=== PATIENT | male | born 1975 | race African-American/Black ===

== ENCOUNTER 2016-04-29 15:21 | Inpatient (IN) | payer MEDICAID, OTHER ==
--- NOTE | 2016-04-29 15:28 | EDPHY ---
H & P Time Seen by Provider: 04/29/16 15:23 HPI/ROS: CHIEF COMPLAINT: Increasing weakness, vomiting HISTORY OF PRESENT ILLNESS: The patient presents to the ED via ambulance with increasing weakness for the past several days and reportedly a history of several episodes of nonbilious vomiting today. The patient does have a history of HIV and is currently followed at [facility]. The patient reports that he believes he takes Truvada, Bactrim, azithromycin, gabapentin and Wilberforce The patient does report that he recently has been started on azithromycin for a possible MAC infection. Additionally the patient reports he did have a transfusion performed at [facility] last week. The patient denies symptoms of an acute infection. He had does report a history of fever x3 days. The patient denies acute diarrhea. The patient denies cough, myalgias or dysuria. REVIEW OF SYSTEMS: A comprehensive 10 point review of systems is otherwise negative aside from elements mentioned in the history of present illness. Source: Patient Exam Limitations: No limitations - Medical/Surgical History Hx Asthma: No Hx Chronic Respiratory Disease: No Hx Diabetes: No Hx Cardiac Disease: No Hx Renal Disease: No Hx Cirrhosis: No Hx Alcoholism: Yes Hx HIV/AIDS: Yes Hx Splenectomy or Spleen Trauma: No Other PMH: HIV, C-Diff, ETOH abuse, Drug abuse. - Social History Smoking Status: Former smoker - Physical Exam Exam: General Appearance: Thin, cachectic male Eyes: Pupils equal and round no pallor or injection ENT, Mouth: Mucous membranes moist Respiratory: There are no retractions, lungs are clear to auscultation Cardiovascular: Tachycardic Gastrointestinal: Abdomen is soft and nontender, no masses, bowel sounds normal Neurological: A&O, normal motor function, normal sensory exam, normal cranial nerves Skin: Warm and dry, no rashes Musculoskeletal: Neck is supple nontender Extremities: symmetrical, full range of motion Psychiatric: Patient is oriented X 3, there is no agitation Constitutional: Initial Vital Signs Temperature (C) 39.5 C H 04/29/16 15:34 Heart Rate 116 H 04/29/16 15:34 Respiratory Rate 20 04/29/16 15:34 Blood Pressure 107/77 04/29/16 15:34 O2 Sat (%) 97 04/29/16 15:34 O2 Delivery Mode Room Air Allergies/Adverse Reactions: decongestant's Allergy (Uncoded 04/29/16 17:01) Other-Enter Comments Home Medications: Medication Instructions Recorded Azithromycin [Zithromax] 500 mg PO DAILY 04/29/16 Darunavir Ethanolate [Prezista] 800 mg PO DAILY 04/29/16 Emtricitabine/Tenofovir [Truvada 1 tab PO DAILY 04/29/16 200MG/300MG (*)] Ethambutol HCl [Myambutol 400 MG 800 mg PO DAILY 04/29/16 (*)] Ferrous Sulfate [Ferrous Sulf 325 325 mg PO DAILY 04/29/16 MG (*)] Gabapentin [Neurontin 400 MG (*)] 400 mg PO BID 04/29/16 Hydrocodone/Acetaminophen [Wilberforce 1 - 2 tab PO Q8H PRN 04/29/16 5/325 (*)] Ondansetron Odt [Zofran Odt 4 mg 4 mg PO Q4H PRN 04/29/16 (*)] Rifabutin 150 mg PO DAILY 04/29/16 Ritonavir [Norvir] 100 mg PO DAILY 04/29/16 Sulfamethox/Tmp 800/160 mg 1 tab PO BID 04/29/16 [Bactrim Ds] Medical Decision Making - Diagnostics Imaging: Chest x-ray PA and lateral views: Images reviewed by myself and discussed with radiologist, negative for pneumonia or obvious source of infection. ED Course/Re-evaluation: The patient presents to the ED with a fever of 39.5. The patient was recently treated with azithromycin for possible MAC additionally the patient believes he has been on Bactrim chronically. The patient typically receives his HIV care in [place] however has been under the care of the [facility] in the past. In the ED today the patient was noted to be tachycardic and febrile. The patient was not hypotensive. The patient's venous lactate is normal. At this point time there is no evidence of a bacterial infection. I do feel given his HIV history he should be admitted for observation. Flu PCR is still pending. Consultation was made with Dr. Kalina Villalba who will admit the patient to the hospital this evening. Differential Diagnosis: Differential diagnosis considered includes influenza, pneumonia, gastroenteritis , bacteremia, metabolic abnormality - Data Points Laboratory Results: Laboratory Results 04/29/16 15:20 04/29/16 15:20 04/29/16 04/29/16 04/29/16 16:30 15:35 15:20 WBC 5.85 10^3/uL (3.80-9.50) RBC 4.12 L 10^6/uL (4.40-6.38) Hgb 11.7 L g/dL (13.7-17.5) Hct 36.3 L % (40.0-51.0) MCV 88.1 fL (81.5-99.8) MCH 28.4 pg (27.9-34.1) MCHC 32.2 L g/dL (32.4-36.7) RDW 17.1 H % (11.5-15.2) Plt Count 315 10^3/uL (150-400) MPV 9.6 fL (8.7-11.7) Neut % (Auto) 88.2 H % (39.3-74.2) Lymph % (Auto) 4.4 L % (15.0-45.0) [place] % (Auto) 5.5 % (4.5-13.0) Eos % (Auto) 0.2 L % (0.6-7.6) Baso % (Auto) 0.3 % (0.3-1.7) Nucleat RBC Rel Count 0.0 % (0.0-0.2) Absolute Neuts (auto) 5.16 10^3/uL (1.70-6.50) Absolute Lymphs (auto) 0.26 L 10^3/uL (1.00-3.00) Absolute Monos (auto) 0.32 10^3/uL (0.30-0.80) Absolute Eos (auto) 0.01 L 10^3/uL (0.03-0.40) Absolute Basos (auto) 0.02 10^3/uL (0.02-0.10) Absolute Nucleated RBC 0.00 10^3/uL (0-0.01) Immature Gran % 1.4 H % (0.0-1.1) Immature Gran # 0.08 10^3/uL (0.00-0.10) VBG Lactic Acid 1.0 mmol/L (0.7-2.1) Sodium 134 mEq/L (134-144) Potassium 4.1 mEq/L (3.5-5.2) Chloride 98 mEq/L (97-110) Carbon Dioxide 21 L mEq/l (22-31) Anion Gap 15 mEq/L (8-16) BUN 16 mg/dL (7-23) Creatinine 0.9 mg/dL (0.7-1.3) Estimated GFR > 60 Glucose 93 mg/dL (70-100) Calcium 8.9 mg/dL (8.5-10.4) Total Bilirubin 0.8 mg/dL (0.1-1.4) Conjugated Bilirubin 0.6 H mg/dL (0.0-0.5) Unconjugated Bilirubin 0.2 mg/dL (0.0-1.1) AST 149 H IU/L (17-59) ALT 119 H IU/L (21-72) Alkaline Phosphatase 130 H IU/L (38-126) Total Protein 9.0 H g/dL (6.3-8.2) Albumin 3.6 g/dL (3.5-5.0) Lipase 140.0 IU/L (23-300) Influenza A & B (PCR) Pending Medications Given: Discontinued Medications Acetaminophen (Tylenol) 1,000 mg PO EDNOW ONE Stop: 04/29/16 16:16 Last Admin: 04/29/16 16:15 Dose: 1,000 mg Sodium Chloride (Ns) 1,000 mls @ 0 mls/hr IV ONCE ONE PRN Reason: Wide Open Stop: 04/29/16 15:30 Last Admin: 04/29/16 16:15 Dose: 1,000 mls Ibuprofen (Motrin) 800 mg PO EDNOW ONE Stop: 04/29/16 16:17 Last Admin: 04/29/16 16:16 Dose: 800 mg Departure - Departure Disposition: [facility] Inpatient Acute Clinical Impression: Febrile disorder, Human immunodeficiency virus (HIV) infection Condition: Fair
[2016-04-29] MEDS ORDERED: NS 1,000 ML IV ONE (15:29)
[2016-04-29 15:37] LABS: % IMMATURE GRANULYOCYTES 1.4 % (0.0-1.1); ABSOLUTE IMMATURE GRANULOCYTES 0.08 10^3/uL (0.00-0.10); ADD DIFF? NO; ADD MORPH? NO; ADD SCAN? NO; ATYPICAL LYMPHOCYTE FLAG 0 (0-99); FRAGMENT RBC FLAG 20 (0-99); HEMATOCRIT 36.3 % (40.0-51.0); HEMOGLOBIN 11.7 g/dL (13.7-17.5); LEFT SHIFT FLG 70 (0-99); LIPEMIA HEMOLYSIS FLAG 80 (0-99); MEAN CELL HEMOGLOBIN 28.4 pg (27.9-34.1); MEAN CELL HEMOGLOBIN CONCENTR. 32.2 g/dL (32.4-36.7); MEAN CELL VOLUME 88.1 fL (81.5-99.8); MEAN PLATELET VOLUME 9.6 fL (8.7-11.7); PLATELET CLUMPS FLAG 10 (0-99); PLATELET COUNT 315 10^3/uL (150-400); RED BLOOD CELL COUNT 4.12 10^6/uL (4.40-6.38); RED CELL DISTRIBUTION WIDTH 17.1 % (11.5-15.2)
[2016-04-29 15:50] LABS: ALANINE AMINOTRANSFERASE 119 IU/L (21-72); ALBUMIN 3.6 g/dL (3.5-5.0); ALKALINE PHOSPHATASE 130 IU/L (38-126); ANION GAP 15 mEq/L (8-16); ASPARTATE AMINOTRANSFERASE 149 IU/L (17-59); BILIRUBIN,TOTAL 0.8 mg/dL (0.1-1.4); BILIRUBIN-CONJUGATED 0.6 mg/dL (0.0-0.5); BILIRUBIN-UNCONJUGATED 0.2 mg/dL (0.0-1.1); CALCIUM 8.9 mg/dL (8.5-10.4); CARBON DIOXIDE 21 mEq/l (22-31); CHLORIDE 98 mEq/L (97-110); CREATININE 0.9 mg/dL (0.7-1.3); GLOMERULAR FILTRATION RATE > 60; GLUCOSE 93 mg/dL (70-100); POTASSIUM 4.1 mEq/L (3.5-5.2); SODIUM 134 mEq/L (134-144)
[2016-04-29] MEDS ORDERED: ACETAMINOPHEN 500 MG TAB ONE (16:06)
[2016-04-29] MEDS ORDERED: IBUPROFEN 200 MG TAB PO ONE ×2 (16:06→16:16)
--- NOTE | 2016-04-29 16:12 | DX ---
Chest, AP and Lateral History: Fever, vomiting since this morning, weakness, dizziness, HIV infection Comparison: March 24, 2016 portable Findings: Lungs are clear, without infiltrate or consolidation. Heart size is normal. There is no oscar nopathy or mass lesion. There is no pleural effusion or pneumothorax. Bones are unremarkable for age. There are prominently gas-filled loops of bowel in the upper abdomen. Impression: 1. Normal chest without pneumonia. 2. Prominent gas-filled loops of bowel in the abdomen. Would a 2 view abdomen series be of any utilit y?
[2016-04-29] MEDS ORDERED: ACETAMINOPHEN 500 MG TAB PO ONE (16:15)
[2016-04-29] MEDS ORDERED: IBUPROFEN 600 MG TAB PO PRN (19:43)
[2016-04-29] MEDS ORDERED: ACETAMINOPHEN 325 MG TAB PO PRN (19:44)
[2016-04-29] MEDS: GABAPENTIN 400 MG CAP PO SCH (20:33)
[2016-04-29] MEDS: HYDROCODONE/APAP 5/325 TAB PO PRN (20:33)
--- NOTE | 2016-04-29 20:33 | GHP ---
[f rep st] HISTORY AND PHYSICAL DATE OF ADMISSION: 04/29/2016 CHIEF COMPLAINT: Fever. HISTORY: The patient is a 41-year-old HIV-positive male, who complains of fever for 3 days. He gets all of his HIV care through [facility]. He is on anti-retroviral therapy and has been compliant. 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 He now comes in with 3 days o f fever. He denies any cough. Denies any dysuria. He has chronic abdominal pain, which he attribut es to his MAC. He has chronic shortness of breath, which has also been attributed to his MAC. His m ain complaint is increased pain related to his lower extremity neuropathy. PAST MEDICAL HISTORY: 1. HIV. 2. MAC. 3. Neuropathy. MEDICATIONS: Please see computer record for full detailed list. ALLERGIES: No known drug allergies. SOCIAL HISTORY: No smoking. He drank heavily alcohol but quit in November and has been clean since that time. Also has a history of drug abuse in the distant past and he is currently clean. He has never been an IV drug abuser. He lives in an apartment in [place]. REVIEW OF SYSTEMS: Complete review of systems obtained. Review of systems negative on constitutiona l, HEENT, GI, pulmonary, cardiovascular, , hematology, skin, musculoskeletal, endocrine, and psych, except for positives and negatives in HPI. FAMILY HISTORY: Reviewed, noncontributory to presenting complaint. PHYSICAL EXAMINATION: GENERAL: Well-developed, well-nourished male, in no acute distress. VITAL SI GNS: Temperature is 39.5, pulse 95, blood pressure 99/59, saturating 96% on room air. EYE EXAMINATI ON: Normal conjunctivae. Pupils reactive to light. ENT: Normal ears, nose. Hearing intact. Norm al teeth. Oropharynx moist. NECK: Trachea midline. No thyromegaly. CHEST: Normal effort. LUNGS : Clear to auscultation bilaterally. CARDIOVASCULAR: Regular rhythm. No murmur. No lower extremi ty edema. ABDOMEN: Soft, nontender. No hepatosplenomegaly. SKIN: Warm, dry, intact. No rash. M USCULOSKELETAL: No cyanosis or clubbing. Strength 5/5 upper and lower extremities. NEUROLOGIC: Cr anial nerves intact. Normal sensation to light touch. PSYCH: Alert and oriented x3. Normal affect . Normal judgment. Normal memory. LABS: White count 5.85, hematocrit 36.3, platelets 315. Sodium 134, potassium 4.1, chloride 98, bic arb 21, BUN 16, creatinine 0.9, glucose 93. AST is 149, ALT is 119, total protein 9.0. Lactate is 1. 0. Influenza negative. Chest x-ray is negative for pneumonia. HOSPITAL COURSE: This case was discussed with Dr. Ander Alas, emergency room physician. He suspects viral illness. However, given his underlying HIV, does think he needs to be admitted for an observa tion period. He did not start any antibiotics in the emergency room. ASSESSMENT/PLAN: 1. Fever. At this point, no source is identified. The patient is very nontoxic appearing. This co uld all be a viral illness. We will continue to hold antibiotics pending cultures. Will consult Inf ectious Disease. 2. Human immunodeficiency virus. Unclear status regarding viral load and CD4 count. He adamantly d enies any medication noncompliance. We will continue his HAART. 3. Mycobacterium avium complex. Continue ethambutol, azithromycin, and rifabutin. 4. Neuropathy. Resume gabapentin. 5. Increased liver function tests. He does not have any right upper quadrant pain. We will check a n abdominal ultrasound, a viral hepatitis panel. CODE STATUS: Full. ADMISSION STATUS: 1. Will admit to observation pending clinical course. 2. DVT prophylaxis. He is low risk and observation, so will hold off starting pharmacologic prophyl axis at this time. /[id number]/MODL
[2016-04-29] MEDS: SULFAMETHOX/TMP 800/160 MG 1 TAB PO SCH (20:34)
[2016-04-29] MEDS: NS 1,000 ML IV SCH (20:54)
[2016-04-29] MEDS ORDERED: NS 1,000 ML BAG *FOR SEPSIS ORDER SET ONLY IV ONE (22:28)
[2016-04-29] MEDS: CEFEPIME HCL 2 GM in D5W 100 ML IV SCH (23:22)
[2016-04-29] MEDS ORDERED: ALTEPLASE 2 MG VIAL IVP PRN (23:49)
[2016-04-30] MEDS ORDERED: NS 1,000 ML BAG *FOR SEPSIS ORDER SET ONLY IV ONE (02:23)
--- NOTE | 2016-04-30 02:23 | HOSPPROG ---
Hospitalist Progress Note Assessment/Plan: Cross cover note: Called for BP of 70/50 by nursing, reviewed chart, evaluated patient, started on sepsis protocol. Despite aggressive fluid resuscitation, BP remains low with systolics in the 70s. Hx of HIV and MAC, reviewed cxr w/o e/o PNA. UA pending. Has had some mild abdominal pain and increased lfts, abd US ordered and read pending. Discussed with general surgery who will place central line. Pressors ordered. Abd CT to be performed when patient stabilized. CVP when line in place. Patient somnolent but arousable, lungs clear, abd mildly tender. > 45 minutes spent in care of this patient, more than half in face to face critical care time, transfer to ICU and coordination of care with general surgery and nursing. Objective: Vital Signs Temp Pulse Resp BP Pulse Ox 36.1 C 58 L 16 75/45 L 98 04/30/16 02:00 04/30/16 02:00 04/30/16 02:00 04/30/16 02:00 04/30/16 02:00 04/28/16 04/29/16 04/30/16 05:59 05:59 05:59 Intake Total 1000 Output Total 475 Balance 525 ICD10 Worksheet Patient Problems: Problems Problem Status Diagnosed Febrile illness Acute HIV (human immunodeficiency virus infection) Acute
[2016-04-30] MEDS ORDERED: VASOPRESSIN/DEXTROSE 250 ML IV SCH (02:30)
[2016-04-30] MEDS ORDERED: NOREPINEPHRINE BITARTRATE 4 MG in D5W 500 ML IV SCH (02:30)
[2016-04-30] MEDS: HYDROCODONE/APAP 5/325 TAB PO PRN ×3 (03:00→20:00)
[2016-04-30] MEDS ORDERED: DOPamine/DEXTROSE/250 ML BAG IV ONE (03:28)
[2016-04-30 03:36] LABS: COLOR PALE YELLOW; LEUKOCYTE ESTERASE,URINE NEGATIVE (NEGATIVE); NITRITE,URINE NEGATIVE (NEGATIVE)
[2016-04-30 04:14] LABS: MIXED VENOUS O2 SATURATION 68 % (65-75)
--- NOTE | 2016-04-30 05:00 | CPEKG ---
Heart Rate: 54 RR Interval: 1111 P-R Interval: 168 QRSD Interval: 78 QT Interval: 464 QTC Interval: 440 P Axtell: 65 QRS Axtell: 53 T Wave Axtell: 50 EKG Severity - ABNORMAL ECG - EKG Impression: SINUS RHYTHM EKG Impression: ABNORMAL T, CONSIDER ISCHEMIA, ANTERIOR LEADS Electronically Signed By: Maureen Lehman 30-Apr-2016 07:29:25
[2016-04-30 05:28] LABS: MIXED VENOUS O2 SATURATION 69 % (65-75)
[2016-04-30 05:33] LABS: % IMMATURE GRANULYOCYTES 1.8 % (0.0-1.1); ABSOLUTE IMMATURE GRANULOCYTES 0.07 10^3/uL (0.00-0.10); ADD DIFF? NO; ADD MORPH? NO; ADD SCAN? NO; ATYPICAL LYMPHOCYTE FLAG 0 (0-99); FRAGMENT RBC FLAG 0 (0-99); HEMATOCRIT 26.8 % (40.0-51.0); HEMOGLOBIN 8.6 g/dL (13.7-17.5); LEFT SHIFT FLG 80 (0-99); LIPEMIA HEMOLYSIS FLAG 80 (0-99); MEAN CELL HEMOGLOBIN 28.5 pg (27.9-34.1); MEAN CELL HEMOGLOBIN CONCENTR. 32.1 g/dL (32.4-36.7); MEAN CELL VOLUME 88.7 fL (81.5-99.8); MEAN PLATELET VOLUME 9.5 fL (8.7-11.7); PLATELET CLUMPS FLAG 0 (0-99); PLATELET COUNT 193 10^3/uL (150-400); RED BLOOD CELL COUNT 3.02 10^6/uL (4.40-6.38); RED CELL DISTRIBUTION WIDTH 17.2 % (11.5-15.2)
[2016-04-30 05:53] LABS: ALANINE AMINOTRANSFERASE 71 IU/L (21-72); ALBUMIN 1.9 g/dL (3.5-5.0); ALKALINE PHOSPHATASE 80 IU/L (38-126); ANION GAP 6 mEq/L (8-16); ASPARTATE AMINOTRANSFERASE 75 IU/L (17-59); BILIRUBIN,TOTAL 0.5 mg/dL (0.1-1.4); BILIRUBIN-CONJUGATED 0.4 mg/dL (0.0-0.5); BILIRUBIN-UNCONJUGATED 0.1 mg/dL (0.0-1.1); CALCIUM 7.1 mg/dL (8.5-10.4); CARBON DIOXIDE 21 mEq/l (22-31); CHLORIDE 119 mEq/L (97-110); GLOMERULAR FILTRATION RATE > 60; GLUCOSE 89 mg/dL (70-100); POTASSIUM 3.5 mEq/L (3.5-5.2); SODIUM 146 mEq/L (134-144); TOTAL PROTEIN 5.6 g/dL (6.3-8.2)
--- NOTE | 2016-04-30 07:54 | GOP ---
[f rep st] OPERATIVE REPORT DATE OF OPERATION: 04/30/2016 SURGEON: Joey Aguilar MD ANESTHESIA: Local. PREOPERATIVE DIAGNOSIS: Sepsis. POSTOPERATIVE DIAGNOSIS: Sepsis. PROCEDURE PERFORMED: Ultrasound-guided right internal jugular triple-lumen central venous catheter p lacement. FINDINGS: Triple-lumen successfully placed into internal jugular vein using ultrasound guidance. A postplacement chest film shows adequate placement without complication. SPECIMENS: None. ESTIMATED BLOOD LOSS: 2 cc. DESCRIPTION OF PROCEDURE: After reviewing the risks, benefits, and alternatives, the consent was sig gemma. A World Health Organization time-out was performed. The patient's right neck was then prepped and draped in typical sterile fashion. Using the ultrasound, I identified the internal jugular vein on the right side. I anesthetized the area using 1% lidocaine. After successfully anesthetized, I a ccessed the vein using a Seldinger technique. Threaded the wire through the vein and dilated, and jarquin bsequently placed the catheter within the vein. The triple-lumen, all 3 lumens functioned appropriat lisa. It was attached to the skin with a silk suture, and a sterile dressing with Biopatch was placed . A postplacement chest film was performed immediately after placement, showing adequate placement w ithout apparent complication. The patient tolerated the procedure well. /[id number]/MODL
--- NOTE | 2016-04-30 08:16 | DX ---
Portable Chest 252 a.m. History: Central line placement, fever, HIV, weakness and dizziness Comparison: Yesterday 1520 Findings: A right external jugular venous catheter is present with tip overlying the superior vena ca va. There is no pneumothorax. Lungs are clear. Inspiratory phase is prominent, pulmonary vessels are sparse and heart size is small, raising the possibility of air trapping. Impression: 1. Good central line placement without pneumothorax. 2.? Air trapping.
--- NOTE | 2016-04-30 08:56 | US ---
Complete Abdominal Ultrasound Indication: HIV. Increasing LFTs. Comparison: CT scan of the abdomen and pelvis dated March 13, 2016. Technique: Complete abdominal ultrasound is performed. Findings: Abdominal aorta is normal at 1.9 cm. Liver is normal in echotexture. It is 19 cm. Contour i s normal. Portal vein is patent. Hepatic veins are normal directional in flow. Gallbladder shows three nondependent structures adherent to the wall. Gallbladder polyp is a possibil ity. Gallbladder wall measures 1.7 mm. Common duct measures 4.5 mm. No stones or sludge otherwise. So nographic Noriega sign is negative. Right kidney measures 10.1 x 3.7 x 5.5 cm. Left kidney measures 10.2 x 4.2 x 5.3 cm. Both are normal. No hydronephrosis. No mass. Spleen is normal at 9 cm. Echotexture is mildly heterogeneous, but there is no focal mass. No ascites or pleural effusion. Impression: 1. Three nondependent adherent foci in the gallbladder, possibly representing polyps. 2. Nonspecific heterogeneous spleen. 3. Otherwise, normal complete abdominal ultrasound.
[2016-04-30] MEDS ORDERED: AZITHROMYCIN 500 MG PO SCH (09:00)
--- NOTE | 2016-04-30 09:18 | HOSPPROG ---
Hospitalist Progress Note Assessment/Plan: #Septic shock: unclear source. No e/o PNA, UA and influenza negative. Denies soure throat, diarrhea. Had abd pain last night with elevated LFTs. U/S unremarkable, but further eval with CT. Hep serologies pending -required dobutamine overnight, weaning off. Bradycardia with Levophed. Normal lactate. Cefepime overnight. -TTE with normal EF -Appreciate ID consultation #MAC infection: cont Ethambutal, Rifubutin, Azithro #Transaminitis: may be due to hypotension. US unremarkable. CT abd pending #HIV: cont home meds: followed by Dr. Hurtado at [facility] #Peripheral neuropathy: gabapentin #diet: regular #DVT ppx: ambulating #Disp: warrants inpatient admission with septic shock requiring IV abx, pressors Subjective: no SOB. No abd pain this morn. Objective: Vital Signs Temp Pulse Resp BP Pulse Ox 35.7 C L 60 14 91/51 L 100 04/30/16 07:00 04/30/16 08:00 04/30/16 08:00 04/30/16 08:00 04/30/16 08:00 Laboratory Results 04/30/16 05:10 04/30/16 05:10 04/29/16 04/30/16 05/01/16 05:59 05:59 05:59 Intake Total 6481 Output Total 0745 725 Balance 3956 -725 - Physical Exam Constitutional: no apparent distress, cachectic Eyes: PERRL Ears, Nose, Mouth, Throat: moist mucous membranes, hearing normal, other (no erythema, ulcerations) Cardiovascular: regular rate and rhythym, no murmur, rub, or gallop Respiratory: no respiratory distress, no rales or rhonchi Gastrointestinal: normoactive bowel sounds, soft, non-tender abdomen, no palpable masses Genitourinary: no bladder fullness, no bladder tenderness Skin: warm, normal color, other (no rash) Musculoskeletal: full muscle strength Neurologic: AAOx3 ICD10 Worksheet Patient Problems: Problems Problem Status Diagnosed Febrile illness Acute HIV (human immunodeficiency virus infection) Acute
[2016-04-30] MEDS: FERROUS SULFATE 325 MG TAB PO SCH (10:42)
[2016-04-30] MEDS: AZITHROMYCIN 250 MG TAB PO SCH (10:42)
[2016-04-30] MEDS: GABAPENTIN 400 MG CAP PO SCH ×2 (10:42→20:00)
[2016-04-30] MEDS: CEFEPIME HCL 2 GM in D5W 100 ML IV SCH ×2 (10:42→20:01)
[2016-04-30] MEDS: DARUNAVIR ETHANOLATE 800 MG TAB PO SCH (10:43)
[2016-04-30] MEDS: EMTRICITABINE/TENOFOVIR 200MG/300MG TAB PO SCH (10:43)
[2016-04-30] MEDS: ETHAMBUTOL HCL 400 MG TAB PO SCH (10:43)
[2016-04-30] MEDS: RITONAVIR 100 MG TAB PO SCH (10:44)
[2016-04-30] MEDS: SULFAMETHOX/TMP 800/160 MG 1 TAB PO SCH ×2 (10:44→20:00)
[2016-04-30] MEDS: RIFABUTIN 150 MG CAP PO SCH (10:44)
--- NOTE | 2016-04-30 12:57 | ECHO ---
[id number] + + [id number] : : [place] [address] : : [phone] + + Adult Echocardiographic Report + -------+ :Name: Maddison SIMPSON Date: 04/30/2016 09:54 AM : : Hospital Admission Number: [id number] Locati on: 257: :: 1975 Gender: Male Height: 72 in : :Age: 41 yrs Race: BAA Weight: 138 lb : :Reason For Study: Bradycardia/hypotensive/HIV : : BSA: 1.8 meter s2 : + -------+ Doppler Measurements & Calculations MV E max ivory: 65.2 cm/sec Ao V2 max: 107.2 cm/sec TR max ivory: 224.0 cm/sec MV A max ivory: 36.0 cm/sec Ao max P.6 mmHg TR max P.1 mmHg MV E/A: 1.8 RAP systole: 5.0 mmHg RVSP(TR): 25.1 mmHg Left Ventricle The left ventricle is normal in size. Left ventricular systolic function is normal. Ejection Fraction = 60%. The left ventricular wall motion is normal. Right Ventricle The right ventricle is normal size. Atria The left atrial size is normal. Right atrial size is normal. Mitral Valve The mitral valve is normal. There is trace to mild mitral regurgitation. Tricuspid Valve Normal tricuspid valve. There is mild tricuspid regurgitation. Right ventricular systolic pressure is normal. Aortic Valve The aortic valve opens well. Pulmonic Valve The pulmonic valve is not well visualized. Great Vessels The aortic root is normal size. Pericardium/Pleural There is no pericardial effusion. Conclusion A complete two-dimensional transthoracic echocardiogram was performed (2D, M-mode, Doppler and color flow Doppler). Limited views available for visualization. (1) Left ventricular systolic ejection fraction was normal (60%) - normal wall motion (2) No left ventricular hypertrophy (3) No diastolic dysfunction (not clearly assessed in this study) (4) Normal right ventricular size and function (5) Normal atrial dimensions (6) Trace/mild mitral regurgitation (7) Trileaflet aortic valve without sclerosis or insufficiency (8) Mild tricuspid regurgitation - RVSP was within normal limits (9) Poor visualization of the pulmonic valve (10) No comparison echocardiograms Final Reading Physician: Alana Limon signed on 04/30/2016 12:56 PM Ordering Physician: Emanuel Florence Performed By: Jie Varner, DURANCS
[2016-04-30] MEDS ORDERED: IOPAMIDOL (ISOVUE-300) 100 ML BTL IV ONE ×2 (13:10→13:23)
--- NOTE | 2016-04-30 15:54 | CT ---
CT Scan of the Abdomen and Pelvis (With Contrast) Clinical Indications: Fever x3 days with abdominal pain, HIV positive Comparison: Ultrasound yesterday (nonspecific heterogeneous spleen), CT March 13, 2016 Technique: Dilute contrast was given orally prior to scanning. mL of Isovue 300 were given intraveno usly by machine power injection. Multidetector helical CT imaging was performed from the diaphragm t o the symphysis pubis. Dose reduction techniques were utilized. Findings: Abdomen: There is a large central abdominal mesenteric tubular, undulating, fluid collection associat ed with a thin enhancing ring and small air-fluid levels at its nondependent margin that is consiste nt with either a featureless loop of bowel or a mesenteric abscess. On coronal reconstructions the le ft side of this fluid collection has one superior and one inferior projection. There is no percutaneo us access. The stomach is distended with food and fluid. There are dilated loops of edematous jejunum . The largest loop measures approximately 3.2 cm in diameter. As enteric edema makes definition diffi cult. There is certainly good contrast in the superior mesenteric artery and vein. There is minimal dependent bibasilar atelectasis with a tiny right basilar pleural effusion. The live r is normal. The portal vein and splenic vein are patent. There is chronic narrowing of the distal h epatic veins where they enter the inferior vena cava. There is no evidence for hepatic vein thrombosi s, but this anatomy might make the patient at risk for Budd-Chiari syndrome. The biliary ducts and ga llbladder are unremarkable. The pancreas and spleen are normal. The spleen is homogeneous and normal in size measuring 9 cm in length. It is stable since February 2016. The adrenal glands and kidneys are normal. No adenopathy and no masses are found. No aneurysm of the abdominal aorta. Pelvis: I suspect there is a similar abnormal fluid collection (suspect abscess) in the upper prerect al posterior pelvis. There is prominent fecal material in the rectum and distal colon. The urinary bl adder is unremarkable. No free fluid in the pelvis. No masses are identified. Bowel loops are teresa l. No evidence for pelvic abscess. Impression: 1. Mesenteric abscess (suspect) versus featureless loop of dilated bowel (doubt). There m ay be a second much smaller abscess in the prerectal pelvis. Consider repeat exam with oral and recta l contrast. This appears to be causing localized ileus. The stomach is distended and I suspect the pa tient would benefit from an NG tube. Results communicated to Dr. Blevins. General information for patients regarding this examination can be found at [email or web address]. If you have questions or comments about this report, please contact me at [phone] (hospital) or [phone] (cell).
[2016-04-30] MEDS: ONDANSETRON 4 MG/2 ML VIAL IVP PRN (18:02)
--- NOTE | 2016-04-30 21:31 | GCON ---
[f rep st] CONSULTATION INFECTIOUS DISEASES CONSULTATION DATE OF CONSULTATION: 04/30/2016 REFERRING PHYSICIAN: Di Blevins MD REASON FOR CONSULTATION: 1. Fevers. 2. Human immunodeficiency virus. HISTORY OF PRESENT ILLNESS: The patient is a 41-year-old male who was admitted to [facility] through the emergency room on the evening of 04/29/2016. The patient was admitted with a comp laint of fever for 3 days. He was febrile greater than 39 on admission. The patient is HIV positive . He gets his HIV care currently through [facility]. He has been on boosted darunavir and Truvad a therapy since November of last year. He is very compliant with treatment. The patient was diagno sed with MAC at that time as well, and has been on rifampin and ethambutol for that with azithromycin added only recently, 1 week ago. The patient now presents with fever, but no localizing symptoms. He has chronic abdominal pain and had some abdominal pain last night, but none today. The patient wa s admitted and started on cefepime. His antiretrovirals were continued. Currently, he is resting co mfortably in his bed. He appears nontoxic. Fever has not recurred since admission. PAST MEDICAL HISTORY: 1. HIV. 2. Mycobacterium avium complex. 3. Peripheral neuropathy. PAST SURGICAL HISTORY: None noted. ANTIBIOTICS: Cefepime. ALLERGIES: No known drug allergies. 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 Lives now in [place] and [place]. Fo rmer alcohol user, but no alcohol for nearly 5 months. Denies any tobacco use. Has a remote history of drug abuse. FAMILY HISTORY: Reviewed but noncontributory. REVIEW OF SYSTEMS: Other than that detailed above in the History of Present Illness, a comprehensive 10-system review is negative. PHYSICAL EXAMINATION: VITAL SIGNS: Temperature maximum is 39.5, temperature current is 36.3, heart rate is 75, respiratory rate is 12, blood pressure is 98/63. GENERAL: The patient is a well-formed, well-nourished, thin male in no acute distress. He is not toxic in appearance. He is alert and mimi ented x3. He is in a pleasant demeanor. HEENT: Normocephalic for age. Atraumatic. No scleral ict erus. No oral lesion. No drainage from the nares. Eyes: Lids and conjunctivae are within normal l imits. Pupils are equal and round bilaterally. NECK: Supple without meningismus. LUNGS: Clear to auscultation bilaterally with good effort. HEART: Regular rate and rhythm. No murmur, rub, or gal lop noted. No significant peripheral edema. ABDOMEN: Soft, nontender, no masses. SKIN: Warm and dry to the touch. No rash or lesion noted. MUSCULOSKELETAL: No muscle belly tenderness is noted. No joint enlargement, effusion, or arthritis is seen. NEURO: Cranial nerves II through XII seem to be intact. Peripheral sensation seems intact in extremities. LABORATORY DATA: Patient has a CBC dated 04/30/2016 which shows a white blood cell count of 3.90, he moglobin of 8.6, hematocrit 26.8, platelet count of 193. Differential is left-shifted with 83% segme nted neutrophils. Serum chemistries on 04/30/2016 show a sodium of 146, potassium of 3.5, chloride of 119, bicarbonate of 21, BUN of 19, and creatinine 1.0. Total bilirubin is 0.5, AST is 75, ALT is 71. Urinalysis on 04/30/2016 is normal. Influenza PCR is negative from 04/29/2016. Acute hepatitis panel is pending. Microbiologic Data: The patient has blood cultures from 04/29/2016 which are pending. Radiologic Data: The patient has a chest x-ray dated 04/30/2016 which shows good central line placem ent with no pneumothorax. The patient also has an abdominal CT dated 04/30/2016 which shows a possib le small collection in the mesentery. Otherwise benign. ASSESSMENT: Fever. Unclear etiology, but initially with some transaminitis. I do not think that th e possible collection seen in the abdominal pelvic CT scan correlates with symptoms. Would operations accountant dif ferently if patient was bacteremic, but I suspect there is nothing to be gained from trying to access this collection in the mesentery. I more favor this being a viral illness. Immune reconstitution i s a possibility, but the patient has been on antiretrovirals for a significantly long period of time, that immune reconstitution inflammatory syndrome secondary to Mycobacterium avium complex is probabl y unlikely at this time point. Will continue the antiretroviral therapy for human immunodeficiency v irus, as well as the antimycobacterial therapy for Mycobacterium avium complex. PLAN: 1. Continue home medications. 2. Continue cefepime empirically until cultures have matured. 3. Follow clinical course and temperature curve. Thank you. /[id number]/MODL
[2016-05-01 03:22] LABS: HEMATOCRIT 28.1 % (40.0-51.0); MEAN CELL HEMOGLOBIN 28.4 pg (27.9-34.1); MEAN CELL VOLUME 88.6 fL (81.5-99.8); RED BLOOD CELL COUNT 3.17 10^6/uL (4.40-6.38); RED CELL DISTRIBUTION WIDTH 17.1 % (11.5-15.2)
[2016-05-01 03:52] LABS: ALANINE AMINOTRANSFERASE 89 IU/L (21-72); ALBUMIN 2.5 g/dL (3.5-5.0); ALKALINE PHOSPHATASE 83 IU/L (38-126); ANION GAP 9 mEq/L (8-16); ASPARTATE AMINOTRANSFERASE 104 IU/L (17-59); BILIRUBIN,TOTAL 0.4 mg/dL (0.1-1.4); CALCIUM 8.1 mg/dL (8.5-10.4); CARBON DIOXIDE 19 mEq/l (22-31); CHLORIDE 108 mEq/L (97-110); CREATININE 0.7 mg/dL (0.7-1.3); GLOMERULAR FILTRATION RATE > 60; GLUCOSE 91 mg/dL (70-100); POTASSIUM 4.4 mEq/L (3.5-5.2); SODIUM 136 mEq/L (134-144); TOTAL PROTEIN 6.4 g/dL (6.3-8.2)
[2016-05-01] MEDS: HYDROCODONE/APAP 5/325 TAB PO PRN ×3 (03:57→20:27)
[2016-05-01] MEDS ORDERED: FAMOTIDINE 20 MG TAB PO ONE (05:00)
[2016-05-01] MEDS: CEFEPIME HCL 2 GM in D5W 100 ML IV SCH ×2 (08:18→20:27)
[2016-05-01] MEDS: GABAPENTIN 400 MG CAP PO SCH ×2 (08:18→20:27)
[2016-05-01] MEDS: EMTRICITABINE/TENOFOVIR 200MG/300MG TAB PO SCH (08:19)
[2016-05-01] MEDS: RIFABUTIN 150 MG CAP PO SCH (08:19)
[2016-05-01] MEDS: SULFAMETHOX/TMP 800/160 MG 1 TAB PO SCH ×2 (08:19→20:27)
[2016-05-01] MEDS: ETHAMBUTOL HCL 400 MG TAB PO SCH (08:19)
[2016-05-01] MEDS: RITONAVIR 100 MG TAB PO SCH (08:19)
[2016-05-01] MEDS: DARUNAVIR ETHANOLATE 800 MG TAB PO SCH (08:19)
[2016-05-01] MEDS: FERROUS SULFATE 325 MG TAB PO SCH (08:19)
[2016-05-01] MEDS: AZITHROMYCIN 250 MG TAB PO SCH (08:31)
--- NOTE | 2016-05-01 16:21 | PCMIDPN ---
Assessment/Plan: Assessment: Fever nonlocalizing in patient with underlying HIV. Unclear migue CD4 count. Patient is on treatment for disseminated MAC. This means is likely migue was less than 50. He is compliant on his boosted darunavir and Truvada anti- retroviral therapy. Clinically he has no localizing signs or symptoms. Reviewing the abdominal and pelvic CT scan from yesterday the patient may have a collection in his upper pelvis. We will repeat the CT scan of the abdomen pelvis with oral contrast in order to differentiate whether that is a loop of bowel or a true collection. In the meantime will continue empiric cefepime. Cultures thus far no growth to date. Plan: 1. Continue cefepime. 2. Repeat CT scan of the abdomen and pelvis with oral contrast. 3. Follow clinical course and fever curve. Subjective: Patient is resting in his hospital bed this afternoon. He is having fever. No localizing signs or symptoms. Denies abdominal pain. Objective: Cefepime # 2 Vital Signs Temp Pulse Resp BP Pulse Ox 39.4 C H 112 H 16 98/62 L 100 05/01/16 13:00 05/01/16 13:00 05/01/16 13:00 05/01/16 13:00 05/01/16 13:00 Laboratory Results 05/01/16 03:00 05/01/16 03:00 04/30/16 05/01/16 05/02/16 05:59 05:59 05:59 Intake Total 3307 Output Total 2700 900 Balance 607 -900 - Physical Exam General Appearance: WD/WN, alert, no apparent distress, thin, non-toxic Respiratory: lungs clear, normal breath sounds, No respiratory distress Cardiac/Chest: regular rate, rhythm, No tachycardia Extremities: non-tender, normal inspection Abdomen: non-tender, soft, No mass Skin: normal color, warm/dry, No rash Neuro/Psych: alert, normal mood/affect, oriented x 3 ICD10 Worksheet Patient Problems: Problems Problem Status Diagnosed Febrile illness Acute HIV (human immunodeficiency virus infection) Acute
--- NOTE | 2016-05-01 16:39 | PDINTPN ---
Director Telemetry Progress Note Assessment/Plan: Assessment: Fever: ? cause. Elevated transaminases and possible abscess on CT abdomen are the only localizing findings. On Cefepime. Elevated transaminases: Improved yesterday, up a bit today. Possible mesenteric abscess: Unusual to be essentially asymptomatic. Anemia: Stable today HIV: On antiretroviral Rx MAC: On triple therapy Plan: Repeat CT abdomen, with CV and PO contrast. Follow H/H, LFTs Continue current Cefepime, as well as antiretroviral therapy and Rx for MAC. 05/01/16 16:35 Subjective: Denies any localizing symptoms. No CP, dyspnea. No abdominal pain currently, no diarrhea Objective: Vital Signs Temp Pulse Resp BP Pulse Ox 39.4 C H 112 H 16 98/62 L 100 05/01/16 13:00 05/01/16 13:00 05/01/16 13:00 05/01/16 13:00 05/01/16 13:00 Laboratory Results 05/01/16 03:00 05/01/16 03:00 04/30/16 05/01/16 05/02/16 05:59 05:59 05:59 Intake Total 3307 Output Total 2700 900 Balance 607 -900 Physical Exam - Physical Exam General Appearance: alert, no apparent distress EENT: normal ENT inspection Neck: normal inspection Respiratory: normal breath sounds Cardiac/Chest: regular rate, rhythm, No edema Abdomen: normal bowel sounds, non-tender Skin: normal color, warm/dry Extremities: normal inspection Neuro/Psych: alert, normal mood/affect, oriented x 3 ICD10 Worksheet Patient Problems: Problems Problem Status Diagnosed Febrile illness Acute HIV (human immunodeficiency virus infection) Acute
--- NOTE | 2016-05-01 17:08 | GCON ---
[f rep st] CONSULTATION PULMONARY/CRITICAL CARE CONSULTATION DATE OF CONSULTATION: 04/30/2016 REFERRING PHYSICIAN: Di Blevins MD REASON FOR CONSULTATION: Evaluation and management of fevers and anemia. HISTORY: The patient is a 41-year-old male, who has a history of HIV with disseminated Mycobacterium avium complex, currently on HIV therapy through [facility]. He as in his usual state of feeling fairly well when, about 4 days ago, he had the onset of a fever. He was admitted to the hospital yes terday. He has some chronic abdominal pain that perhaps was a little bit worse on admission, but sandra t has now improved. He overall continues to feel poorly in a nonspecific way with no reports of naus ea or vomiting, muscle aches, chest pain, cough, shortness of breath, or urinary symptoms. PAST MEDICAL HISTORY: 1. HIV. 2. Peripheral neuropathy. MEDICATIONS: At the time of admission are Darunavir, azithromycin, rifabutin, ondansetron, Truvada, ritonavir, [place] p.r.n., gabapentin, iron sulfate, Bactrim, and ethambutol. ALLERGIES: None. SOCIAL HISTORY: The patient lives in [facility]. He has a remote history of drug abuse. He denies tobacco abuse and has not used alcohol in 5 months. FAMILY HISTORY: Unremarkable. REVIEW OF SYSTEMS: A complete review of systems adds nothing to the history of present illness. PHYSICAL EXAMINATION: GENERAL: The patient is awake, alert, in no acute distress. VITAL SIGNS: Bl ood pressure is 98/63 with a pulse 75. He is afebrile today, but had a temperature of 39.3 yesterday . His oxygen saturations re 100% on room air. HEENT: Normocephalic and atraumatic. No icterus. N SAM: Trachea is midline. CHEST: Clear to auscultation. CARDIAC: Regular rate and rhythm without murmur. ABDOMEN: Soft, nontender. Bowel sounds are present. EXTREMITIES: No clubbing, cyanosis, or edema. LABORATORY: White blood count is 3.9 with a hemoglobin of 8.6, platelet count is 193. Sodium is 146 up from 134 yesterday. carbon dioxide level is stable but low at 21. AST is 75 down from 149 and al bumin is 1.9. Venous lactate level is 1.4. IMAGING: A chest x-ray is unremarkable. Images were reviewed. A CT scan of the abdomen shows a pos sible mesenteric abscess. ASSESSMENT: 1. Fever: This has not been associated with any localizing symptoms, although patient does have reshma e chronic abdominal pain that may have been a bit worse when he came in, now resolved. A CT scan en ws an area that could represent an abscess, but his abdominal exam is quite benign for this. He has been started on empiric cefepime. 2. Anemia: Patient has a normocytic anemia with a hemoglobin dropping several points to 7.2 compare d to yesterday. This could be from some acute intraabdominal blood loss, but there also is a chronic component. 3. Elevated transaminases: These were elevated on admission, but have promptly come down to the mary r-normal range. RECOMMENDATIONS: 1. Continue empiric antibiotics. 2. Fluids as necessary to maintain blood pressure. 3. Consider repeat CT scan of the abdomen. 4. Follow hemoglobin level and liver function tests. /[id number]/MODL
--- NOTE | 2016-05-01 18:46 | HOSPPROG ---
Hospitalist Progress Note Assessment/Plan: #Septic shock: does not appear at all toxic. -CXR, flu, UA negative. CT abd with questionable abscess? Given recurrent fever , check CT -still on dopamine, good UOP. AM cortisol -Cont Cefepime #MAC infection: cont Ethambutal, Rifubutin, Azithro #Transaminitis: may be due to hypotension. US unremarkable. Repeat CT pending #HIV: cont home meds: followed by Dr. Hurtado at [facility] #Peripheral neuropathy: gabapentin #diet: regular #DVT ppx: ambulating #Disp: warrants inpatient admission with septic shock requiring IV abx, pressors Subjective: some nausea this morning Objective: Vital Signs Temp Pulse Resp BP Pulse Ox 37.7 C 74 19 87/53 L 97 05/01/16 17:00 05/01/16 18:00 05/01/16 18:00 05/01/16 18:00 05/01/16 18:00 Laboratory Results 05/01/16 03:00 05/01/16 03:00 04/30/16 05/01/16 05/02/16 05:59 05:59 05:59 Intake Total 3307 1245 Output Total 2700 900 Balance 607 345 - Physical Exam Constitutional: no apparent distress Eyes: PERRL Ears, Nose, Mouth, Throat: moist mucous membranes, hearing normal Cardiovascular: regular rate and rhythym, no murmur, rub, or gallop Respiratory: no respiratory distress, no rales or rhonchi Gastrointestinal: normoactive bowel sounds, soft, non-tender abdomen, no palpable masses Genitourinary: no bladder fullness Skin: warm, no fluctuance, no induration Musculoskeletal: full muscle strength Neurologic: AAOx3 Psychiatric: interacting appropriately ICD10 Worksheet Patient Problems: Problems Problem Status Diagnosed Febrile illness Acute HIV (human immunodeficiency virus infection) Acute
[2016-05-01] MEDS ORDERED: IOPAMIDOL (ISOVUE-300) 100 ML BTL IV ONE (19:04)
[2016-05-01] MEDS: MELATONIN 3 MG TAB PO SCH (20:28)
--- NOTE | 2016-05-01 21:35 | CT ---
CT Scan of the Abdomen and Pelvis (With Contrast) May 01, 2016 at 2006 Hours History: Abdominal and pelvic abscess follow-up. Comparison: CT dated April 30, 2016. Technique: Axial computed tomographic images of the abdomen and pelvis were obtained with the unevent ful intravenous administration of 90 mL Isovue-300 contrast. Additional oral contrast. Dose reduction techniques were utilized. CT Abdomen Findings: Lung bases: Minimal right lower lobe atelectasis. Small hiatal hernia. Liver: Normal. Biliary system: No obstruction. Spleen: Normal. Pancreas: Normal. Adrenals: Normal. Kidneys: No obstruction or solid masses.. Abdominal aorta: No aneurysm. Oral contrast in the small bowel and partially in the colon. Possible pneumoperitoneum in the left up per quadrant of the abdomen. No small bowel obstruction. In the midabdomen surrounded by bowel and me sentery, there is a thick-walled fluid collection without contrast which appears slightly serpiginous and measures 11.2 x 3.5 cm, consistent with an abscess. There is a smaller abscess between the aorta and superior mesenteric artery and just medial to the pancreatic uncinate process on image 111 of se jolanta 4, measuring [address] Pelvis Findings: A fluid collection noted anterior to the rectosigmoid colon in the midpelvis, abdiaziz suring 7.8 x 2.2 cm on image 256 of series 4, likely representing abscess. However, there is no oral contrast in the distal colon. A second possible abscess fluid collection noted in the upper midpelvis , V-shaped, measuring approximately 4 x 5 cm on image 215 of series 4. Impression: 1. Four abscess fluid collections noted, two in the midabdomen and two in the pelvis which are surrou nded by bowel and vessels and, therefore, are not amenable to CT-guided drainage. 2. Possible pneumoperitoneum left upper quadrant of abdomen, although incomplete opacification of the distal colon with oral contrast limits evaluation. 3. Minimal atelectasis right lower lobe with a small hiatal hernia. 4. No definite hepatic abscesses or urinary tract obstruction. Findings and recommendations discussed with emergency department physician, Dr. Arnaud Roe at 2100 h ours today. Final report concurs with initial preliminary interpretation.
[2016-05-02 03:33] LABS: HEMATOCRIT 27.4 % (40.0-51.0); HEMOGLOBIN 8.8 g/dL (13.7-17.5); MEAN CELL HEMOGLOBIN 27.8 pg (27.9-34.1); MEAN CELL HEMOGLOBIN CONCENTR. 32.1 g/dL (32.4-36.7); MEAN CELL VOLUME 86.7 fL (81.5-99.8); RED BLOOD CELL COUNT 3.16 10^6/uL (4.40-6.38)
[2016-05-02 03:57] LABS: ALANINE AMINOTRANSFERASE 78 IU/L (21-72); ALBUMIN 2.6 g/dL (3.5-5.0); ALKALINE PHOSPHATASE 89 IU/L (38-126); ANION GAP 10 mEq/L (8-16); ASPARTATE AMINOTRANSFERASE 83 IU/L (17-59); BILIRUBIN,TOTAL 0.6 mg/dL (0.1-1.4); CALCIUM 8.5 mg/dL (8.5-10.4); CARBON DIOXIDE 20 mEq/l (22-31); CHLORIDE 105 mEq/L (97-110); CREATININE 0.8 mg/dL (0.7-1.3); GLOMERULAR FILTRATION RATE > 60; GLUCOSE 86 mg/dL (70-100); POTASSIUM 4.1 mEq/L (3.5-5.2); SODIUM 135 mEq/L (134-144); TOTAL PROTEIN 6.5 g/dL (6.3-8.2)
[2016-05-02] MEDS: HYDROCODONE/APAP 5/325 TAB PO PRN ×3 (05:41→18:45)
[2016-05-02] MEDS: CEFEPIME HCL 2 GM in D5W 100 ML IV SCH ×2 (08:43→21:25)
--- NOTE | 2016-05-02 10:15 | PCMIDPN ---
Assessment/Plan: Assessment/Plan: * Fever in patient with AIDS and history of disseminated MAC: CD4 count in September. Continued high-grade fever and CT of abdomen and pelvis shows multifocal abscess formation which is not amenable to percutaneous drainage. This may all be secondary to disseminated MAC but other etiologies including opportunistic process sees are also of consideration. Will obtain surgical consultation as suspect this will require open drainage for diagnostic and therapeutic purposes. Will send AFB blood culture, serum cryptococcal antigen and urine histoplasma antigen. Immune oriental orthodox syndrome a consideration - will check CD4 count and viral load as this would provide additional information regarding this consideration. * Disseminated MAC: Describes having bone marrow biopsy performed in [place] for diagnosis. Continue azithromycin, ethambutol, and rifabutin. * AIDS: Continue Truvada and boosted darunavir. Will check viral load; patient states compliant with therapy. Time spent, greater than 35 minutes, of which half was spent in education plus counseling +coordination of care related to fever, AIDS and disseminated MAC 05/02/16 10:12 05/02/16 10:14 05/02/16 10:17 Subjective: Patient with mild abdominal discomfort. Objective: Vital Signs Temp Pulse Resp BP Pulse Ox 36.8 C 53 L 12 103/57 L 98 05/02/16 04:00 05/02/16 08:00 05/02/16 08:00 05/02/16 08:00 05/02/16 08:00 Laboratory Results 05/02/16 03:25 05/02/16 03:25 05/01/16 05/02/16 05/03/16 05:59 05:59 05:59 Intake Total 3307 2810 Output Total 2700 2500 700 Balance 607 310 -700 Tm 39.4 Cefepime # 3 Truvada/Ritonavir/darunavir Azithromycin/rifabutin/ethambutol CT abdomen/pelvis reviewed with Radiology showing multifocal abscess formation with collections not felt to be amenable to percutaneous drainage - Physical Exam General Appearance: alert, no apparent distress, cachetic EENT: No scleral icterus, No thrush, No conjunctival petechiae Respiratory: lungs clear, No respiratory distress Neck: other (Right-sided IJ triple-lumen catheter in place) Cardiac/Chest: regular rate, rhythm, No systolic murmur Extremities: No inflammation Abdomen: distended (Mild), tender (Mild in epigastrium), No peritoneal signs Male Genitalia: other (No genital ulcerations) Rectal: other (No perirectal ulcerations) Skin: No rash Neuro/Psych: alert, No confused ICD10 Worksheet Patient Problems: Problems Problem Status Diagnosed Febrile illness Acute HIV (human immunodeficiency virus infection) Acute
[2016-05-02] MEDS: AZITHROMYCIN 250 MG TAB PO SCH (11:12)
[2016-05-02] MEDS: GABAPENTIN 400 MG CAP PO SCH ×2 (11:14→21:24)
[2016-05-02] MEDS: FERROUS SULFATE 325 MG TAB PO SCH (11:14)
[2016-05-02] MEDS: DARUNAVIR ETHANOLATE 800 MG TAB PO SCH (11:14)
[2016-05-02] MEDS: RITONAVIR 100 MG TAB PO SCH (11:15)
[2016-05-02] MEDS: EMTRICITABINE/TENOFOVIR 200MG/300MG TAB PO SCH (11:15)
[2016-05-02] MEDS: ETHAMBUTOL HCL 400 MG TAB PO SCH (11:15)
[2016-05-02] MEDS: NS 1,000 ML IV SCH (11:16)
[2016-05-02] MEDS: RIFABUTIN 150 MG CAP PO SCH (11:20)
[2016-05-02] MEDS: SULFAMETHOX/TMP 800/160 MG 1 TAB PO SCH ×2 (11:24→21:24)
[2016-05-02] MEDS: ONDANSETRON 4 MG/2 ML VIAL IVP PRN (12:08)
[2016-05-02] MEDS ORDERED: BUPIVACAINE 0.5% 30 ML SDV ONE (13:27)
[2016-05-02] MEDS ORDERED: HEPARIN 1000 UNIT/1 ML MDV ONE (13:27)
[2016-05-02] MEDS ORDERED: ceFAZolin 1 GM/5 ML SYR ONE (13:27)
--- NOTE | 2016-05-02 15:02 | GCON ---
[f rep st] CONSULTATION REASON FOR CONSULTATION: Asked to see patient for evaluation of intraabdominal abscess on CT scan. HISTORY OF PRESENT ILLNESS: The patient is a 41-year-old male, who has a history of intraabdominal a bscess drainage by Interventional Radiology at [facility] in January 2016, who was doing well unt il approximately 5 days ago when he developed fevers. He does have chronic abdominal pain, which tod ay he reports he is much improved. He had a CT scan which demonstrated 4 fluid collections concernin g for abscess. The patient has a history of HIV. He has never had any abdominal surgeries. PAST MEDICAL HISTORY: HIV, neuropathy, MAC. ALLERGIES: No known drug allergies. MEDICATIONS: Zofran, Bactrim, Mycobutin, Myambutol, Norvir, Truvada, Neurontin, iron, Prezista, Norc o, Zithromax, melatonin, dopamine. PAST SURGICAL HISTORY: No abdominal or pelvic surgeries. REVIEW OF SYSTEMS: Negative 10-point review of systems. PHYSICAL EXAM: GENERAL: Patient is a very pleasant male in no apparent distress, alert. HEAD AND N SAM: Normocephalic, atraumatic. CHEST: CTA bilaterally. HEART: Regular rhythm and rate. ABDOMEN : No scars, nondistended, soft to palpation, mild right mid abdomen tenderness to palpation. Negati ve rebound. EXTREMITIES: No lower extremity edema. LABORATORY STUDIES: Normal white blood cell count, hematocrit 27. Grossly normal comprehensive pane l. RADIOLOGY: Abdominal CT scan: Mesenteric abscess, 4 fluid collections in total concerning for absce ss, possible pneumoperitoneum left upper quadrant versus loop of bowel. IMPRESSION: A 41-year-old male, initially admitted with sepsis, still on pressors, CT scan concernin g for intraabdominal abscess. RECOMMENDATION: The patient was seen and examined by Dr. Francois. Given the patient is still on press ors, we may wait 1 full day before initiating surgery. He has been consented for exploratory laparos copy, likely laparotomy and drainage of abscess. He will be kept n.p.o. Case is on hold for today u ntil further discussion with other specialists. /[id number]/MODL
[2016-05-02] MEDS ORDERED: MIDAZOLAM 2 MG/2 ML VIAL IVP ONE (16:30)
--- NOTE | 2016-05-02 17:00 | HOSPPROG ---
Hospitalist Progress Note Assessment/Plan: 41 yo M with hx of AIDS and disseminated MAC presenting with septic shock in setting of multifocal intraabdominal abscess # septic shock: remains on dopamine and cefepime, likely 2/2 next. Cultures with ngtd. # multifocal intra-abdominal abscess: noted on personal review of CT and not amenable to perc drainage. Etiology unclear, possibly related to disseminated MAC but other etiologies also possible. Will need ex lap and surgical consultation ordered. # disseminated MAC: continue azith, ethambutol, rifabutin. Appreciate ID # AIDS: continued on HAART # transaminitis: likely driven by sepsis # bradycardia: in setting of NE and what appeared to be 2nd degree block on telemetry, resolved off of NE # dispo: IP status, remains critically ill on pressors and IV abx Reviewed care plan with Dr. Kirkpatrick and multidisciplinary care team on rounds. Subjective: no significant overnight events, patient currently feeling better, pain controlled Objective: Vital Signs Temp Pulse Resp BP Pulse Ox 36.8 C 54 L 13 108/69 100 05/02/16 04:00 05/02/16 16:00 05/02/16 16:00 05/02/16 16:00 05/02/16 16:00 Microbiology 05/02/16 11:20 Mycobacterial Smear (JERONIMO) - Final Blood Laboratory Results 05/02/16 03:25 05/02/16 03:25 05/01/16 05/02/16 05/03/16 05:59 05:59 05:59 Intake Total 3307 2810 Output Total 2700 2500 900 Balance 607 310 -900 awake alert chronically ill appearing anicteric op clear rrr no mrg cta b soft mild ttp no cce warm dry well perfused oriented appropriate - Time Spent With Patient Time Spent with Patient: greater than 35 minutes Time Spent with Patient: Greater than 35 minutes spent on this patients care, greater than 50% of time spent counseling, educating, and coordinating care regarding the above mentioned plan. ICD10 Worksheet Patient Problems: Problems Problem Status Diagnosed Febrile illness Acute HIV (human immunodeficiency virus infection) Acute
[2016-05-02] MEDS ORDERED: FAMOTIDINE 20 MG/2 ML SDV IVP ONE (17:03)
--- NOTE | 2016-05-02 17:05 | SOAPPROG ---
SOAP Progress Note Assessment/Plan: Assessment: 41yo male with intrab abscess Plan: surgery scheduled for Monday05/02/16 17:04 Objective: Vital Signs Temp Pulse Resp BP Pulse Ox 36.8 C 54 L 13 108/69 100 05/02/16 04:00 05/02/16 16:00 05/02/16 16:00 05/02/16 16:00 05/02/16 16:00 Microbiology 05/02/16 11:20 Mycobacterial Smear (JERONIMO) - Final Blood Laboratory Results 05/02/16 03:25 05/02/16 03:25 05/01/16 05/02/16 05/03/16 05:59 05:59 05:59 Intake Total 3307 2810 Output Total 2700 2500 900 Balance 607 310 -900 ICD10 Worksheet Patient Problems: Problems Problem Status Diagnosed Febrile illness Acute HIV (human immunodeficiency virus infection) Acute
[2016-05-02] MEDS ORDERED: FAMOTIDINE 20 MG/NACL 50 ML IV ONE (19:00)
--- NOTE | 2016-05-02 19:16 | PDINTPN ---
Senior Consumer Insights Consultant Progress Note Assessment/Plan: Assessment: Fever: Secondary to abdominal abscesses. Will need surgery for drainage. Now scheduled for tomorrow.. Elevated transaminases: Improved yesterday, up a bit today. Anemia: Hematocrit 27, stable HIV: On antiretroviral Rx MAC: On triple therapy Plan: Continue antibiotics per Infectious Disease. Follow laboratory. Await timing of surgery. Subjective: Doing okay. Denies significant abdominal pain. Scheduled for surgery but now put on hold until tomorrow. Objective: Vital Signs Temp Pulse Resp BP Pulse Ox 36.8 C 71 10 L 106/65 100 05/02/16 04:00 05/02/16 18:00 05/02/16 18:00 05/02/16 18:00 05/02/16 18:00 Microbiology 05/02/16 11:20 Mycobacterial Smear (JERONIMO) - Final Blood Laboratory Results 05/02/16 03:25 05/02/16 03:25 05/01/16 05/02/16 05/03/16 05:59 05:59 05:59 Intake Total 3307 2810 1363 Output Total 2700 2500 1700 Balance 607 310 -337 CT abdomen: Consistent with intra-abdominal abscesses. Physical Exam - Physical Exam General Appearance: alert, no apparent distress, thin EENT: other (On room air) Neck: normal inspection Respiratory: lungs clear, decreased breath sounds (At bases) Cardiac/Chest: regular rate, rhythm, bradycardia Abdomen: soft, No normal bowel sounds (Diminished), No non-tender (Mild tenderness) Skin: normal color, warm/dry Lymphatic: no adenopathy Extremities: No pedal edema Neuro/Psych: no motor/sensory deficits, No cognition abnormalities ICD10 Worksheet Patient Problems: Problems Problem Status Diagnosed Febrile illness Acute HIV (human immunodeficiency virus infection) Acute
[2016-05-02] MEDS: MELATONIN 3 MG TAB PO SCH (21:25)
[2016-05-03] MEDS: HYDROCODONE/APAP 5/325 TAB PO PRN ×3 (03:52→21:38)
[2016-05-03 06:21] LABS: % IMMATURE GRANULYOCYTES 0.7 % (0.0-1.1); ABSOLUTE IMMATURE GRANULOCYTES 0.04 10^3/uL (0.00-0.10); ADD DIFF? NO; ADD MORPH? NO; ADD SCAN? NO; ATYPICAL LYMPHOCYTE FLAG 0 (0-99); FRAGMENT RBC FLAG 90 (0-99); HEMATOCRIT 28.5 % (40.0-51.0); HEMOGLOBIN 9.2 g/dL (13.7-17.5); LEFT SHIFT FLG 80 (0-99); LIPEMIA HEMOLYSIS FLAG 80 (0-99); MEAN CELL HEMOGLOBIN 28.1 pg (27.9-34.1); MEAN CELL HEMOGLOBIN CONCENTR. 32.3 g/dL (32.4-36.7); MEAN CELL VOLUME 87.2 fL (81.5-99.8); MEAN PLATELET VOLUME 9.2 fL (8.7-11.7); PLATELET CLUMPS FLAG 0 (0-99); PLATELET COUNT 227 10^3/uL (150-400); RED BLOOD CELL COUNT 3.27 10^6/uL (4.40-6.38)
[2016-05-03 06:39] LABS: MAGNESIUM 1.8 mg/dL (1.6-2.3)
--- NOTE | 2016-05-03 07:10 | GCON ---
[f rep st] CONSULTATION DATE OF CONSULTATION: 05/02/2016 HISTORY OF PRESENT ILLNESS: The patient is a 41-year-old male who is HIV positive but has been somew hat noncompliant with his medications. He was admitted with a febrile illness 3 days ago. He is pre sently on anti-retroviral therapy. He has also been diagnosed with MAC and is on treatment for that. He has some mild belly pain but is not really complaining a lot of pain except in his lower extremit ies where he has neuropathy. He has had no previous abdominal pain. CT scan shows some multiple inter loop abdominal abscesses which are not amenable to IR drainage. PAST MEDICAL HISTORY: Includes: 1. HIV. 2. MAC. 3. Neuropathy. ALLERGIES: None. REVIEW OF SYSTEMS: Reveals he does not smoke. Denies any major cardiopulmonary symptoms, diabetes, asthma, epilepsy or other major medical problems on a full complete review of systems. MEDICATIONS: Include azithromycin, emtricitabine, Darunavir, Pepcid, Norvir, Neurontin, Mycobutin, e thambutol, and some pain medicines. PHYSICAL EXAMINATION: GENERAL: Reveals a cooperative, thin 41-year-old male, who is in no acute dis tress. VITAL SIGNS: He is presently afebrile although apparently had a temperature of 39.5 when he w as admitted. His blood pressure has been running on the low side and he is on pressors at the moment. HEAD AND NECK: Reveals no adenopathy, normal occlusion. Neck is supple, nontender. CHEST: Clear with equal breath sounds. CARDIAC: Exam reveals regular rhythm without murmurs. ABDOMEN: Soft, w ithout organomegaly. He has some mild diffuse abdominal tenderness. Some bowel sounds. No abdomina l scars and no hernias. EXTREMITIES: Benign. Full pulses. IMPRESSION: Multiple intraabdominal abscesses of uncertain etiology in an immunocompromised male wit h human immunodeficiency virus. He has had a previous percutaneous drainage in [facility] 2 cedric hs ago. He has had no etiology for these abscesses. PLAN: Laparoscopy and/or laparotomy for drainage of multiple abscesses. We will let him stabilize o n his pressors and antibiotics overnight. We will plan on surgery tomorrow if he is stable. /[id number]/MODL
[2016-05-03] MEDS: DARUNAVIR ETHANOLATE 800 MG TAB PO SCH (08:19)
[2016-05-03] MEDS: AZITHROMYCIN 250 MG TAB PO SCH (08:19)
[2016-05-03] MEDS: EMTRICITABINE/TENOFOVIR 200MG/300MG TAB PO SCH (08:19)
[2016-05-03] MEDS: ETHAMBUTOL HCL 400 MG TAB PO SCH (08:20)
[2016-05-03] MEDS: GABAPENTIN 400 MG CAP PO SCH ×2 (08:20→21:34)
[2016-05-03] MEDS: RITONAVIR 100 MG TAB PO SCH (08:20)
[2016-05-03] MEDS: FERROUS SULFATE 325 MG TAB PO SCH (08:20)
[2016-05-03] MEDS: RIFABUTIN 150 MG CAP PO SCH (08:21)
[2016-05-03] MEDS: SULFAMETHOX/TMP 800/160 MG 1 TAB PO SCH ×2 (08:21→21:34)
[2016-05-03] MEDS: CEFEPIME HCL 2 GM in D5W 100 ML IV SCH ×2 (08:21→21:17)
--- NOTE | 2016-05-03 14:24 | PCMIDPN ---
Assessment/Plan: Assessment/Plan: * Fever in patient with AIDS and with multifocal intra-abdominal abscesses and history of disseminated MAC: Appreciate Dr. Francois consult. Plans for laparoscopic drainage this afternoon. Will send fluid and peritoneal tissue if possible for anaerobic, AFB, and fungal cultures. Will save tissue if possible for subsequent PCR testing if cultures and histopathology nondiagnostic. AFB blood culture, serum cryptococcal antigen and urine histoplasma antigen pending. Immune yarsani syndrome a consideration - viral load is markedly decreased from last value in our system which was greater than 1 million in September. Continue empiric cefepime although suspect this is unlikely related to primary bacterial etiology. * Disseminated MAC: Describes having bone marrow biopsy performed in [place] for diagnosis. Continue azithromycin, ethambutol, and rifabutin. * AIDS: Continue Truvada and boosted darunavir. Viral load 187. Suggests patient is taking anti-retroviral therapy. 05/03/16 14:20 05/03/16 14:25 Subjective: Patient without specific complaints. Plans for laparoscopic drainage of multifocal abdominal abscesses later today. Objective: Vital Signs Temp Pulse Resp BP Pulse Ox 36.6 C 54 L 17 104/62 100 05/03/16 04:00 05/03/16 08:00 05/03/16 08:00 05/03/16 08:00 05/03/16 08:00 Microbiology 05/02/16 11:20 Mycobacterial Smear (JERONIMO) - Final Blood Laboratory Results 05/03/16 06:00 05/02/16 03:25 05/02/16 05/03/16 05/04/16 05:59 05:59 05:59 Intake Total 2810 3313 Output Total 2500 2850 Balance 310 463 Cefepime # 4 Viral load 187 Urine histoplasma antigen and serum cryptococcal antigen pending AFB blood culture pending Blood cultures x2 no growth CD4 count pending - Physical Exam General Appearance: alert, no apparent distress, cachetic EENT: No scleral icterus Neck: other (Right IJ triple-lumen catheter nontender) Cardiac/Chest: regular rate, rhythm Abdomen: non-tender, No distended ICD10 Worksheet Patient Problems: Problems Problem Status Diagnosed Febrile illness Acute HIV (human immunodeficiency virus infection) Acute
--- NOTE | 2016-05-03 15:07 | HOSPPROG ---
Hospitalist Progress Note Assessment/Plan: 41 yo M with hx of AIDS and disseminated MAC presenting with septic shock in setting of multifocal intraabdominal abscess # septic shock: resolved and off of pressors, likely 2/2 next. Cultures with ngtd. # multifocal intra-abdominal abscess: noted on personal review of CT and not amenable to perc drainage. Etiology unclear, possibly related to disseminated MAC but other etiologies also possible. Plan for surgical exploration and drainage today # disseminated MAC: continue azith, ethambutol, rifabutin. Appreciate ID # AIDS: continued on HAART # transaminitis: likely driven by sepsis # bradycardia: in setting of NE and what appeared to be 2nd degree block on telemetry, resolved off of NE # dispo: IP status, remains critically ill on pressors and IV abx Reviewed care plan with Dr. Kirkpatrick and multidisciplinary care team on rounds. Subjective: no significant overnight events, patient currently feeling better, no pain, plan for surgery today Objective: Vital Signs Temp Pulse Resp BP Pulse Ox 36.6 C 54 L 17 104/62 100 05/03/16 04:00 05/03/16 08:00 05/03/16 08:00 05/03/16 08:00 05/03/16 08:00 Microbiology 05/02/16 11:20 Mycobacterial Smear (JERONIMO) - Final Blood Laboratory Results 05/03/16 06:00 05/02/16 03:25 05/02/16 05/03/16 05/04/16 05:59 05:59 05:59 Intake Total 2810 3313 Output Total 2500 2850 Balance 310 463 awake alert chronically ill appearing anicteric op clear rrr no mrg cta b soft mild ttp no cce warm dry well perfused oriented appropriate ICD10 Worksheet Patient Problems: Problems Problem Status Diagnosed Febrile illness Acute HIV (human immunodeficiency virus infection) Acute
[2016-05-03] MEDS ORDERED: BUPIVACAINE 0.5% 30 ML SDV ONE (17:18)
[2016-05-03] MEDS ORDERED: HEPARIN 1000 UNIT/1 ML MDV ONE (17:18)
[2016-05-03] MEDS ORDERED: ceFAZolin 1 GM/5 ML SYR ONE (17:19)
[2016-05-03] MEDS ORDERED: fentaNYL 100 MCG/2 ML INJ ONE (17:50)
[2016-05-03] MEDS ORDERED: PROPOFOL 200 MG/20 ML VIAL ONE (17:50)
[2016-05-03] MEDS ORDERED: LIDOCAINE 2% 5 ML SDV ONE (17:51)
[2016-05-03] MEDS ORDERED: ROCURONIUM 50 MG/5 ML VIAL ONE (17:51)
[2016-05-03] MEDS ORDERED: VASOPRESSIN 20 UNIT/ML VIAL ONE (18:01)
[2016-05-03] MEDS ORDERED: HYDROmorphONE/DILAUDID 2 MG/ML SYR ONE (18:25)
[2016-05-03] MEDS ORDERED: NALOXONE HCL 0.4 MG/ML INJ IVP PRN (19:21)
[2016-05-03] MEDS: HYDROmorphONE/DILAUDID 1 MG/ML SYR IVP PRN (19:53)
[2016-05-03] MEDS: ONDANSETRON 4 MG/2 ML VIAL IVP PRN (19:56)
[2016-05-03] MEDS: HYDROmorphONE/DILAUDID 6 MG/30 ML PCA IV PRN (19:57)
--- NOTE | 2016-05-03 20:36 | PDINTPN ---
Sanding Machine Tender Progress Note Assessment/Plan: Assessment: Fever: Secondary to abdominal abscesses. Awaiting surgery for drainage. Elevated transaminases: Improved. Anemia: Hematocrit 28, stable HIV: On antiretroviral Rx MAC: On triple therapy Plan: Continue antibiotics per Infectious Disease. Continue supportive care. Follow laboratory. Await surgery, findings, cultures. Subjective: Doing okay, waiting surgery. Denies abdominal pain. Complains of leg pain bilaterally, chronic Objective: Vital Signs Temp Pulse Resp BP Pulse Ox 36.5 C 60 15 144/92 H 99 05/03/16 12:00 05/03/16 20:00 05/03/16 20:00 05/03/16 20:00 05/03/16 20:00 Microbiology 05/03/16 18:46 Mycobacterial Smear (JERONIMO) - Final Peritoneal Fluid - Eswab Mycobacterial Culture - Final 05/03/16 18:40 Mycobacterial Smear (JERONIMO) - Final Peritoneal Fluid - Eswab Mycobacterial Culture - Final 05/02/16 11:20 Mycobacterial Smear (JERONIMO) - Final Blood Laboratory Results 05/03/16 06:00 05/02/16 03:25 05/02/16 05/03/16 05/04/16 05:59 05:59 05:59 Intake Total 2810 3313 Output Total 2500 2850 60 Balance 310 463 -60 Physical Exam - Physical Exam General Appearance: alert, no apparent distress EENT: other (On room air) Neck: normal inspection Respiratory: lungs clear, decreased breath sounds (At bases) Cardiac/Chest: regular rate, rhythm, bradycardia Abdomen: No normal bowel sounds (Decreased bowel sounds, some present, mild tenderness.) Skin: normal color, warm/dry Lymphatic: no adenopathy Extremities: No pedal edema Neuro/Psych: no motor/sensory deficits, No cognition abnormalities ICD10 Worksheet Patient Problems: Problems Problem Status Diagnosed Febrile illness Acute HIV (human immunodeficiency virus infection) Acute
[2016-05-03] MEDS: NS 1,000 ML IV SCH (21:25)
[2016-05-03] MEDS: MELATONIN 3 MG TAB PO SCH (21:33)
--- NOTE | 2016-05-03 22:50 | POSTOPPROG ---
Post Op Note Date of Operation: 05/03/16 Surgeon: Jas Francois Floriculturist: Hortensia Marr Anesthesiologist: Tim Carroll Anesthesia: GET(General Endotracheal) Pre-op Diagnosis: HIV, abdominal abscess Post-op Diagnosis: same Procedure: ex-laparoscopy, laparotomy, adhesiolysis, drainage abdominopelvic abscess Findings: see below Inf/Abcess present in the surg proc area at time of surgery?: Yes Depth: Organ Space EBL: 50-100 Complications: none Drains: Catalino Morton (x2) Specimen(s): peritoneal tissue and abscess material sent for culture and pathology Findings: communicating interlooped abscess c gross purulence, granular appearance of friable bowel, multiple small white "cheesy" deposits on bowel serosa and peritoneum
[2016-05-04 04:44] LABS: HEMATOCRIT 33.9 % (40.0-51.0); HEMOGLOBIN 10.6 g/dL (13.7-17.5); MEAN CELL HEMOGLOBIN 28.2 pg (27.9-34.1); MEAN CELL HEMOGLOBIN CONCENTR. 31.3 g/dL (32.4-36.7); MEAN CELL VOLUME 90.2 fL (81.5-99.8); RED BLOOD CELL COUNT 3.76 10^6/uL (4.40-6.38); RED CELL DISTRIBUTION WIDTH 16.9 % (11.5-15.2)
[2016-05-04 04:59] LABS: ALANINE AMINOTRANSFERASE 76 IU/L (21-72); ALBUMIN 2.8 g/dL (3.5-5.0); ALKALINE PHOSPHATASE 90 IU/L (38-126); ANION GAP 8 mEq/L (8-16); ASPARTATE AMINOTRANSFERASE 63 IU/L (17-59); BILIRUBIN,TOTAL 0.7 mg/dL (0.1-1.4); CALCIUM 8.8 mg/dL (8.5-10.4); CARBON DIOXIDE 23 mEq/l (22-31); CHLORIDE 109 mEq/L (97-110); CREATININE 0.8 mg/dL (0.7-1.3); GLOMERULAR FILTRATION RATE > 60; GLUCOSE 92 mg/dL (70-100); POTASSIUM 4.9 mEq/L (3.5-5.2); SODIUM 140 mEq/L (134-144)
[2016-05-04] MEDS: HYDROCODONE/APAP 5/325 TAB PO PRN ×3 (06:21→18:26)
[2016-05-04] MEDS: CEFEPIME HCL 2 GM in D5W 100 ML IV SCH (08:39)
[2016-05-04] MEDS: RITONAVIR 100 MG TAB PO SCH (09:08)
[2016-05-04] MEDS: FERROUS SULFATE 325 MG TAB PO SCH (09:08)
[2016-05-04] MEDS: GABAPENTIN 400 MG CAP PO SCH ×2 (09:08→20:14)
[2016-05-04] MEDS: AZITHROMYCIN 250 MG TAB PO SCH (09:09)
[2016-05-04] MEDS: EMTRICITABINE/TENOFOVIR 200MG/300MG TAB PO SCH (09:09)
[2016-05-04] MEDS: DARUNAVIR ETHANOLATE 800 MG TAB PO SCH (09:09)
[2016-05-04] MEDS: SULFAMETHOX/TMP 800/160 MG 1 TAB PO SCH ×2 (09:09→20:14)
[2016-05-04] MEDS: ETHAMBUTOL HCL 400 MG TAB PO SCH (09:09)
[2016-05-04] MEDS: RIFABUTIN 150 MG CAP PO SCH (09:34)
--- NOTE | 2016-05-04 10:17 | SOAPPROG ---
SOAP Progress Note Assessment/Plan: Assessment: 41yo male s/p laparotomy, drainage of intraabdominal abscess, culutres/path pending has been drinking some liquids without difficulty, was unaware he was NPO, no flatus yet. Pain controlled, still on dopamine PE awake alert Abdomen midline bandages dry, KARLEE drains with small amount of serosag drainage, soft to palpation. Plan await further bowel function before advancing diet f/u cultures 05/02/16 17:04 05/04/16 10:14 Objective: Vital Signs Temp Pulse Resp BP Pulse Ox 36.7 C 78 17 88/60 L 100 05/04/16 08:00 05/04/16 08:00 05/04/16 08:00 05/04/16 08:00 05/04/16 08:00 Microbiology 05/03/16 18:46 Gram Stain - Final Peritoneal Fluid - Eswab 05/03/16 18:24 Gram Stain - Final Abdomen - Tissue 05/03/16 18:40 Gram Stain - Final Peritoneal Fluid - Eswab 05/03/16 18:46 Mycobacterial Smear (JERONIMO) - Final Peritoneal Fluid - Eswab Mycobacterial Culture - Final 05/03/16 18:40 Mycobacterial Smear (JERONIMO) - Final Peritoneal Fluid - Eswab Mycobacterial Culture - Final 05/02/16 11:20 Mycobacterial Smear (JERONIMO) - Final Blood Laboratory Results 05/04/16 04:35 05/04/16 04:35 05/03/16 05/04/16 05/05/16 05:59 05:59 05:59 Intake Total 3313 982 Output Total 2850 110 Balance 463 872 ICD10 Worksheet Patient Problems: Problems Problem Status Diagnosed Febrile illness Acute HIV (human immunodeficiency virus infection) Acute
--- NOTE | 2016-05-04 10:23 | PCMIDPN ---
Assessment/Plan: # HIV/AIDS, CD4 48 (19%): Continue Truvada and boosted darunavir. Viral load 187 suggests compliance with anti-retroviral therapy --not clear to me why he is on Bactrim twice daily, will discuss # Fever, abdominal abscess: Appreciate surgical assistance with intra op debridement and sample collection. Suspect due to immune reconstitution to dMAC. Cryptococcus antigen negative, histoplasmosis urine antigen pending. Standard Gram stain from OR negative for organisms. AFB smear pending --discontinue cefepime --continue ARV and MAC therap --obtaining records from . Talked to PCP, Payam Hager who will forward records. # dMAC, diagnosed approximately 02/14/2016: patient was on ethambutol and rifabutin alone for approximately 8 weeks initially by accident and approx 2 weeks Azithro was added --continue azithromycin, ethambutol, rifabutin. Rifabutin dose reduced to 150 mg because of interaction with darunavir. Azithromycin dosed 500 or 600 mg okay. --no additional respiratory or contact precautions needed # transaminitis: Slight improvement since admission. Hepatitis serology is negative. Suspect due to dMAC Subjective: Patient has some expected abdominal pain postoperatively. Otherwise minimal complaints Objective: Vital Signs Temp Pulse Resp BP Pulse Ox 36.7 C 78 17 88/60 L 100 05/04/16 08:00 05/04/16 08:00 05/04/16 08:00 05/04/16 08:00 05/04/16 08:00 Microbiology 05/03/16 18:46 Gram Stain - Final Peritoneal Fluid - Eswab 05/03/16 18:24 Gram Stain - Final Abdomen - Tissue 05/03/16 18:40 Gram Stain - Final Peritoneal Fluid - Eswab 05/03/16 18:46 Mycobacterial Smear (JERONIMO) - Final Peritoneal Fluid - Eswab Mycobacterial Culture - Final 05/03/16 18:40 Mycobacterial Smear (JERONIMO) - Final Peritoneal Fluid - Eswab Mycobacterial Culture - Final 05/02/16 11:20 Mycobacterial Smear (JERONIMO) - Final Blood Laboratory Results 05/04/16 04:35 05/04/16 04:35 05/03/16 05/04/16 05/05/16 05:59 05:59 05:59 Intake Total 3313 982 Output Total 2850 110 Balance 463 872 - Physical Exam General Appearance: alert, no apparent distress, thin EENT: pale conjunctiva, No photophobia, No thrush Respiratory: lungs clear Neck: supple Cardiac/Chest: regular rate, rhythm Extremities: No pedal edema Abdomen: non-tender, soft, other (2 KARLEE drains with serosanguineous fluid), No distended Neuro/Psych: alert, normal mood/affect, oriented x 3 - Line/s other Lines: other (Left IJ C/D/I), No drainage, No erythema - Time Spent With Patient Time Spent with Patient: greater than 35 minutes (Review of records, discussion of plan of care with patient and his partner) Time Spent with Patient: Greater than 35 minutes spent on this patients care, greater than 50% of time spent counseling, educating, and coordinating care regarding the above mentioned plan. ICD10 Worksheet Patient Problems: Problems Problem Status Diagnosed Febrile illness Acute HIV (human immunodeficiency virus infection) Acute
--- NOTE | 2016-05-04 11:44 | GOP ---
[f rep st] OPERATIVE REPORT DATE OF OPERATION: 05/03/2016 SURGEON: Jas Francois MD AIR CONDITIONING EQUIPMENT MECHANIC: Hortensia Marr PA-C ANESTHESIOLOGIST: Tim Carroll IV, DO PREOPERATIVE DIAGNOSIS: Intraabdominal abscesses in an HIV positive patient. POSTOPERATIVE DIAGNOSIS: Intraabdominal abscesses in an HIV positive patient. PROCEDURE PERFORMED: Laparoscopy, exploratory laparotomy, lysis of adhesions, and drainage of abdomi nal and pelvic abscesses. FINDINGS: The patient was found to have diffuse inflammatory adhesions throughout the abdomen. He h ad a large midabdominal abscess extending down into the pelvis. All the areas seemed to communicate with each other. In terms of the abscess, there was no bowel perforation or source of an abscess. There are multiple granulomas around the peritoneal cavity. DESCRIPTION OF PROCEDURE: The patient was taken to the operating room where he received satisfactory general endotracheal anesthesia by Dr. Carroll. He was placed in supine position, prepped and draped in the usual sterile fashion. A short periumbilical incision was made and carried down through the l inea alba. The peritoneum was opened. The free space was encountered. A 5 mm trocar was introduced and pneumoperitoneum was established. Laparoscope was introduced. However, it was apparent that he had diffuse, difficult adhesions with no real free space to work and laparoscopy was discontinued. A midline abdominal incision was made and carried through the linea alba and gradually enlarged. It was necessary for the dissection. Adhesions were carefully freed up wherever possible until the palp able firmness in the midabdomen could be identified and entered. We then released a 350 cc abscess c avity. The fluid was sent for culture. Multiple peritoneal biopsies were taken and sent for culture and histology. The abscess entrance site was carefully enlarged until it could be totally explored, completely evacuated. It had fingers extending down to the pelvis. All these areas were freed up a nd drained with care taken to avoid any injury to the bowel. Once we were sure that we had completed our drainage, two 15-Sinhala KARLEE drains were brought out through separate stab incisions in the right lower quadrant, one was placed cephalad, one was placed inferiorly into the abdominal abscess cavity. They were secured at the skin with nylon sutures. The wound was copiously irrigated and then close d using running #1 PDS suture for the linea alba. The skin was closed with skin lion over a 1/4-i [facility] drain. The wound was infiltrated with 0.5% Marcaine. There were no complications. He w as taken to the recovery room in good condition. Copy requested to: Gordo Hager NP /[id number]/MODL
[2016-05-04] MEDS: HYDROmorphONE/DILAUDID 6 MG/30 ML PCA IV PRN (13:43)
[2016-05-04 14:21] LABS: % CD3 (T CELLS) 72 % (58-86); % CD4 (HELPER CELLS) 19 % (32-64); % CD8 (SUPPRESSOR CELLS) 50 % (13-40); CD4 (HELPER CELLS) 48 cells/mcL (365-1437); CD8 (SUPPRESSOR CELLS) 125 cells/mcL (145-846); H/S RATIO 0.4 (>=0.9); LYMPHOCYTES 0.25 thou/mcL (0.82-2.84)
[2016-05-04] MEDS: NS 1,000 ML IV SCH (15:22)
--- NOTE | 2016-05-04 16:10 | HOSPPROG ---
Hospitalist Progress Note Assessment/Plan: 41 yo M with hx of AIDS and disseminated MAC presenting with septic shock in setting of multifocal intraabdominal abscess # septic shock: remains on dopamine but improved hemodynamically, 2/2 next. # multifocal intra-abdominal abscess: noted on personal review of CT and not amenable to perc drainage s/p surgical exploration and drainage. Etiology unclear with cultures and path still pending, possibly related to disseminated MAC but other etiologies also possible. # disseminated MAC: continue azith, ethambutol, rifabutin. Appreciate ID # AIDS: continued on HAART # transaminitis: likely driven by sepsis # bradycardia: in setting of NE and what appeared to be 2nd degree block on telemetry, resolved off of NE # dispo: IP status, high risk with multiple active issues and on pressor support Reviewed care plan with Dr. Kirkpatrick and multidisciplinary care team on rounds. Subjective: no significant overnight events, had surgery yesterday, somnolent Objective: Vital Signs Temp Pulse Resp BP Pulse Ox 36.6 C 74 13 88/59 L 100 05/04/16 12:00 05/04/16 16:00 05/04/16 16:00 05/04/16 16:00 05/04/16 16:00 Microbiology 05/03/16 18:40 Gram Stain - Final Peritoneal Fluid - Eswab 05/03/16 18:24 Gram Stain - Final Abdomen - Tissue 05/03/16 18:46 Gram Stain - Final Peritoneal Fluid - Eswab 05/03/16 18:46 Mycobacterial Smear (JERONIMO) - Final Peritoneal Fluid - Eswab Mycobacterial Culture - Final 05/03/16 18:40 Mycobacterial Smear (JERONIMO) - Final Peritoneal Fluid - Eswab Mycobacterial Culture - Final 05/02/16 11:20 Mycobacterial Smear (JERONIMO) - Final Blood Laboratory Results 05/04/16 04:35 05/04/16 04:35 05/03/16 05/04/16 05/05/16 05:59 05:59 05:59 Intake Total 3313 982 Output Total 2850 110 Balance 463 872 awake alert chronically ill appearing anicteric op clear rrr no mrg cta b soft mild ttp no cce warm dry well perfused oriented appropriate ICD10 Worksheet Patient Problems: Problems Problem Status Diagnosed Febrile illness Acute HIV (human immunodeficiency virus infection) Acute
--- NOTE | 2016-05-04 18:15 | PDINTPN ---
Mixing Operator Progress Note Assessment/Plan: Assessment: Fever: Secondary to abdominal abscesses. Status post laparotomy and drainage. Clinically doing well Elevated transaminases: Improved. Anemia: Hematocrit 33, stable HIV: On antiretroviral Rx MAC: On triple therapy Plan: Continue antibiotics per Infectious Disease. Continue supportive care in ICU for now. Pain control as needed. NPO status for now. Follow laboratory. Await surgical cultures. Subjective: Doing well postop. Denies significant abdominal pain. Objective: Vital Signs Temp Pulse Resp BP Pulse Ox 36.6 C 74 13 88/59 L 100 05/04/16 12:00 05/04/16 16:00 05/04/16 16:00 05/04/16 16:00 05/04/16 16:00 Microbiology 05/03/16 18:24 Mycobacterial Smear (JERONIMO) - Final Abdomen - Tissue 05/03/16 18:40 Gram Stain - Final Peritoneal Fluid - Eswab 05/03/16 18:24 Gram Stain - Final Abdomen - Tissue 05/03/16 18:46 Gram Stain - Final Peritoneal Fluid - Eswab 05/03/16 18:46 Mycobacterial Smear (JERONIMO) - Final Peritoneal Fluid - Eswab Mycobacterial Culture - Final 05/03/16 18:40 Mycobacterial Smear (JERONIMO) - Final Peritoneal Fluid - Eswab Mycobacterial Culture - Final 05/02/16 11:20 Mycobacterial Smear (JERONIMO) - Final Blood Laboratory Results 05/04/16 04:35 05/04/16 04:35 05/03/16 05/04/16 05/05/16 05:59 05:59 05:59 Intake Total 3313 982 Output Total 2850 110 200 Balance 463 872 -200 Physical Exam - Physical Exam General Appearance: alert, no apparent distress EENT: other (On room air) Neck: normal inspection Respiratory: lungs clear, decreased breath sounds (At bases) Cardiac/Chest: regular rate, rhythm Abdomen: No normal bowel sounds, No non-tender, No soft Male Genitalia: other (Using urinal) Skin: normal color, warm/dry Extremities: No pedal edema Neuro/Psych: no motor/sensory deficits, No cognition abnormalities ICD10 Worksheet Patient Problems: Problems Problem Status Diagnosed Febrile illness Acute HIV (human immunodeficiency virus infection) Acute
[2016-05-04] MEDS: MELATONIN 3 MG TAB PO SCH (20:14)
[2016-05-04] MEDS: ONDANSETRON 4 MG/2 ML VIAL IVP PRN (22:10)
[2016-05-05] MEDS: HYDROCODONE/APAP 5/325 TAB PO PRN ×3 (04:18→20:21)
[2016-05-05 04:36] LABS: % IMMATURE GRANULYOCYTES 1.3 % (0.0-1.1); ABSOLUTE IMMATURE GRANULOCYTES 0.09 10^3/uL (0.00-0.10); ADD DIFF? NO; ADD MORPH? NO; ADD SCAN? NO; ATYPICAL LYMPHOCYTE FLAG 0 (0-99); FRAGMENT RBC FLAG 0 (0-99); HEMATOCRIT 27.6 % (40.0-51.0); HEMOGLOBIN 8.7 g/dL (13.7-17.5); LEFT SHIFT FLG 90 (0-99); LIPEMIA HEMOLYSIS FLAG 80 (0-99); MEAN CELL HEMOGLOBIN 28.4 pg (27.9-34.1); MEAN CELL HEMOGLOBIN CONCENTR. 31.5 g/dL (32.4-36.7); MEAN CELL VOLUME 90.2 fL (81.5-99.8); PLATELET CLUMPS FLAG 0 (0-99); PLATELET COUNT 182 10^3/uL (150-400); RED BLOOD CELL COUNT 3.06 10^6/uL (4.40-6.38); RED CELL DISTRIBUTION WIDTH 16.8 % (11.5-15.2)
[2016-05-05 05:04] LABS: ALANINE AMINOTRANSFERASE 64 IU/L (21-72); ALBUMIN 2.5 g/dL (3.5-5.0); ALKALINE PHOSPHATASE 77 IU/L (38-126); ANION GAP 8 mEq/L (8-16); ASPARTATE AMINOTRANSFERASE 41 IU/L (17-59); BILIRUBIN,TOTAL 1.1 mg/dL (0.1-1.4); CALCIUM 8.8 mg/dL (8.5-10.4); CARBON DIOXIDE 19 mEq/l (22-31); CHLORIDE 110 mEq/L (97-110); CREATININE 1.2 mg/dL (0.7-1.3); GLOMERULAR FILTRATION RATE > 60; GLUCOSE 71 mg/dL (70-100); POTASSIUM 4.6 mEq/L (3.5-5.2); SODIUM 137 mEq/L (134-144); TOTAL PROTEIN 6.3 g/dL (6.3-8.2)
[2016-05-05] MEDS: ONDANSETRON 4 MG/2 ML VIAL IVP PRN ×2 (05:04→20:18)
--- NOTE | 2016-05-05 09:07 | PCMIDPN ---
Assessment/Plan: # HIV/AIDS, CD4 48 (19%): Continue Truvada and boosted darunavir. Viral load 187 suggests compliance with anti-retroviral therapy --decrease the dose of Bactrim to once daily --positive reinforcement for declining VL # Fever, abdominal abscess: Appreciate surgical assistance with intra op debridement and sample collection. Suspect abdominal manifestations are IRIS to dMAC. Cryptococcus antigen negative, histoplasmosis urine antigen neg. Standard Gram stain from OR negative for organisms. AFB smear neg. Cultures remain negative to date and patient is afebrile since 05/01. 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 Rifabutin dose reduced to 150 mg because of interaction with darunavir. Azithromycin dosed 500 or 600 mg okay. # transaminitis: Resolved. Suspect due to dMAC Subjective: No Flatus yet, awaiting return of bowel function to advance diet Long discussion regarding issues with care at [facility]. When spoke with primary care at [facility] provider felt patient could be better cared for in a clinic closer to his home. At this point patient is not convinced. Objective: Vital Signs Temp Pulse Resp BP Pulse Ox 36.4 C 54 L 12 90/50 L 99 05/05/16 04:00 05/05/16 06:00 05/05/16 06:00 05/05/16 06:00 05/05/16 06:00 Microbiology 05/03/16 18:24 Mycobacterial Smear (JERONIMO) - Final Abdomen - Tissue 05/03/16 18:40 Gram Stain - Final Peritoneal Fluid - Eswab 05/03/16 18:24 Gram Stain - Final Abdomen - Tissue 05/03/16 18:46 Gram Stain - Final Peritoneal Fluid - Eswab Laboratory Results 05/05/16 04:20 05/05/16 04:20 05/04/16 05/05/16 05/06/16 05:59 05:59 05:59 Intake Total 982 2558 Output Total 110 680 Balance 872 1878 - Physical Exam General Appearance: alert, no apparent distress, thin, non-toxic Respiratory: lungs clear Cardiac/Chest: bradycardia Extremities: other (Obvious muscle wasting), No pedal edema Abdomen: soft, distended (Slightly), other (Decreased bowel sounds, [address] with serosanguineous drainage, 110 cc out/24 hours) Male Genitalia: No emery Skin: pallor, No rash Neuro/Psych: alert, normal mood/affect, oriented x 3 - Line/s other Lines: other (Right IJ TLC), No drainage, No erythema - Time Spent With Patient Time Spent with Patient: greater than 25 minutes Time Spent with Patient: Greater than 25 minutes spent on this patients care, greater than 50% of time spent counseling, educating, and coordinating care regarding the above mentioned plan. ICD10 Worksheet Patient Problems: Problems Problem Status Diagnosed Febrile illness Acute HIV (human immunodeficiency virus infection) Acute
[2016-05-05] MEDS: ETHAMBUTOL HCL 400 MG TAB PO SCH (09:12)
[2016-05-05] MEDS: RITONAVIR 100 MG TAB PO SCH (09:13)
[2016-05-05] MEDS: FERROUS SULFATE 325 MG TAB PO SCH (09:13)
[2016-05-05] MEDS: SULFAMETHOX/TMP 800/160 MG 1 TAB PO SCH (09:13)
[2016-05-05] MEDS: EMTRICITABINE/TENOFOVIR 200MG/300MG TAB PO SCH (09:13)
[2016-05-05] MEDS: AZITHROMYCIN 250 MG TAB PO SCH (09:13)
[2016-05-05] MEDS: DARUNAVIR ETHANOLATE 800 MG TAB PO SCH (09:13)
[2016-05-05] MEDS: HYDROmorphONE/DILAUDID 1 MG/ML SYR IVP PRN ×2 (09:13→15:03)
[2016-05-05] MEDS: GABAPENTIN 400 MG CAP PO SCH ×2 (09:13→20:21)
[2016-05-05] MEDS: RIFABUTIN 150 MG CAP PO SCH (09:46)
[2016-05-05 10:46] LABS: HEMATOCRIT 31.3 % (40.0-51.0); HEMOGLOBIN 10.6 g/dL (13.7-17.5)
[2016-05-05] MEDS ORDERED: ALBUMIN 5% 500 ML IV ONE (11:19)
[2016-05-05] MEDS ORDERED: NS 1,000 ML IV ONE (11:20)
--- NOTE | 2016-05-05 15:43 | PDINTPN ---
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 Status post laparotomy and drainage. Clinically doing well . Elevated transaminases: Improved. Anemia: Hematocrit 31, stable HIV: On antiretroviral Rx MAC: On triple therapy Nutrition: NPO for now pending return of bowel function. Plan: Continue antibiotics per Infectious Disease. Continue supportive care in ICU for now. Pain control as needed. NPO status Until passing gas. Follow laboratory. Await surgical cultures. Subjective: Doing well postoperatively, wants to eat. Has some abdominal pain but not excessive. Objective: Vital Signs Temp Pulse Resp BP Pulse Ox 36.4 C 54 L 12 90/50 L 99 05/05/16 04:00 05/05/16 06:00 05/05/16 06:00 05/05/16 06:00 05/05/16 06:00 Microbiology 05/03/16 18:46 Gram Stain - Final Peritoneal Fluid - Eswab 05/03/16 18:24 Gram Stain - Final Abdomen - Tissue 05/03/16 18:40 Gram Stain - Final Peritoneal Fluid - Eswab 05/03/16 18:24 Mycobacterial Smear (JERONIMO) - Final Abdomen - Tissue Laboratory Results 05/05/16 10:30 05/05/16 04:20 05/04/16 05/05/16 05/06/16 05:59 05:59 05:59 Intake Total 982 2558 Output Total 110 680 Balance 872 1878 Physical Exam - Physical Exam General Appearance: alert, no apparent distress, thin EENT: other ( On room air) Neck: normal inspection Respiratory: lungs clear ( anteriorly), decreased breath sounds ( at the bases) , No rales, No rhonchi Cardiac/Chest: bradycardia ( sinus) Abdomen: No normal bowel sounds ( postop abdomen, tender, somewhat firm, quiet.) , No non-tender, No soft Male Genitalia: other ( no Castillo catheter, using urinal.) Skin: normal color, warm/dry Extremities: No pedal edema Neuro/Psych: no motor/sensory deficits, No cognition abnormalities ICD10 Worksheet Patient Problems: Problems Problem Status Diagnosed Febrile illness Acute HIV (human immunodeficiency virus infection) Acute
--- NOTE | 2016-05-05 15:56 | HOSPPROG ---
Hospitalist Progress Note Assessment/Plan: 41 yo M with hx of AIDS and disseminated MAC presenting with septic shock in setting of multifocal intraabdominal abscess # septic shock: improved now hemodynamically, 2/2 next. # multifocal intra-abdominal abscess: noted on personal review of CT and not amenable to perc drainage s/p surgical exploration and drainage. Etiology unclear with cultures and path still pending, possibly related to disseminated MAC, so far cultures otherwise negative. ID/surg following # post op ileus: with no return of bowel function so far, patient very frustrated and wants to eat, encouraged ambulation, decreased use of pain meds # disseminated MAC: continue azith, ethambutol, rifabutin. Appreciate ID # AIDS: continued on HAART # transaminitis: likely driven by sepsis # bradycardia: in setting of NE and what appeared to be 2nd degree block on telemetry, resolved off of NE # dispo: IP status, high risk with multiple active issues and on IV opiates Reviewed care plan with Dr. Kirkpatrick and multidisciplinary care team on rounds. Subjective: no significant overnight events, no gas passing Objective: Vital Signs Temp Pulse Resp BP Pulse Ox 36.4 C 54 L 12 90/50 L 99 05/05/16 04:00 05/05/16 06:00 05/05/16 06:00 05/05/16 06:00 05/05/16 06:00 Microbiology 05/03/16 18:46 Gram Stain - Final Peritoneal Fluid - Eswab 05/03/16 18:24 Gram Stain - Final Abdomen - Tissue 05/03/16 18:40 Gram Stain - Final Peritoneal Fluid - Eswab 05/03/16 18:24 Mycobacterial Smear (JERONIMO) - Final Abdomen - Tissue Laboratory Results 05/05/16 10:30 05/05/16 04:20 05/04/16 05/05/16 05/06/16 05:59 05:59 05:59 Intake Total 982 2558 Output Total 110 680 Balance 872 1878 awake alert chronically ill appearing anicteric op clear rrr no mrg cta b soft mild ttp dec bs no cce warm dry well perfused oriented appropriate ICD10 Worksheet Patient Problems: Problems Problem Status Diagnosed Febrile illness Acute HIV (human immunodeficiency virus infection) Acute
[2016-05-05] MEDS: HYDROmorphONE/DILAUDID 6 MG/30 ML PCA IV PRN (16:28)
[2016-05-05] MEDS: MELATONIN 3 MG TAB PO SCH (20:21)
[2016-05-06] MEDS: ONDANSETRON 4 MG/2 ML VIAL IVP PRN ×2 (02:57→08:18)
[2016-05-06] MEDS: HYDROCODONE/APAP 5/325 TAB PO PRN ×4 (02:57→23:09)
[2016-05-06] MEDS: AZITHROMYCIN 250 MG TAB PO SCH (09:08)
[2016-05-06] MEDS: SULFAMETHOX/TMP 800/160 MG 1 TAB PO SCH (09:09)
[2016-05-06] MEDS: GABAPENTIN 400 MG CAP PO SCH ×2 (09:09→22:08)
[2016-05-06] MEDS: EMTRICITABINE/TENOFOVIR 200MG/300MG TAB PO SCH (09:09)
[2016-05-06] MEDS: DARUNAVIR ETHANOLATE 800 MG TAB PO SCH (09:09)
[2016-05-06] MEDS: RITONAVIR 100 MG TAB PO SCH (09:09)
[2016-05-06] MEDS: ETHAMBUTOL HCL 400 MG TAB PO SCH (09:09)
[2016-05-06] MEDS: RIFABUTIN 150 MG CAP PO SCH (09:09)
[2016-05-06] MEDS: FERROUS SULFATE 325 MG TAB PO SCH (09:12)
[2016-05-06] MEDS: HYDROmorphONE/DILAUDID 6 MG/30 ML PCA IV PRN (09:42)
--- NOTE | 2016-05-06 10:56 | PCMIDPN ---
Assessment/Plan: # HIV/AIDS, CD4 48 (19%): Viral load 187 suggests compliance with anti- retroviral therapy --Continue Truvada and boosted darunavir. --ppx with Bactrim once daily # Fever, abdominal abscess with path showing granulomas and rare AFB. Suspect IRIS to MAC. Supportive of iris: Virologic response, low initial CD4. Minimal improvement in CD4 count less suggestive of IRIS. Also have to consider progressive disease to MAC due to accidental 2 drug therapy, now on 3 drug therapy. --continue ARV and MAC therapy --will start steroids to see if abdominal pain improves. Plan Pred at 1 mg/kg/ day ( 60 mg) with rapid taper over a 10 to 14 day period. Reviewed side effects of short term prednisone with patient : mood swings, high glucose, difficulty sleeping, increased appetite, swelling # dMAC, diagnosed 01/2016: patient was on ethambutol and rifabutin alone for approximately 8 weeks initially by accident and approx 2 weeks ago Azithro was added. Organism is aminoglycoside and fluoroquinolone resistant. See susceptibility panel in osiris --continue azithromycin, ethambutol, rifabutin. Rifabutin 150 mg because of interaction with darunavir. Azithromycin dosed 500 or 600 mg okay. --continue to monitor repeat cx from OR, and blood AFB cx #anemia, stable: Multifactorial dMAC and AIDS Subjective: Continued abdominal pain. No BM as of yet, advanced to clear liquids Objective: Vital Signs Temp Pulse Resp BP Pulse Ox 36.7 C 95 16 133/99 H 100 05/06/16 08:00 05/06/16 10:00 05/06/16 10:00 05/06/16 10:00 05/06/16 10:00 Microbiology 05/03/16 18:46 Gram Stain - Final Peritoneal Fluid - Eswab 05/03/16 18:40 Gram Stain - Final Peritoneal Fluid - Eswab 05/03/16 18:24 Gram Stain - Final Abdomen - Tissue Laboratory Results 05/05/16 10:30 05/05/16 04:20 05/05/16 05/06/16 05/07/16 05:59 05:59 05:59 Intake Total 2558 3200 Output Total 680 1630 Balance 1878 1570 T-max 37.4 degrees General Appearance: alert, no apparent distress, thin, non-toxic Respiratory: lungs clear Cardiac/Chest: bradycardia Extremities: other (Obvious muscle wasting), No pedal edema Abdomen: soft, distended (Slightly), other (Decreased bowel sounds, [address] with serosanguineous drainage, 110 cc out/24 hours) Male Genitalia: No emery Skin: pallor, No rash Neuro/Psych: alert, normal mood/affect, oriented x 3 Right IJ TLC: No drainage, No erythema Time Spent with Patient: Greater than 25 minutes spent on this patients care, greater than 50% of time spent counseling, educating, and coordinating care regarding the above mentioned plan. ICD10 Worksheet Patient Problems: Problems Problem Status Diagnosed Febrile illness Acute HIV (human immunodeficiency virus infection) Acute
--- NOTE | 2016-05-06 13:17 | SOAPPROG ---
SOAP Progress Note Assessment/Plan: Assessment: 41yo male s/p laparotomy, drainage of intraabdominal abscess, HIV. has been drinking some liquids without difficulty, some flatus. Pain controlled PE awake alert Abdomen midline incision dry, KARLEE drains with small amount of serosag drainage, soft to palpation. Plan on clears now, started today if tolerates clears will advance further will continue to monitor KARLEE output, close to removal amount 05/02/16 17:04 05/04/16 10:14 05/06/16 13:15 Objective: Vital Signs Temp Pulse Resp BP Pulse Ox 36.8 C 92 18 119/86 H 94 05/06/16 11:23 05/06/16 11:23 05/06/16 11:23 05/06/16 11:23 05/06/16 11:23 Microbiology 05/03/16 18:40 Gram Stain - Final Peritoneal Fluid - Eswab 05/03/16 18:46 Gram Stain - Final Peritoneal Fluid - Eswab 05/03/16 18:24 Gram Stain - Final Abdomen - Tissue Laboratory Results 05/05/16 10:30 05/05/16 04:20 05/05/16 05/06/16 05/07/16 05:59 05:59 05:59 Intake Total 2558 3200 Output Total 680 1630 350 Balance 1878 1570 -350 ICD10 Worksheet Patient Problems: Problems Problem Status Diagnosed Febrile illness Acute HIV (human immunodeficiency virus infection) Acute
[2016-05-06] MEDS: predniSONE 20 MG TAB PO SCH (13:18)
[2016-05-06] MEDS: NS 1,000 ML IV SCH ×2 (15:02→23:09)
--- NOTE | 2016-05-06 16:20 | HOSPPROG ---
Hospitalist Progress Note Assessment/Plan: * Fever/hypotension (Sepsis vs. 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 Objective: Vital Signs Temp Pulse Resp BP Pulse Ox 36.9 C 99 16 130/73 H 97 05/06/16 13:54 05/06/16 13:54 05/06/16 13:54 05/06/16 13:54 05/06/16 13:54 Microbiology 05/03/16 18:46 Gram Stain - Final Peritoneal Fluid - Eswab 05/03/16 18:24 Gram Stain - Final Abdomen - Tissue 05/03/16 18:40 Gram Stain - Final Peritoneal Fluid - Eswab Laboratory Results 05/05/16 10:30 05/05/16 04:20 05/05/16 05/06/16 05/07/16 05:59 05:59 05:59 Intake Total 2558 3200 Output Total 680 1630 850 Balance 1878 1570 -850 d/w Dr. Alberto - complicated regarding source of problem, likely body reaction to MAC with immune system coming back - Physical Exam Constitutional: no apparent distress, appears nourished, not in pain Cardiovascular: regular rate and rhythym, no murmur, rub, or gallop Respiratory: no respiratory distress, no rales or rhonchi, clear to auscultation Gastrointestinal: normoactive bowel sounds, soft, non-tender abdomen, no palpable masses Skin: no rashes or abrasions, no fluctuance, no induration Neurologic: AAOx3, sensation intact bilaterally Psychiatric: interacting appropriately, not anxious, not encephalopathic, thought process linear ICD10 Worksheet Patient Problems: Problems Problem Status Diagnosed Febrile illness Acute HIV (human immunodeficiency virus infection) Acute
--- NOTE | 2016-05-06 20:38 | SOAPPROG ---
SOAP Progress Note Assessment/Plan: Assessment: Fever: Secondary to abdominal abscesses. Status post laparotomy and drainage. MAC clearly present in the abdominal material. Clinically doing well . Elevated transaminases: Improved. Anemia: Hematocrit 31, stable HIV: On antiretroviral Rx MAC: On triple therapy. Present in abdomen. Nutrition: NPO for now pending return of bowel function. Plan: Antibiotics per Infectious Disease. Continue supportive care. Agree with steroid trial for possible IRIS.. Follow laboratory. Await surgical cultures. Subjective: Feels better. Abdominal pain persists. Taking more clears. No stool or gas yet. Objective: Vital Signs Temp Pulse Resp BP Pulse Ox 36.5 C 79 14 103/75 97 05/06/16 20:00 05/06/16 20:00 05/06/16 20:00 05/06/16 20:00 05/06/16 20:00 Microbiology 05/03/16 18:46 Gram Stain - Final Peritoneal Fluid - Eswab 05/03/16 18:24 Gram Stain - Final Abdomen - Tissue 05/03/16 18:40 Gram Stain - Final Peritoneal Fluid - Eswab Laboratory Results 05/05/16 10:30 05/05/16 04:20 05/05/16 05/06/16 05/07/16 05:59 05:59 05:59 Intake Total 2558 3200 Output Total 680 1630 1046 Balance 1878 1570 -1046 Abdominal material consistent with MAC with granulomatous changes and positive AFB organisms. Physical Exam - Physical Exam General Appearance: alert, no apparent distress EENT: other (On room air) Neck: normal inspection Respiratory: lungs clear, decreased breath sounds (At bases) Cardiac/Chest: regular rate, rhythm Abdomen: other (Postoperative, bowel sounds improving.) Skin: normal color, warm/dry Extremities: No pedal edema Neuro/Psych: no motor/sensory deficits, No cognition abnormalities ICD10 Worksheet Patient Problems: Problems Problem Status Diagnosed Febrile illness Acute HIV (human immunodeficiency virus infection) Acute
[2016-05-06] MEDS: MELATONIN 3 MG TAB PO SCH (23:09)
[2016-05-07] MEDS: HYDROmorphONE/DILAUDID 6 MG/30 ML PCA IV PRN (03:07)
[2016-05-07] MEDS: HYDROCODONE/APAP 5/325 TAB PO PRN ×4 (05:36→23:18)
[2016-05-07] MEDS: NS 1,000 ML IV SCH (07:04)
[2016-05-07] MEDS: AZITHROMYCIN 250 MG TAB PO SCH (09:43)
[2016-05-07] MEDS: DARUNAVIR ETHANOLATE 800 MG TAB PO SCH (09:43)
[2016-05-07] MEDS: FERROUS SULFATE 325 MG TAB PO SCH (09:43)
[2016-05-07] MEDS: ETHAMBUTOL HCL 400 MG TAB PO SCH (09:43)
[2016-05-07] MEDS: RIFABUTIN 150 MG CAP PO SCH (09:44)
[2016-05-07] MEDS: RITONAVIR 100 MG TAB PO SCH (09:44)
[2016-05-07] MEDS: EMTRICITABINE/TENOFOVIR 200MG/300MG TAB PO SCH (09:44)
[2016-05-07] MEDS: predniSONE 20 MG TAB PO SCH (09:44)
[2016-05-07] MEDS: GABAPENTIN 400 MG CAP PO SCH ×2 (09:44→21:04)
[2016-05-07] MEDS: SULFAMETHOX/TMP 800/160 MG 1 TAB PO SCH (09:44)
--- NOTE | 2016-05-07 09:46 | SOAPPROG ---
SOAP Progress Note Assessment/Plan: Assessment: 41yo M HIV+ s/p laparotomy with drainage of intraabdominal abscess 2 /2 disseminated MAC Tolerating clear liquids without worsening nausea, vomiting or distention Advance to light diet Pain is controlled with AUDIOLOGY DIRECTOR and PO. Transition to PO Encouraged ambulation, PT Appreciate hospitalists, ID Seen with Dr. Francois S: Hungry. Anxious to begin eating. Pain is controlled O: Sitting upright in bed, comfortable, NAD No increased work of breathing Few bowel sounds, soft but abdomen still quite distended. Dressings intact. KARLEE serosanguineous Objective: Vital Signs Temp Pulse Resp BP Pulse Ox 36.3 C 64 16 109/82 H 97 05/07/16 06:00 05/07/16 08:00 05/07/16 08:00 05/07/16 08:00 05/07/16 08:00 Microbiology 05/01/16 15:10 Blood Culture - Final Blood 05/01/16 15:10 Blood Culture - Final Blood 05/03/16 18:46 Gram Stain - Final Peritoneal Fluid - Eswab 05/03/16 18:24 Gram Stain - Final Abdomen - Tissue 05/03/16 18:40 Gram Stain - Final Peritoneal Fluid - Eswab Laboratory Results 05/05/16 10:30 05/05/16 04:20 05/06/16 05/07/16 05/08/16 05:59 05:59 05:59 Intake Total 3200 400 Output Total 1630 2166 Balance 1570 -1766 ICD10 Worksheet Patient Problems: Problems Problem Status Diagnosed Febrile illness Acute HIV (human immunodeficiency virus infection) Acute
--- NOTE | 2016-05-07 12:30 | PCMIDPN ---
Assessment/Plan: Assessment/Plan: 1.HIV/AIDS: -CD4 48 (19%): Viral load 187 on HAART --Continue Truvada and boosted darunavir. --ppx with Bactrim once daily 2. Fever, abdominal abscess with path showing granulomas and rare AFB.: - Possible IRIS to MAC vs progressive disease to MAC due to accidental 2 drug therapy (managed by [facility]), now on 3 drug therapy. --continue ARV and MAC therapy --Started on Pred at 1 mg/kg/day ( 60 mg) yesterday with plan for rapid taper over a 10 to 14 day period. 3. Disseminated MAC: -diagnosed 01/2016: patient was on ethambutol and rifabutin alone for approximately 8 weeks initially by accident (managed by [facility]) and approx 2 weeks ago Azithro was added. Organism is aminoglycoside and fluoroquinolone resistant. See susceptibility panel in osiris --continue azithromycin, ethambutol, rifabutin. Rifabutin 150 mg because of interaction with darunavir. Azithromycin dosed 500 or 600 mg okay. --continue to monitor repeat cx from OR, and blood AFB cx 4. anemia: -stable: Multifactorial dMAC and AIDS Subjective: Afebrile. feels better today overall. less abd pain. some pain where stitches are. denies sob, cough, diarrhea. Tolerating meds. Objective: Vital Signs Temp Pulse Resp BP Pulse Ox 36.4 C 77 16 121/78 H 91 L 05/07/16 11:45 05/07/16 11:45 05/07/16 11:45 05/07/16 11:45 05/07/16 11:45 Microbiology 05/01/16 15:10 Blood Culture - Final Blood 05/01/16 15:10 Blood Culture - Final Blood 05/03/16 18:46 Gram Stain - Final Peritoneal Fluid - Eswab 05/03/16 18:24 Gram Stain - Final Abdomen - Tissue 05/03/16 18:40 Gram Stain - Final Peritoneal Fluid - Eswab Laboratory Results 05/05/16 10:30 05/05/16 04:20 05/06/16 05/07/16 05/08/16 05:59 05:59 05:59 Intake Total 3200 400 Output Total 1630 2166 Balance 1570 -1766 - Physical Exam General Appearance: alert, no apparent distress Respiratory: lungs clear Cardiac/Chest: regular rate, rhythm Extremities: No swelling Abdomen: distended (mild), other (mallika drains noted -mostly bloody.) ICD10 Worksheet Patient Problems: Problems Problem Status Diagnosed Febrile illness Acute HIV (human immunodeficiency virus infection) Acute
--- NOTE | 2016-05-07 17:08 | HOSPPROG ---
Hospitalist Progress Note Assessment/Plan: * Fever/hypotension (Sepsis vs. SIRS) - suspect immune reconstitution -prednisone with taper over next 2 weeks -off antibiotics * HIV/AIDS - continue HAART -started approx 8 weeks ago - CD4 48, viral load low * MAC - disseminated - resistant -rifabutin, ethambutol, azithromycin * Intra-abd abscess due to MAC s/p surgical drainage * Post-op ileus -advance diet Subjective: Feeling okay Objective: Vital Signs Temp Pulse Resp BP Pulse Ox 36.5 C 61 17 113/77 95 05/07/16 15:55 05/07/16 15:55 05/07/16 15:55 05/07/16 15:55 05/07/16 15:55 Microbiology 05/01/16 15:10 Blood Culture - Final Blood 05/01/16 15:10 Blood Culture - Final Blood 05/03/16 18:46 Gram Stain - Final Peritoneal Fluid - Eswab 05/03/16 18:24 Gram Stain - Final Abdomen - Tissue 05/03/16 18:40 Gram Stain - Final Peritoneal Fluid - Eswab Laboratory Results 05/05/16 10:30 05/05/16 04:20 05/06/16 05/07/16 05/08/16 05:59 05:59 05:59 Intake Total 3200 400 Output Total 1630 2166 Balance 1570 -1766 - Physical Exam Constitutional: no apparent distress, appears nourished, not in pain Cardiovascular: regular rate and rhythym, no murmur, rub, or gallop Respiratory: no respiratory distress, no rales or rhonchi, clear to auscultation Gastrointestinal: normoactive bowel sounds, soft, non-tender abdomen, no palpable masses Skin: no rashes or abrasions, no fluctuance, no induration Neurologic: AAOx3, sensation intact bilaterally Psychiatric: interacting appropriately, not anxious, not encephalopathic, thought process linear ICD10 Worksheet Patient Problems: Problems Problem Status Diagnosed Febrile illness Acute HIV (human immunodeficiency virus infection) Acute
[2016-05-07] MEDS: PANTOPRAZOLE SODIUM 40 MG TAB PO SCH (17:18)
[2016-05-07] MEDS: MELATONIN 3 MG TAB PO SCH (21:05)
[2016-05-08] MEDS: HYDROCODONE/APAP 5/325 TAB PO PRN ×4 (05:18→21:57)
[2016-05-08 05:34] LABS: % IMMATURE GRANULYOCYTES 1.4 % (0.0-1.1); ABSOLUTE IMMATURE GRANULOCYTES 0.09 10^3/uL (0.00-0.10); ADD DIFF? NO; ADD MORPH? NO; ADD SCAN? NO; ATYPICAL LYMPHOCYTE FLAG 0 (0-99); FRAGMENT RBC FLAG 20 (0-99); HEMATOCRIT 22.6 % (40.0-51.0); HEMOGLOBIN 7.2 g/dL (13.7-17.5); LEFT SHIFT FLG 70 (0-99); LIPEMIA HEMOLYSIS FLAG 80 (0-99); MEAN CELL HEMOGLOBIN 28.5 pg (27.9-34.1); MEAN CELL HEMOGLOBIN CONCENTR. 31.9 g/dL (32.4-36.7); MEAN CELL VOLUME 89.3 fL (81.5-99.8); MEAN PLATELET VOLUME 9.9 fL (8.7-11.7); PLATELET CLUMPS FLAG 10 (0-99); PLATELET COUNT 221 10^3/uL (150-400); RED BLOOD CELL COUNT 2.53 10^6/uL (4.40-6.38); RED CELL DISTRIBUTION WIDTH 16.1 % (11.5-15.2)
[2016-05-08 05:50] LABS: ANION GAP 9 mEq/L (8-16); CALCIUM 8.7 mg/dL (8.5-10.4); CARBON DIOXIDE 19 mEq/l (22-31); CHLORIDE 115 mEq/L (97-110); CREATININE 0.8 mg/dL (0.7-1.3); GLOMERULAR FILTRATION RATE > 60; GLUCOSE 122 mg/dL (70-100); POTASSIUM 3.8 mEq/L (3.5-5.2); SODIUM 143 mEq/L (134-144)
[2016-05-08] MEDS: GABAPENTIN 400 MG CAP PO SCH ×2 (09:52→21:57)
[2016-05-08] MEDS: ETHAMBUTOL HCL 400 MG TAB PO SCH (09:52)
[2016-05-08] MEDS: RITONAVIR 100 MG TAB PO SCH (09:52)
[2016-05-08] MEDS: SULFAMETHOX/TMP 800/160 MG 1 TAB PO SCH (09:52)
[2016-05-08] MEDS: DARUNAVIR ETHANOLATE 800 MG TAB PO SCH (09:52)
[2016-05-08] MEDS: EMTRICITABINE/TENOFOVIR 200MG/300MG TAB PO SCH (09:52)
[2016-05-08] MEDS: FERROUS SULFATE 325 MG TAB PO SCH (09:52)
[2016-05-08] MEDS: AZITHROMYCIN 250 MG TAB PO SCH (09:52)
[2016-05-08] MEDS: predniSONE 20 MG TAB PO SCH (09:52)
[2016-05-08] MEDS: PANTOPRAZOLE SODIUM 40 MG TAB PO SCH (09:52)
[2016-05-08] MEDS: RIFABUTIN 150 MG CAP PO SCH (10:00)
--- NOTE | 2016-05-08 10:32 | SOAPPROG ---
SOAP Progress Note Assessment/Plan: Assessment: 41yo M HIV+ s/p laparotomy with drainage of intraabdominal abscess 2 /2 disseminated MAC Pain controlled Tolerating regular diet without worsening nausea vomiting or distention Encouraged ambulation, PT Appreciate hospitalists, ID Continue KARELE drains Seen with Dr. Aguilar S: pain controlled. Tolerating regular diet without worsening symptoms. He is worried about the cosmetic outcome of surgical incisions O: Sitting upright in bed, comfortable, NAD No increased work of breathing positive bowel sounds throughout, softly distended. KARLEE drains serosanguineous. midline incision clean, dry and intact with [place] drain in place. Objective: Vital Signs Temp Pulse Resp BP Pulse Ox 36.4 C 60 14 115/75 96 05/08/16 04:00 05/08/16 04:00 05/08/16 04:00 05/08/16 04:00 05/08/16 04:00 Laboratory Results 05/08/16 05:25 05/08/16 05:25 05/07/16 05/08/16 05/09/16 05:59 05:59 05:59 Intake Total 400 900 Output Total 2166 622 Balance -1766 278 ICD10 Worksheet Patient Problems: Problems Problem Status Diagnosed Febrile illness Acute HIV (human immunodeficiency virus infection) Acute
--- NOTE | 2016-05-08 16:14 | HOSPPROG ---
Hospitalist Progress Note Assessment/Plan: * Fever/hypotension (Sepsis vs. SIRS) - suspect immune reconstitution -prednisone with taper over next 2 weeks -off antibiotics * HIV/AIDS - continue HAART -started approx 8 weeks ago - CD4 48, viral load low * MAC - disseminated - resistant -rifabutin, ethambutol, azithromycin * Intra-abd abscess due to MAC s/p surgical drainage -drains to be removed soon * Post-op ileus -advanced diet * Weakness - refusing SNF - but he is extremely weak -inpatient rehab consult Subjective: No new complaints, eating okay Objective: Vital Signs Temp Pulse Resp BP Pulse Ox 36.3 C 59 L 18 122/85 H 98 05/08/16 11:59 05/08/16 11:59 05/08/16 11:59 05/08/16 11:59 05/08/16 11:59 Laboratory Results 05/08/16 05:25 05/08/16 05:25 05/07/16 05/08/16 05/09/16 05:59 05:59 05:59 Intake Total 400 900 Output Total 2166 622 Balance -1766 278 - Physical Exam Constitutional: no apparent distress, appears nourished, not in pain Cardiovascular: regular rate and rhythym, no murmur, rub, or gallop Respiratory: no respiratory distress, no rales or rhonchi, clear to auscultation Gastrointestinal: normoactive bowel sounds, soft, non-tender abdomen, no palpable masses Skin: no rashes or abrasions, no fluctuance, no induration Neurologic: AAOx3, sensation intact bilaterally Psychiatric: interacting appropriately, not anxious, not encephalopathic, thought process linear ICD10 Worksheet Patient Problems: Problems Problem Status Diagnosed Febrile illness Acute HIV (human immunodeficiency virus infection) Acute
[2016-05-08] MEDS: MELATONIN 3 MG TAB PO SCH (22:04)
[2016-05-09] MEDS: HYDROCODONE/APAP 5/325 TAB PO PRN ×5 (04:55→22:53)
[2016-05-09 07:44] LABS: % IMMATURE GRANULYOCYTES 1.7 % (0.0-1.1); ABSOLUTE IMMATURE GRANULOCYTES 0.11 10^3/uL (0.00-0.10); ADD DIFF? NO; ADD MORPH? NO; ADD SCAN? NO; ATYPICAL LYMPHOCYTE FLAG 10 (0-99); FRAGMENT RBC FLAG 10 (0-99); HEMATOCRIT 23.1 % (40.0-51.0); HEMOGLOBIN 7.3 g/dL (13.7-17.5); LEFT SHIFT FLG 70 (0-99); LIPEMIA HEMOLYSIS FLAG 80 (0-99); MEAN CELL HEMOGLOBIN 28.5 pg (27.9-34.1); MEAN CELL HEMOGLOBIN CONCENTR. 31.6 g/dL (32.4-36.7); MEAN CELL VOLUME 90.2 fL (81.5-99.8); MEAN PLATELET VOLUME 9.5 fL (8.7-11.7); PLATELET CLUMPS FLAG 0 (0-99); PLATELET COUNT 234 10^3/uL (150-400); RED BLOOD CELL COUNT 2.56 10^6/uL (4.40-6.38)
[2016-05-09] MEDS: predniSONE 20 MG TAB PO SCH (07:57)
[2016-05-09] MEDS: RITONAVIR 100 MG TAB PO SCH (07:58)
[2016-05-09] MEDS: PANTOPRAZOLE SODIUM 40 MG TAB PO SCH (07:58)
[2016-05-09] MEDS: EMTRICITABINE/TENOFOVIR 200MG/300MG TAB PO SCH (07:58)
[2016-05-09] MEDS: SULFAMETHOX/TMP 800/160 MG 1 TAB PO SCH (07:58)
[2016-05-09] MEDS: FERROUS SULFATE 325 MG TAB PO SCH (07:59)
[2016-05-09] MEDS: AZITHROMYCIN 250 MG TAB PO SCH (07:59)
[2016-05-09] MEDS: ETHAMBUTOL HCL 400 MG TAB PO SCH (07:59)
[2016-05-09] MEDS: DARUNAVIR ETHANOLATE 800 MG TAB PO SCH (07:59)
[2016-05-09] MEDS: GABAPENTIN 400 MG CAP PO SCH ×2 (07:59→21:20)
[2016-05-09] MEDS: RIFABUTIN 150 MG CAP PO SCH (08:00)
[2016-05-09 08:02] LABS: ALANINE AMINOTRANSFERASE 39 IU/L (21-72); ALBUMIN 2.3 g/dL (3.5-5.0); ALKALINE PHOSPHATASE 80 IU/L (38-126); ANION GAP 6 mEq/L (8-16); ASPARTATE AMINOTRANSFERASE 20 IU/L (17-59); BILIRUBIN,TOTAL 0.4 mg/dL (0.1-1.4); CALCIUM 8.7 mg/dL (8.5-10.4); CARBON DIOXIDE 19 mEq/l (22-31); CHLORIDE 115 mEq/L (97-110); CREATININE 0.7 mg/dL (0.7-1.3); GLOMERULAR FILTRATION RATE > 60; GLUCOSE 91 mg/dL (70-100); POTASSIUM 3.7 mEq/L (3.5-5.2); SODIUM 140 mEq/L (134-144); TOTAL PROTEIN 5.8 g/dL (6.3-8.2)
--- NOTE | 2016-05-09 08:49 | PCMIDPN ---
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 Continue azithromycin , rifabutin, and ethambutol with concomitant prednisone to decrease inflammatory response. * Disseminated MAC: See above discussion. * AIDS: Continue Truvada and boosted darunavir. 05/09/16 08:45 Subjective: Patient feels clinically improved. Ate 2 breakfast trays this a.m.. Mild abdominal discomfort present. Objective: Vital Signs Temp Pulse Resp BP Pulse Ox 36.9 C 59 L 18 126/76 H 97 05/09/16 08:37 05/09/16 08:37 05/09/16 08:37 05/09/16 08:37 05/09/16 08:37 Microbiology 05/03/16 18:40 Mycobacterial Smear (JERONIMO) - Final Other - Other Laboratory Results 05/09/16 07:25 05/09/16 07:25 05/08/16 05/09/16 05/10/16 05:59 05:59 05:59 Intake Total 900 1830 Output Total 622 1330 Balance 278 500 Azithromycin/rifabutin/ethambutol/prednisone Truvada/ritonavir/darunavir Prophylactic Bactrim Peritoneal tissue and fluid cultures pending; peritoneal tissue for AFB pending Histopathology with caseating and noncaseating granulomas with AFB present AFB blood culture pending MTB PCR peritoneal tissue negative - Physical Exam General Appearance: alert, no apparent distress EENT: No scleral icterus, No thrush Respiratory: lungs clear (Anterolaterally), No respiratory distress Cardiac/Chest: regular rate, rhythm Abdomen: non-tender, other (KARLEE x1 with purulent output; KARLEE x1 with sanguinous output), No distended - Line/s other Lines: other (Right IJ triple-lumen catheter), No drainage, No erythema ICD10 Worksheet Patient Problems: Problems Problem Status Diagnosed Febrile illness Acute HIV (human immunodeficiency virus infection) Acute
--- NOTE | 2016-05-09 12:58 | SOAPPROG ---
SOAP Progress Note Assessment/Plan: Assessment/plan: 41yo M HIV+ s/p laparotomy with drainage of intraabdominal abscess 2/2 disseminated MAC Pain controlled. Tolerating regular diet. Continue KARLEE drains. Consider removing shelley drain tomorrow. Ok to shower. Ok for wounds to get wet. Peripheral neuropathy. Consider increasing gabapentin. Defer to medicine. S: Not much pain in his abdomen. C/o worsened neuropathy of legs and feet. Having formed BMs. O: Sitting upright in bed, comfortable, NAD No increased work of breathing abdomen: softly distended. KARLEE drains seropurulent, light brown. midline incision clean, dry and intact with Shelley drain in place. no erythema. 05/09/16 12:54 Objective: Vital Signs Temp Pulse Resp BP Pulse Ox 36.9 C 56 L 16 116/84 H 97 05/09/16 08:37 05/09/16 11:03 05/09/16 11:03 05/09/16 11:03 05/09/16 11:03 Microbiology 05/03/16 18:40 Mycobacterial Smear (JERONIMO) - Final Other - Other Laboratory Results 05/09/16 07:25 05/09/16 07:25 05/08/16 05/09/16 05/10/16 05:59 05:59 05:59 Intake Total 900 1830 Output Total 622 1330 350 Balance 278 500 -350 ICD10 Worksheet Patient Problems: Problems Problem Status Diagnosed Febrile illness Acute HIV (human immunodeficiency virus infection) Acute
--- NOTE | 2016-05-09 16:11 | HOSPPROG ---
Hospitalist Progress Note Assessment/Plan: 41 yo M with hx of AIDS and disseminated MAC presenting with septic shock in setting of multifocal intraabdominal abscess # multifocal intra-abdominal abscess: s/p surgical debridement and drainage, 2/ 2 MAC # post op ileus: now resolved and tolerating diet # disseminated MAC: continue azith, ethambutol, rifabutin. Appreciate ID # AIDS: continued on HAART # septic shock : resolved, 2/2 above # deconditioning: patient quite weak after prolonged hospital stay, beginning to be able to ambulate independently but not yet able to perform adls # dispo: IP status, unable to dc home safely given inability to ambulate or perform ADLs safely Subjective: no significant overnight events, patient beginning to get up with pt and ambulate a bit, eating well Objective: Vital Signs Temp Pulse Resp BP Pulse Ox 36.9 C 56 L 16 116/84 H 97 05/09/16 08:37 05/09/16 11:03 05/09/16 11:03 05/09/16 11:03 05/09/16 11:03 Microbiology 05/03/16 18:46 Gram Stain - Final Peritoneal Fluid - Eswab 05/03/16 18:24 Gram Stain - Final Abdomen - Tissue 05/03/16 18:40 Gram Stain - Final Peritoneal Fluid - Eswab 05/03/16 18:40 Mycobacterial Smear (JERONIMO) - Final Other - Other Laboratory Results 05/09/16 07:25 05/09/16 07:25 05/08/16 05/09/16 05/10/16 05:59 05:59 05:59 Intake Total 900 1830 Output Total 622 1330 650 Balance 278 500 -650 chronically ill appearing thin aa m, nad anicteric op clear rrr no mrg cta b soft nt nd no cce warm dry well perfused oriented appropriate ICD10 Worksheet Patient Problems: Problems Problem Status Diagnosed Febrile illness Acute HIV (human immunodeficiency virus infection) Acute
[2016-05-09] MEDS: MELATONIN 3 MG TAB PO SCH (21:20)
[2016-05-10] MEDS: HYDROCODONE/APAP 5/325 TAB PO PRN ×5 (07:22→23:45)
[2016-05-10] MEDS: AZITHROMYCIN 250 MG TAB PO SCH (08:47)
[2016-05-10] MEDS: RITONAVIR 100 MG TAB PO SCH (08:47)
[2016-05-10] MEDS: predniSONE 20 MG TAB PO SCH (08:47)
[2016-05-10] MEDS: GABAPENTIN 400 MG CAP PO SCH ×2 (08:47→20:15)
[2016-05-10] MEDS: EMTRICITABINE/TENOFOVIR 200MG/300MG TAB PO SCH (08:47)
[2016-05-10] MEDS: FERROUS SULFATE 325 MG TAB PO SCH (08:48)
[2016-05-10] MEDS: ETHAMBUTOL HCL 400 MG TAB PO SCH (08:48)
[2016-05-10] MEDS: DARUNAVIR ETHANOLATE 800 MG TAB PO SCH (08:48)
[2016-05-10] MEDS: PANTOPRAZOLE SODIUM 40 MG TAB PO SCH (08:48)
[2016-05-10] MEDS: SULFAMETHOX/TMP 800/160 MG 1 TAB PO SCH (08:48)
[2016-05-10] MEDS: RIFABUTIN 150 MG CAP PO SCH (08:52)
--- NOTE | 2016-05-10 10:42 | SOAPPROG ---
SOAP Progress Note Assessment/Plan: Assessment/plan: 41yo M HIV+ s/p laparotomy with drainage of intraabdominal abscess 2/2 disseminated MAC JPs still purulent. Continue drainage. Remove shelley drain from wound. Ok to shower. Pain controlled. Tolerating regular diet. Peripheral neuropathy. Consider increasing gabapentin. Defer to medicine. S: Not much pain in his abdomen. C/o worsened neuropathy of legs and feet. Having formed BMs. O: Sitting upright in bed, comfortable, NAD, eating breakfast and on computer No increased work of breathing abdomen: soft. KARLEE drains seropurulent, light brown. midline incision clean, dry and intact with [place] drain in place. no erythema. 05/10/16 10:41 Objective: Vital Signs Temp Pulse Resp BP Pulse Ox 36.6 C 53 L 16 128/91 H 98 05/10/16 07:37 05/10/16 07:37 05/10/16 07:37 05/10/16 07:37 05/10/16 07:37 Microbiology 05/03/16 18:46 Gram Stain - Final Peritoneal Fluid - Eswab 05/03/16 18:24 Gram Stain - Final Abdomen - Tissue 05/03/16 18:40 Gram Stain - Final Peritoneal Fluid - Eswab Laboratory Results 05/09/16 07:25 05/09/16 07:25 05/09/16 05/10/16 05/11/16 05:59 05:59 05:59 Intake Total 1830 400 Output Total 1330 1390 Balance 500 -990 ICD10 Worksheet Patient Problems: Problems Problem Status Onset Febrile illness Acute HIV (human immunodeficiency virus infection) Acute
--- NOTE | 2016-05-10 15:31 | HOSPPROG ---
Hospitalist Progress Note Assessment/Plan: 41 yo M with hx of AIDS and disseminated MAC presenting with septic shock in setting of multifocal intraabdominal abscess # multifocal intra-abdominal abscess: s/p surgical debridement and drainage, 2/ 2 MAC # post op ileus: now resolved and tolerating diet # disseminated MAC: continue azith, ethambutol, rifabutin. Appreciate ID # AIDS: continued on HAART # septic shock : resolved, 2/2 above # deconditioning: patient quite weak after prolonged hospital stay, beginning to be able to ambulate independently but not yet able to perform adls # dispo: IP status, unable to dc home safely given inability to ambulate or perform ADLs safely but he is not wanting to go to snf, working with pt/ot/cm reviewed care plan with CM Subjective: no signficant overnight events, patient is feeling ok, still very weak when he gets up etc Objective: Vital Signs Temp Pulse Resp BP Pulse Ox 36.6 C 53 L 16 128/91 H 98 05/10/16 07:37 05/10/16 07:37 05/10/16 07:37 05/10/16 07:37 05/10/16 07:37 Microbiology 05/03/16 18:46 Gram Stain - Final Peritoneal Fluid - Eswab Anaerobic Culture - Final 05/03/16 18:24 Gram Stain - Final Abdomen - Tissue Anaerobic Culture - Final 05/03/16 18:40 Gram Stain - Final Peritoneal Fluid - Eswab Anaerobic Culture - Final 05/03/16 18:40 Mycobacterial Smear (JERONIMO) - Final Other - Other 05/03/16 18:24 Mycobacterial Smear (JERONIMO) - Final Abdomen - Tissue Laboratory Results 05/09/16 07:25 05/09/16 07:25 05/09/16 05/10/16 05/11/16 05:59 05:59 05:59 Intake Total 1830 400 Output Total 1330 1390 Balance 500 -990 chronically ill appearing thin aa m, nad anicteric op clear rrr no mrg cta b soft nt nd no cce warm dry well perfused oriented appropriate ICD10 Worksheet Patient Problems: Problems Problem Status Onset Febrile illness Acute HIV (human immunodeficiency virus infection) Acute
--- NOTE | 2016-05-10 17:23 | PCMIDPN ---
Assessment/Plan: # HIV/AIDS, CD4 48 (19%): Viral load 187 suggests compliance with anti- retroviral therapy --Continue Truvada and boosted darunavir. --ppx with Bactrim once daily # Fever, abdominal abscess with path showing granulomas and rare AFB. Suspect IRIS to MAC. fever has resolved and patient's abdominal pain is better on prednisone . There is 1 colony of likely Pebbles on the fungal plates. Assessing the significance of this. so far AFB cultures are no growth today --continue ARV and MAC therapy -- will decrease prednisone to 40 mg -- hold off on discussing new microbiologic finding with patient until understand if significant # dMAC, diagnosed 01/2016 --continue azithromycin, ethambutol, rifabutin. Rifabutin 150 mg because of interaction with darunavir. Azithromycin dosed 500 or 600 mg okay #anemia, stable: Multifactorial dMAC and AIDS Subjective: patient reports for a shows appetite and decreased abdominal pain. Objective: Vital Signs Temp Pulse Resp BP Pulse Ox 36.3 C 61 14 116/87 H 97 05/10/16 15:34 05/10/16 15:34 05/10/16 15:34 05/10/16 15:34 05/10/16 15:34 Microbiology 05/03/16 18:46 Gram Stain - Final Peritoneal Fluid - Eswab Anaerobic Culture - Final 05/03/16 18:24 Gram Stain - Final Abdomen - Tissue Anaerobic Culture - Final 05/03/16 18:40 Gram Stain - Final Peritoneal Fluid - Eswab Anaerobic Culture - Final 05/03/16 18:40 Mycobacterial Smear (JERONIMO) - Final Other - Other 05/03/16 18:24 Mycobacterial Smear (JERONIMO) - Final Abdomen - Tissue Laboratory Results 05/09/16 07:25 05/09/16 07:25 05/09/16 05/10/16 05/11/16 05:59 05:59 05:59 Intake Total 1830 400 Output Total 1330 1390 Balance 500 -990 - Physical Exam General Appearance: alert, no apparent distress EENT: other ( Moist mucous membranes), No scleral icterus, No thrush Respiratory: No lungs clear, No accessory muscle use Cardiac/Chest: regular rate, rhythm Extremities: No pedal edema Abdomen: non-tender, soft, other ( KARLEE drains in place with purulent drainage that is blood tinged) Skin: No rash Neuro/Psych: alert, normal mood/affect, oriented x 3 ICD10 Worksheet Patient Problems: Problems Problem Status Onset Febrile illness Acute HIV (human immunodeficiency virus infection) Acute
[2016-05-10] MEDS: MELATONIN 3 MG TAB PO SCH (20:15)
[2016-05-11] MEDS: HYDROCODONE/APAP 5/325 TAB PO PRN ×5 (03:20→21:33)
[2016-05-11] MEDS: GABAPENTIN 400 MG CAP PO SCH ×2 (07:56→21:34)
[2016-05-11] MEDS: predniSONE 20 MG TAB PO SCH (07:57)
[2016-05-11] MEDS: SULFAMETHOX/TMP 800/160 MG 1 TAB PO SCH (07:57)
[2016-05-11] MEDS: FERROUS SULFATE 325 MG TAB PO SCH (07:57)
[2016-05-11] MEDS: EMTRICITABINE/TENOFOVIR 200MG/300MG TAB PO SCH (07:57)
[2016-05-11] MEDS: AZITHROMYCIN 250 MG TAB PO SCH (07:57)
[2016-05-11] MEDS: PANTOPRAZOLE SODIUM 40 MG TAB PO SCH (07:58)
[2016-05-11] MEDS: ETHAMBUTOL HCL 400 MG TAB PO SCH (07:58)
[2016-05-11] MEDS: RITONAVIR 100 MG TAB PO SCH (07:58)
[2016-05-11] MEDS: DARUNAVIR ETHANOLATE 800 MG TAB PO SCH (07:58)
[2016-05-11] MEDS: RIFABUTIN 150 MG CAP PO SCH (10:28)
--- NOTE | 2016-05-11 12:49 | SOAPPROG ---
SOAP Progress Note Assessment/Plan: Assessment: 41yo male s/p laparotomy, drainage of intraabdominal abscess, disseminated MAC , HIV. Tolerating diet, pain controlled, drains still with brown purulent fluid PE in bed, comfortable abdomen midline stapled incisions clean and dry, no active drainage from small openings superiorly/inferiorly on wound JPs with brown purulent drainage, abdomen mildly distended but soft to palpation Plan awaiting further improvement, pt unable to perform ADLs because of weakness 05/02/16 17:04 05/04/16 10:14 05/06/16 13:15 05/11/16 12:46 Objective: Vital Signs Temp Pulse Resp BP Pulse Ox 36.6 C 52 L 16 128/83 H 98 05/11/16 07:53 05/11/16 07:53 05/11/16 07:53 05/11/16 07:53 05/11/16 07:53 Microbiology 05/03/16 18:46 Gram Stain - Final Peritoneal Fluid - Eswab Anaerobic Culture - Final 05/03/16 18:24 Gram Stain - Final Abdomen - Tissue Anaerobic Culture - Final 05/03/16 18:40 Gram Stain - Final Peritoneal Fluid - Eswab Anaerobic Culture - Final 05/03/16 18:40 Mycobacterial Smear (JERONIMO) - Final Other - Other 05/03/16 18:24 Mycobacterial Smear (JERONIMO) - Final Abdomen - Tissue Laboratory Results 05/09/16 07:25 05/09/16 07:25 05/10/16 05/11/16 05/12/16 05:59 05:59 05:59 Intake Total 400 400 Output Total 1390 700 300 Balance -990 -300 -300 ICD10 Worksheet Patient Problems: Problems Problem Status Onset Febrile illness Acute HIV (human immunodeficiency virus infection) Acute
--- NOTE | 2016-05-11 15:13 | HOSPPROG ---
Hospitalist Progress Note Assessment/Plan: 41 yo M with hx of AIDS and disseminated MAC presenting with septic shock in setting of multifocal intraabdominal abscess # multifocal intra-abdominal abscess: s/p surgical debridement and drainage, 2/ 2 MAC, drains in place # post op ileus: now resolved and tolerating diet # disseminated MAC: continue azith, ethambutol, rifabutin. Appreciate ID # AIDS: continued on HAART # septic shock : resolved, 2/2 above # deconditioning: patient quite weak after prolonged hospital stay, beginning to be able to ambulate independently but not yet able to perform adls # dispo: IP status, unable to dc home safely given inability to ambulate or perform ADLs safely but he is not wanting to go to snf, working with pt/ot/cm reviewed care plan with gen surg Subjective: no acute overnight events, patient w/o complaints other than being hungry Objective: Vital Signs Temp Pulse Resp BP Pulse Ox 36.6 C 52 L 16 128/83 H 98 05/11/16 07:53 05/11/16 07:53 05/11/16 07:53 05/11/16 07:53 05/11/16 07:53 Microbiology 05/03/16 18:46 Gram Stain - Final Peritoneal Fluid - Eswab Anaerobic Culture - Final 05/03/16 18:24 Gram Stain - Final Abdomen - Tissue Anaerobic Culture - Final 05/03/16 18:40 Gram Stain - Final Peritoneal Fluid - Eswab Anaerobic Culture - Final 05/03/16 18:40 Mycobacterial Smear (JERONIMO) - Final Other - Other 05/03/16 18:24 Mycobacterial Smear (JERONIMO) - Final Abdomen - Tissue Laboratory Results 05/09/16 07:25 05/09/16 07:25 05/10/16 05/11/16 05/12/16 05:59 05:59 05:59 Intake Total 400 400 Output Total 1390 700 300 Balance -990 -300 -300 chronically ill appearing thin aa m, nad anicteric op clear rrr no mrg cta b soft nt nd drains with cloudy serousang op no cce warm dry well perfused oriented appropriate ICD10 Worksheet Patient Problems: Problems Problem Status Onset Febrile illness Acute HIV (human immunodeficiency virus infection) Acute
--- NOTE | 2016-05-11 16:20 | PCMIDPN ---
Assessment/Plan: # HIV/AIDS, CD4 48 (19%): Viral load 187 suggests compliance with anti- retroviral therapy --Continue Truvada and boosted darunavir. --ppx with Bactrim once daily # IRIS to dMAC based on path c/w with MAC, decreased VL, increased CD4%. fever resolved , abd pain better. There is 1 colony of likely Pebbles on the fungal plates, suspect this is not true pathogen. AFB cultures are no growth today --continue prednisone to 40 mg and monitor for recurrence of symptoms --contacting ID clinic to arrange appt next week --continue azithromycin, ethambutol, rifabutin. Rifabutin 150 mg because of interaction with darunavir. Azithromycin dosed 500 or 600 mg okay --hold off on additional fungal therapy for now. #anemia, stable: Multifactorial dMAC and AIDS Subjective: patient continues to feel significantly better Objective: Vital Signs Temp Pulse Resp BP Pulse Ox 36.6 C 52 L 16 128/83 H 98 05/11/16 07:53 05/11/16 07:53 05/11/16 07:53 05/11/16 07:53 05/11/16 07:53 Microbiology 05/03/16 18:46 Gram Stain - Final Peritoneal Fluid - Eswab Anaerobic Culture - Final 05/03/16 18:24 Gram Stain - Final Abdomen - Tissue Anaerobic Culture - Final 05/03/16 18:40 Gram Stain - Final Peritoneal Fluid - Eswab Anaerobic Culture - Final 05/03/16 18:40 Mycobacterial Smear (JERONIMO) - Final Other - Other 05/03/16 18:24 Mycobacterial Smear (JERONIMO) - Final Abdomen - Tissue Laboratory Results 05/09/16 07:25 05/09/16 07:25 05/10/16 05/11/16 05/12/16 05:59 05:59 05:59 Intake Total 400 400 Output Total 1390 700 300 Balance -990 -300 -300 AF Tm 36.7 General Appearance: alert, no apparent distress EENT: Moist mucous membranes, No scleral icterus, No thrush Respiratory: No lungs clear, No accessory muscle use Cardiac/Chest: regular rate, rhythm Extremities: No pedal edema Abdomen: non-tender, soft, KARLEE drains in place with brown purulent drainage Skin: No rash Nuro/Psych: alert, normal mood/affect, oriented x 3 ICD10 Worksheet Patient Problems: Problems Problem Status Onset Febrile illness Acute HIV (human immunodeficiency virus infection) Acute
[2016-05-11] MEDS: MELATONIN 3 MG TAB PO SCH (21:34)
[2016-05-12] MEDS: HYDROCODONE/APAP 5/325 TAB PO PRN ×6 (01:31→21:51)
[2016-05-12] MEDS: GABAPENTIN 400 MG CAP PO SCH (09:43)
[2016-05-12] MEDS: DARUNAVIR ETHANOLATE 800 MG TAB PO SCH (09:43)
[2016-05-12] MEDS: AZITHROMYCIN 250 MG TAB PO SCH (09:43)
[2016-05-12] MEDS: SULFAMETHOX/TMP 800/160 MG 1 TAB PO SCH (09:43)
[2016-05-12] MEDS: ETHAMBUTOL HCL 400 MG TAB PO SCH (09:43)
[2016-05-12] MEDS: predniSONE 20 MG TAB PO SCH (09:43)
[2016-05-12] MEDS: PANTOPRAZOLE SODIUM 40 MG TAB PO SCH (09:44)
[2016-05-12] MEDS: FERROUS SULFATE 325 MG TAB PO SCH (09:44)
[2016-05-12] MEDS: RITONAVIR 100 MG TAB PO SCH (09:44)
[2016-05-12] MEDS: EMTRICITABINE/TENOFOVIR 200MG/300MG TAB PO SCH (09:44)
[2016-05-12] MEDS: RIFABUTIN 150 MG CAP PO SCH (09:44)
--- NOTE | 2016-05-12 10:39 | SOAPPROG ---
SOAP Progress Note Assessment/Plan: Assessment: 41yo male s/p laparotomy, drainage of intraabdominal abscess, disseminated MAC , HIV. Tolerating diet, pain controlled, drains still with brown purulent fluid PE in bed, comfortable abdomen midline stapled incisions clean and dry, no active drainage from small openings superiorly/inferiorly on wound, appear drier take off tender than yesterday JPs with brown purulent drainage, abdomen mildly distended but soft to palpation Plan awaiting further improvement, pt unable to perform ADLs because of weakness 05/02/16 17:04 05/04/16 10:14 05/06/16 13:15 05/11/16 12:46 05/12/16 10:39 Objective: Vital Signs Temp Pulse Resp BP Pulse Ox 36.3 C 72 16 140/88 H 96 05/12/16 07:46 05/12/16 07:46 05/12/16 07:46 05/12/16 07:46 05/12/16 07:46 Laboratory Results 05/09/16 07:25 05/09/16 07:25 05/11/16 05/12/16 05/13/16 05:59 05:59 05:59 Intake Total 400 Output Total 700 1690 300 Balance -300 -1690 -300 ICD10 Worksheet Patient Problems: Problems Problem Status Onset Febrile illness Acute HIV (human immunodeficiency virus infection) Acute
--- NOTE | 2016-05-12 13:02 | PCMIDPN ---
Assessment/Plan: # HIV/AIDS, CD4 48 (19%): Viral load 187 suggests compliance with anti- retroviral therapy --Continue Truvada and boosted darunavir. --ppx with Bactrim DS once daily # IRIS to dMAC based on path c/w with MAC, decreased VL, increased CD4%. fever resolved , abd pain better. There is 1 colony of likely Pebbles on the fungal plates, do not believe this is true pathogen. AFB cultures are no growth today --continue prednisone taper. Continue 40mg through 05/14, then 05/15 decrease to 20mg daily for 4 days, then 05/19 decrease to 10mg daily for 4 days then off --contacting ID clinic Tuesday 05/23 @ 11am, arranged for patient --continue azithromycin, ethambutol, rifabutin at current doses. --okay to [place] tomorrow, assure patient has supply of ARV and 3-drug therapy for MAC #anemia, stable: Multifactorial dMAC and AIDS Subjective: Jose continues to report minimal symptoms. No abdominal pain. Trouble sleeping last night, so a bit tired today Denies diarrhea, rash Objective: Vital Signs Temp Pulse Resp BP Pulse Ox 36.5 C 74 16 131/90 H 96 05/12/16 11:26 05/12/16 11:26 05/12/16 11:26 05/12/16 11:26 05/12/16 11:26 Laboratory Results 05/09/16 07:25 05/09/16 07:25 05/11/16 05/12/16 05/13/16 05:59 05:59 05:59 Intake Total 400 Output Total 700 1690 300 Balance -300 -1690 -300 - Physical Exam General Appearance: alert, no apparent distress Respiratory: lungs clear Cardiac/Chest: regular rate, rhythm Extremities: No pedal edema, No inflammation Abdomen: non-tender, soft, other (midline incision healing well, no redness , no drainage; 2 KARLEE drains with cloudy dark, purulent drainage) Skin: pallor, No rash Neuro/Psych: alert, normal mood/affect, oriented x 3 ICD10 Worksheet Patient Problems: Problems Problem Status Onset Febrile illness Acute HIV (human immunodeficiency virus infection) Acute
--- NOTE | 2016-05-12 16:52 | HOSPPROG ---
Hospitalist Progress Note Assessment/Plan: Assessment/Plan: 41 yo M hx AIDS and disseminated MAC presenting with septic shock in setting of multifocal intraabdominal abscess # multifocal intra-abdominal abscess: s/p surgical debridement by Dr. Francois, indwelling drains - d/w CM, will have home care for drain mgmt # post op ileus: now resolved and tolerating diet # disseminated MAC: continue azith, ethambutol, rifabutin, will ensure he has at discharge - continue prednisone taper. Continue 40mg through 05/14, then 05/15 decrease to 20mg daily for 4 days, then 05/19 decrease to 10mg daily for 4 days then off # AIDS: with IRIS, CD4 48 - cont on truvada w/ darunivir boost - cont on ppx bactrim - has 05/23 11 a.m. appt at [facility] # septic shock: evidenced by sepsis-2 criteria w/ fever (39.4C) + tachycardia ( HR 112) + tachypnea (RR 26) + hypotension (SBP 75) + clear source (abscess), resulting in autonomic dysregulation in setting of infxn - s/p fluid boluses and empiric Abx - no leukocytosis 2/2 chronic immunocompromised state # neuropathy: significantly affecting his ambulatory abilities, increase gabapentin to 800mg HS and cont 400mg AM diet. regular ppx. mod risk, lovenox 40 code. full dispo. ADD 05/13, ongoing ambulatory difficulty today Subjective: Patient reports his feet have been so uncomfortable he has been unable to sleep and unable to ambulate Objective: Vital Signs Temp Pulse Resp BP Pulse Ox 36.6 C 75 14 128/83 H 97 05/12/16 15:10 05/12/16 15:10 05/12/16 15:10 05/12/16 15:10 05/12/16 15:10 Laboratory Results 05/09/16 07:25 05/09/16 07:25 05/11/16 05/12/16 05/13/16 05:59 05:59 05:59 Intake Total 400 Output Total 700 1690 300 Balance -300 -1690 -300 - Pending Discharge Pending Discharge Within 24 Hours: Yes Pending Discharge Date: 05/13/16 Pending Discharge Time: 11:00 - Physical Exam Constitutional: no apparent distress, not in pain, chronically ill appearing, uncomfortable Cardiovascular: regular rate and rhythym, no murmur, rub, or gallop Respiratory: no respiratory distress, no rales or rhonchi, clear to auscultation Gastrointestinal: normoactive bowel sounds, no palpable masses, distension (Mild ), other (Abdominal drains in place), No tenderness Skin: no rashes or abrasions, no fluctuance, no induration Neurologic: AAOx3, sensation intact bilaterally (Hypertensive bilateral feet), No weakness (Motor strength 5/5 bilateral lower extremity) Psychiatric: interacting appropriately, not anxious, not encephalopathic, thought process linear ICD10 Worksheet Patient Problems: Problems Problem Status Onset Febrile illness Acute HIV (human immunodeficiency virus infection) Acute
[2016-05-12] MEDS ORDERED: GABAPENTIN 400 MG CAP PO SCH (21:00)
[2016-05-12] MEDS: MELATONIN 3 MG TAB PO SCH (21:52)
[2016-05-13] MEDS ORDERED: ETHAMBUTOL HCL 400 MG TAB PO SCH
[2016-05-13] MEDS ORDERED: predniSONE 20 MG TAB PO SCH
[2016-05-13] MEDS ORDERED: AZITHROMYCIN 250 MG TAB PO SCH
[2016-05-13] MEDS ORDERED: RIFABUTIN 150 MG CAP PO SCH
[2016-05-13] MEDS: HYDROCODONE/APAP 5/325 TAB PO PRN ×4 (02:31→15:31)
[2016-05-13 07:22] VITALS: O2SAT 96
[2016-05-13] MEDS: RITONAVIR 100 MG TAB PO SCH (08:50)
[2016-05-13] MEDS: EMTRICITABINE/TENOFOVIR 200MG/300MG TAB PO SCH (08:50)
[2016-05-13] MEDS: AZITHROMYCIN 250 MG TAB PO SCH (08:50)
[2016-05-13] MEDS: RIFABUTIN 150 MG CAP PO SCH (08:50)
[2016-05-13] MEDS: SULFAMETHOX/TMP 800/160 MG 1 TAB PO SCH (08:50)
[2016-05-13] MEDS: FERROUS SULFATE 325 MG TAB PO SCH (08:51)
[2016-05-13] MEDS: predniSONE 20 MG TAB PO SCH (08:51)
[2016-05-13] MEDS: ETHAMBUTOL HCL 400 MG TAB PO SCH (08:51)
[2016-05-13] MEDS: DARUNAVIR ETHANOLATE 800 MG TAB PO SCH (08:51)
[2016-05-13] MEDS: PANTOPRAZOLE SODIUM 40 MG TAB PO SCH (08:51)
[2016-05-13] MEDS ORDERED: GABAPENTIN 400 MG CAP PO SCH ×2 (09:00)
--- NOTE | 2016-05-13 09:58 | SOAPPROG ---
SOAP Progress Note Assessment/Plan: Assessment: 41yo male s/p laparotomy, drainage of intraabdominal abscess, disseminated MAC , HIV. Tolerating diet, pain controlled, drains still with brown purulent fluid although minimal amounts. PE in bed, comfortable abdomen midline stapled incisions clean and dry, no active drainage from small openings superiorly/inferiorly on wound, appear drier take off tender than yesterday JPs with brown purulent drainage, abdomen mildly distended but soft to palpation Plan Ok to D/C from surgical perspective, leave drains in for now. Pt should follow-up in our office next week for staple, drain removal --- discussed with pt, gave directions to office, wrote in d/c summary. 05/02/16 17:04 05/04/16 10:14 05/06/16 13:15 05/11/16 12:46 05/12/16 10:39 05/13/16 09:57 Objective: Vital Signs Temp Pulse Resp BP Pulse Ox 36.4 C 58 L 16 133/88 H 96 05/13/16 07:20 05/13/16 07:20 05/13/16 07:20 05/13/16 07:20 05/13/16 07:20 Laboratory Results 05/09/16 07:25 05/09/16 07:25 05/12/16 05/13/16 05/14/16 05:59 05:59 05:59 Output Total 1690 1395 315 [facility] [id number] [id number] [id number] ICD10 Worksheet Patient Problems: Problems Problem Status Onset Febrile illness Acute HIV (human immunodeficiency virus infection) Acute
[2016-05-13 11:02] VITALS: BP 144/90; PULSE 70; RESP 18; TEMP 97.7
--- NOTE | 2016-05-13 11:13 | PDDCSUM ---
Discharge Summary Discharge Summary: DISCHARGE SUMMARY FOLLOW-UP ITEMS: Follow-up care at [facility] infectious disease Drain removal next Monday at Dr. Francois clinic DATE OF ADMISSION: 04/29/2016 DATE OF DISCHARGE: 05/13/2016 DISCHARGE DIAGNOSES: 1. Multifocal intra-abdominal abscess 2. Septic shock 3. Disseminated mycobacterium avium complex (mac) 4. Acute postoperative ileus 5. AIDS 6. Neuropathy CONSULTATIONS: Infectious Disease, General surgery PROCEDURES / IMAGIN05/03/2016 laparoscopy and exploratory laparotomy by Dr. Francois with lysis of adhesions and drainage of intra-abdominal and pelvic abscesses CHIEF COMPLAINT: Abdominal pain SUBJECTIVE: Patient reports he is ambulating well at time of discharge, utilizing cane, has intra-abdominal drains PHYSICAL EXAM ON DISCHARGE: Afebrile overnight, systolic blood pressure 130, satting well on room air, alert awake oriented x3 LABS ON DISCHARGE: None, CD4 count is 48 HOSPITAL COURSE BY PROBLEM: 1. Multifocal intra-abdominal abscesses. Patient is status post surgical debridement by Dr. Francois with indwelling drains in place, currently on treatment for disseminated MAC. Patient will have home care to assist with drain management and the drains will be removed next Monday. 2. Septic shock. Evidenced by sepsis 2 criteria with fever plus tachycardia plus tachypnea plus hypotension plus clear source of infection (abscess), resulting in autonomic dysregulation in the setting of infection. Patient required IV fluid boluses and empiric antibiotic treatment. He had no leukocytosis secondary to chronic immunosuppression in the setting of AIDS. 3. Disseminated MAC. Patient has been treated with a combination of azithromycin, ethambutol, rifabutin. He was seen by infectious disease. Did experience IRIS and he has been given prednisone. This prednisone will be tapered in the outpatient setting. 4. AIDS. Patient experienced IRIS in the setting of a CD4 count of 48. As mentioned above, he will have a prednisone taper will be continued on Bactrim prophylactic treatment and he will be continued on his true via with ritonavir and darunavir boost therapy. 5. Acute postoperative ileus. Experienced after surgery, this is now resolved, he is tolerating an oral diet. 6. Neuropathy. Patient has chronic lower extremity neuropathy is previously taking gabapentin 400 mg twice daily. I recommended that he increase his evening dose to 800 mg and monitor for any signs of over-sedation. DISCHARGE MEDICATIONS: Please see official discharge medication reconciliation sheet in chart , gabapentin 400 mg morning and mg at night, prednisone taper, azithromycin, ethambutol, rifabutin, 2 weeks provided the patient will follow up with [facility] Infectious Disease. DISCHARGE INSTRUCTIONS: Patient will follow up with [facility] Infectious Disease on 05/23 at 11:00 a.m. he will also have his drains removed next Monday at Dr. Henry office. TIME SPENT: Greater than 30 minutes were spent on direct patient care, as well as discharge planning and preparation.
--- NOTE | 2016-05-13 11:15 | PDIAF ---
- Diagnosis Diagnosis: AIDS, disseminated MAC, IRIS, neuropathy Code Status: Full Code - Medication Management Discharge Medications: Medications to Continue on Transfer Darunavir Ethanolate [Prezista] 800 mg PO DAILY 04/29/16 [Last Taken 04/29/16] Emtricitabine/Tenofovir [Truvada 200MG/300MG (*)] 1 tab PO DAILY 04/29/16 [Last Taken 04/29/16] Ferrous Sulfate [Ferrous Sulf 325 MG (*)] 325 mg PO DAILY 04/29/16 [Last Taken 04/29/16] Hydrocodone/Acetaminophen [[place] 5/325 (*)] 1 - 2 tab PO Q8H PRN 04/29/16 [Last Taken 04/28/16] Ondansetron Odt [Zofran Odt 4 mg (*)] 4 mg PO Q4H PRN 04/29/16 [Last Taken 04/29] Ritonavir [Norvir] 100 mg PO DAILY 04/29/16 [Last Taken 04/29/16] Sulfamethox/Tmp 800/160 mg [Bactrim DS] 1 tab PO BID 04/29/16 [Last Taken AM DOSE] Acetaminophen [Tylenol 325mg (*)] 650 mg PO Q4 PRN #0 tab 05/13/16 [Last Taken Unknown] Azithromycin [Zithromax] 500 mg PO DAILY #14 tablet 05/13/16 [Last Taken Unknown ] Ethambutol HCl [Myambutol 400 MG (*)] 800 mg PO DAILY #28 tab 05/13/16 [Last Taken Unknown] Gabapentin [Neurontin 400 MG (*)] 400 mg PO DAILY cap 05/13/16 [Last Taken Unknown] Gabapentin [Neurontin 400 MG (*)] 800 mg PO HS #30 cap 05/13/16 [Last Taken Unknown] Ibuprofen [Motrin (*)] 600 mg PO Q6HRS PRN #0 tab 05/13/16 [Last Taken Unknown] Rifabutin 150 mg PO DAILY #14 capsule 05/13/16 [Last Taken Unknown] predniSONE 20 mg PO DAILY #8 tab 05/13/16 [Last Taken Unknown] Jail Antibiotics: Ethambutol, Azithromycin, Rifambutin, Bactrim Discharge Medications: Refer to the Discharge Home Medication list for PRN reason. PICC Care - Routine: N/A - Orders Services needed: Home Care, Registered Nurse Home Care Face to Face: I certify that this patient was under my care and that I had the required [id number] encounter meeting the encounter requirements on the discharge day. My findings support the fact that the patient is homebound as defined in CMS Chapter 7 Medicare Benefits Manual 30.1.1, The condition of the patient is such that there exists a normal inability to leave home and consequently, leaving home would require a considerable and taxing effort. Oxygen: NA Diet Recommendation: no restrictions on diet Castillo: Not applicable Activity/Weight Bearing Restrictions: with cane - Follow Up Care Current Providers and Referrals: IN STATE,. [Primary Care Provider] - Jas Francois MD [Medical Doctor] - (follow-up next Monday, call for appointment)
== END 2016-05-13 16:49 | disposition home health service (06) | DRG 969 ==
LOC: EDUNIT# → F3E 20:14 → F2N 04-30 00:50 → OBSVTOIN 04-30 09:17 → F2N 05-03 18:38 → F3E 05-06 11:09
PROVIDERS: ADMIT Internal Medicine; ATTEND Internal Medicine
PROC: 02HV33Z Insertion of Infusion Device into Superior Vena Cava, Percutaneous Approach (ICD-10-PCS; 2016-04-30)
PROC: 0WBF0ZX Excision of Abdominal Wall, Open Approach, Diagnostic (ICD-10-PCS; principal; 2016-05-03 15:45)
PROC: 0W9G00Z Drainage of Peritoneal Cavity with Drainage Device, Open Approach (ICD-10-PCS; principal; 2016-05-03 15:45)
DX: A41.9 Sepsis, unspecified organism (principal); K65.1 Peritoneal abscess; B20 Human immunodeficiency virus [HIV] disease; R65.21 Severe sepsis with septic shock; A31.0 Pulmonary mycobacterial infection; K91.89 Other postprocedural complications and disorders of digestive system; G62.9 Polyneuropathy, unspecified; D64.9 Anemia, unspecified; R74.0 Nonspecific elevation of levels of transaminase and lactic acid dehydrogenase [LDH]
CPT/HCPCS: 86359-90; 86360-90; 87385-90; 87536-90; 97112-GP; 97116-GP; 97161-GP; 97165-GO; 97530-GO; 97530-GP; 97535-GO; G0378; G8978-GP-CI; G8978-GP-CJ; G8979-GP-CI; G8980-GP-CI; G8987-GO-CK; G8988-GO-CI; G8989-GO-CI; J0692; J1170; J1265; J2405; J2704; J3010; J7512; P9041; Q9967

== ENCOUNTER → 2016-05-23 | Outpatient (CLI) | payer OTHER | LOC: FIMAGING 16:21 | PROVIDERS: ATTEND Surgery | DX: K65.1 Peritoneal abscess (principal); K59.00 Constipation, unspecified ==

== ENCOUNTER 2016-12-28 07:28 | Inpatient (IN) | payer OTHER ==
--- NOTE | 2016-12-28 07:28 | EDPHY ---
HPI/HX/ROS/PE/MDM Narrative: CHIEF COMPLAINT: Abdominal pain HPI: The patient is an HIV positive 41 y/o male arriving via EMS complaining of a stabbing/burning abdominal pain. Per EMS, the pain began yesterday and has rapidly worsened. He admits to vomiting once. The pain is located in all 4 of is quadrants, although the pain is more prominent in his lower abdomen. He also complains of bilateral leg pain. The patient is a frequent hydrocodone user. Denies fever, bowel or urinary complaints, hematuria, hematemesis or other pertinent symptoms REVIEW OF SYSTEMS: Aside from elements discussed in the HPI, a comprehensive 10-point review of systems was reviewed and is negative. PMH: AIDS, abdominal surgery for a multifocal intra-abdominal abscess, disseminated MAC in April 2016, septic shock, chronic lower extremity neuropathy. SOCIAL HISTORY: Prior medical records reviewed including discharge summary from [facility] on PHYSICAL EXAM: General:Patient is alert, in no acute distress, slightly emaciated. ENT:Eyes are normal to inspection. ENT inspection normal. Neck: Normal inspection. Full range of motion. Respiratory:No respiratory distress. Breath sounds normal bilaterally. Cardiovascular: Regular rate and rhythm. Strong peripheral pulses. Normal cap refill. Abdomen: Diffuse severe abdominal pain. There are no peritoneal signs. There are normal bowel sounds. Back: Normal to inspection. No tenderness to palpation. Skin: Normal color. No rash. Warm and dry. Extremities: Normal appearance. Full range of motion. Neuro: Oriented x3. Normal motor function. Normal sensory function. Portions of this note were transcribed by an ED scribe. I personally performed the history, physical exam, and medical decision making; and confirm the accuracy of the information in the transcribed note. ED Course: The patient is a HIV positive 41 y/o male arriving via EMS presenting with diffuse severe abdominal pain, onset yesterday. 0838: The patients abdominopelvic CT shows a bowel obstruction. 0859: Spoke with Dr. Alvarado, radiologist, he reports the patient has a small bowel obstruction, colonic pneumatosis, and ascites. Plan on consulting with a general surgeon. 0935: Consulted with Dr. Ontiveros, general surgeon, she accepts to admit this patient. MDM: This patient presents with severe abdominal pain and is found to have bowel obstruction. He does have an initially elevated lactate, but I believe this is due to his surgical process rather than sepsis. Repeat lactate has normalized. The patient requires emergent surgical consultation and admission. - Data Points Imaging Results: Imaging Impressions Abdomen CT 12/28/16 07:47 Impression: 1. Small bowel obstruction with a transition in the left lower quadrant, with diffuse small bowel wall thickening in the region, which could be related to enteritis, ascites, or other etiology. 2. Colonic pneumatosis with trace pericolonic free air. 3. Constipation. 4. Ascites without visible abscess. 5. Continued decrease in size of a fluid collection adjacent to the uncinate process of the pancreas. 6. Additional findings as above. Findings discussed with Mac Sunshine M.D. on December 28, 2016 at 8:58 a.m. Imaging: Discussed imaging studies w/ inbound call center agent Radiologist, I viewed and interpreted images myself Laboratory Results: Laboratory Results 12/28/16 07:40 12/28/16 07:40 12/28/16 12/28/16 12/28/16 07:44 07:40 07:40 WBC RBC Hgb POC Hgb 12.6 gm/dL L gm/dL (13.7-17.5) Hct POC Hct 37 % L % (40-51) MCV MCH MCHC RDW Plt Count MPV Neut % (Auto) Lymph % (Auto) [place] % (Auto) Eos % (Auto) Baso % (Auto) Nucleat RBC Rel Count Absolute Neuts (auto) Absolute Lymphs (auto) Absolute Monos (auto) Absolute Eos (auto) Absolute Basos (auto) Absolute Nucleated RBC Immature Gran % Immature Gran # VBG Lactic Acid 2.8 mmol/L H mmol/L (0.7-2.1) POC Sodium 139 mEq/L mEq/L (134-144) Sodium 138 mEq/L mEq/L (134-144) POC Potassium 3.8 mEq/L mEq/L (3.3-5.0) Potassium 4.1 mEq/L mEq/L (3.5-5.2) POC Chloride 102 mEq/L mEq/L (97-110) Chloride 102 mEq/L mEq/L (97-110) Carbon Dioxide 23 mEq/l mEq/l (22-31) Anion Gap 13 mEq/L mEq/L (8-16) POC BUN 8 mg/dL mg/dL (7-23) BUN 10 mg/dL mg/dL (7-23) Creatinine 1.0 mg/dL mg/dL (0.7-1.3) POC Creatinine 1.1 mg/dL mg/dL (0.7-1.3) Estimated GFR > 60 Glucose 128 mg/dL H mg/dL (70-100) POC Glucose 132 mg/dL H mg/dL (70-100) Calcium 9.6 mg/dL mg/dL (8.5-10.4) Total Bilirubin 1.2 mg/dL mg/dL (0.1-1.4) Conjugated Bilirubin 0.9 mg/dL H mg/dL (0.0-0.5) Unconjugated Bilirubin 0.3 mg/dL mg/dL (0.0-1.1) AST 50 IU/L IU/L (17-59) ALT 35 IU/L IU/L (21-72) Alkaline Phosphatase 90 IU/L IU/L (38-126) Total Protein 8.0 g/dL g/dL (6.3-8.2) Albumin 4.0 g/dL g/dL (3.5-5.0) Lipase 14 IU/L L IU/L (23-300) 12/28/16 07:40 WBC 1.49 10^3/uL L 10^3/uL (3.80-9.50) RBC 3.64 10^6/uL L 10^6/uL (4.40-6.38) Hgb 11.8 g/dL L g/dL (13.7-17.5) POC Hgb Hct 35.0 % L % (40.0-51.0) POC Hct MCV 96.2 fL fL (81.5-99.8) MCH 32.4 pg pg (27.9-34.1) MCHC 33.7 g/dL g/dL (32.4-36.7) RDW 15.0 % % (11.5-15.2) Plt Count 160 10^3/uL 10^3/uL (150-400) MPV 10.7 fL fL (8.7-11.7) Neut % (Auto) 67.7 % % (39.3-74.2) Lymph % (Auto) 16.8 % % (15.0-45.0) [place] % (Auto) 14.8 % H % (4.5-13.0) Eos % (Auto) 0.0 % L % (0.6-7.6) Baso % (Auto) 0.0 % L % (0.3-1.7) Nucleat RBC Rel Count 0.0 % % (0.0-0.2) Absolute Neuts (auto) 1.01 10^3/uL L 10^3/uL (1.70-6.50) Absolute Lymphs (auto) 0.25 10^3/uL L 10^3/uL (1.00-3.00) Absolute Monos (auto) 0.22 10^3/uL L 10^3/uL (0.30-0.80) Absolute Eos (auto) 0.00 10^3/uL L 10^3/uL (0.03-0.40) Absolute Basos (auto) 0.00 10^3/uL L 10^3/uL (0.02-0.10) Absolute Nucleated RBC 0.00 10^3/uL 10^3/uL (0-0.01) Immature Gran % 0.7 % % (0.0-1.1) Immature Gran # 0.01 10^3/uL 10^3/uL (0.00-0.10) VBG Lactic Acid POC Sodium Sodium POC Potassium Potassium POC Chloride Chloride Carbon Dioxide Anion Gap POC BUN BUN Creatinine POC Creatinine Estimated GFR Glucose POC Glucose Calcium Total Bilirubin Conjugated Bilirubin Unconjugated Bilirubin AST ALT Alkaline Phosphatase Total Protein Albumin Lipase Medications Given: Discontinued Medications Sodium Chloride (Ns) 1,000 mls @ 0 mls/hr IV EDNOW ONE; Wide Open PRN Reason: Protocol Stop: 12/28/16 08:11 Last Admin: 12/28/16 08:50 Dose: 1,000 mls Point of Care Test Results: 12/28/16 07:44 POC Sodium 139 POC Potassium 3.8 POC Chloride 102 POC BUN 8 POC Creatinine 1.1 POC Glucose 132 H General Initial Vital Signs: Initial Vital Signs Temperature (C) 36.8 C 12/28/16 07:37 Heart Rate 88 12/28/16 07:37 Respiratory Rate 18 12/28/16 07:37 Blood Pressure 138/98 H 12/28/16 07:37 O2 Sat (%) 95 12/28/16 07:37 O2 Delivery Mode Room Air Allergies/Adverse Reactions: decongestant's Allergy (Uncoded 04/29/16 17:01) Other-Enter Comments Home Medications: Medication Instructions Recorded Darunavir Ethanolate [Prezista] 800 mg PO DAILY 04/29/16 Emtricitabine/Tenofovir [Truvada 1 tab PO DAILY 04/29/16 200MG/300MG (*)] Ferrous Sulfate [Ferrous Sulf 325 325 mg PO DAILY 04/29/16 MG (*)] Ritonavir [Norvir] 100 mg PO DAILY 04/29/16 Gabapentin [Neurontin 400 MG (*)] 400 mg PO DAILY cap 05/13/16 Gabapentin [Neurontin 400 MG (*)] 800 mg PO HS #30 cap 05/13/16 Azithromycin [Zithromax] 500 mg PO DAILY 12/28/16 Hydrocodone/Acetaminophen [[place] 1 tab PO BID 12/28/16 5/325 (*)] Multivitamins [Multivitamin (*)] 1 each PO DAILY 12/28/16 Rifabutin 150 mg PO DAILY 12/28/16 Departure - Departure Dis[facility]: [facility] In[facility] Acute Clinical Impression: Pneumatosis of intestines Bowel obstruction Qualifiers: Intestinal obstruction type: unspecified Intestinal obstruction extent: unspecified extent Qualified Code(s): K56.609 - Unspecified intestinal obstruction, unspecified as to partial versus complete obstruction Ascites Qualifiers: Ascites type: other type Qualified Code(s): R18.8 - Other ascites Condition: Fair Report Scribed for: Mac Sunshine Report Scribed by: Sara Gonzales Date of Report: 12/28/16 Time of Report: 07:28
[2016-12-28 07:56] LABS: % IMMATURE GRANULYOCYTES 0.7 % (0.0-1.1); ABSOLUTE IMMATURE GRANULOCYTES 0.01 10^3/uL (0.00-0.10); ADD DIFF? NO; ADD MORPH? NO; ADD SCAN? NO; ATYPICAL LYMPHOCYTE FLAG 20 (0-99); FRAGMENT RBC FLAG 0 (0-99); HEMOGLOBIN 11.8 g/dL (13.7-17.5); LEFT SHIFT FLG 10 (0-99); LIPEMIA HEMOLYSIS FLAG 80 (0-99); MEAN CELL HEMOGLOBIN 32.4 pg (27.9-34.1); MEAN CELL HEMOGLOBIN CONCENTR. 33.7 g/dL (32.4-36.7); MEAN CELL VOLUME 96.2 fL (81.5-99.8); MEAN PLATELET VOLUME 10.7 fL (8.7-11.7); PLATELET CLUMPS FLAG 0 (0-99); PLATELET COUNT 160 10^3/uL (150-400); RED BLOOD CELL COUNT 3.64 10^6/uL (4.40-6.38)
[2016-12-28] MEDS ORDERED: NS 1,000 ML IV ONE (08:10)
[2016-12-28] MEDS ORDERED: IOPAMIDOL (ISOVUE-300) 100 ML BTL ONE (08:13)
[2016-12-28 08:18] LABS: ALANINE AMINOTRANSFERASE 35 IU/L (21-72); ALKALINE PHOSPHATASE 90 IU/L (38-126); ANION GAP 13 mEq/L (8-16); ASPARTATE AMINOTRANSFERASE 50 IU/L (17-59); BILIRUBIN,TOTAL 1.2 mg/dL (0.1-1.4); BILIRUBIN-CONJUGATED 0.9 mg/dL (0.0-0.5); BILIRUBIN-UNCONJUGATED 0.3 mg/dL (0.0-1.1); CALCIUM 9.6 mg/dL (8.5-10.4); CARBON DIOXIDE 23 mEq/l (22-31); CHLORIDE 102 mEq/L (97-110); GLOMERULAR FILTRATION RATE > 60; GLUCOSE 128 mg/dL (70-100); POTASSIUM 4.1 mEq/L (3.5-5.2); SODIUM 138 mEq/L (134-144)
[2016-12-28 08:52] LABS: LACGHOST ORDER
--- NOTE | 2016-12-28 10:44 | GHP ---
[f rep st] HISTORY AND PHYSICAL DATE OF ADMISSION: 12/28/2016 REFERRING PHYSICIAN: Mac Sunshine MD CHIEF COMPLAINT: Bowel obstruction. HISTORY OF PRESENT ILLNESS: The patient is a 41-year-old man who has had abdominal pain for 24 hours. It is escalating and crampy in nature. He has had nonbloody emesis x1. He is consistently nauseated. He has had no flatus x2 days. He had a BM yesterday x3. His pain is so severe that he is having difficulty standing up and walking. He presented to the emergency room and a CT scan was obtained, which shows a bowel obstruction with thickened rosenthal and small amount of free air by the colon. PAST MEDICAL HISTORY: HIV, neuropathy managed by Dr. Alberto. PAST SURGICAL HISTORY: Intraabdominal abscess managed by Dr. Francois earlier this year. SOCIAL HISTORY: He uses tobacco products on and off. He denies drug use. He uses rare alcohol. FAMILY HISTORY: Noncontributory and negative. REVIEW OF SYSTEMS: A 10-point review of systems negative except per HPI and neuropathy. PHYSICAL EXAM: VITALS: Reviewed. GENERAL: Pleasant, thin man, lying on gurney, appears ill. HEENT: Normocephalic. No gross hearing deficits. Mucous membranes moist. Pupils equal and round. No scleral icterus. LUNGS: Clear to auscultation bilaterally. No increased work of breathing. CARDIAC: Regular rate. ABDOMEN: Lower midline scar, well-healed. He is distended. He is exceedingly tender to palpation. Bowel sounds are hypoactive. EXTREMITIES: Moves all extremities well. Uses cane. NEURO: Neuropathy. PSYCHIATRIC: Mood and affect normal. LABORATORY DATA: Results reviewed. I personally reviewed the results of his CBC, white count of [address] scan. I have also discussed the case with Dr. Francois. IMPRESSION AND PLAN: The patient is a 41-year-old man with a bowel obstruction. We will provide NG decompression. I will talk to Dr. Alberto regarding the management of his human immunodeficiency virus medications. I think that he will need to go to the operating room as this appears high-grade and his abdomen is very tender to the touch. If after NG decompression this changes dramatically then we can re-evaluate the plan. We will admit him to the hospital, keep him n.p.o. /[id number]/MODL MTDD
[2016-12-28 12:30] LABS: COLOR YELLOW; LEUKOCYTE ESTERASE,URINE NEGATIVE (NEGATIVE); NITRITE,URINE NEGATIVE (NEGATIVE)
[2016-12-28 12:53] LABS: MUCUS TRACE /lpf (NONE-1+)
[2016-12-28 12:59] LABS: RBC,URINE NONE SEEN /hpf (0-3)
[2016-12-28] MEDS ORDERED: METOCLOPRAMIDE 10 MG/2 ML VIAL IVP PRN (13:08)
[2016-12-28] MEDS ORDERED: MIDAZOLAM 2 MG/2 ML VIAL IVP ONE (13:43)
--- NOTE | 2016-12-28 13:43 | PDANEPAE ---
ANE History of Present Illness 41 yo M w SBO here for ex lap ANE Past Medical History - Cardiovascular History Hx Hypertension: No Hx Chest Pain: No - Pulmonary History Hx Oxygen in Use at Home: No Hx Sleep Apnea: No - Neurologic History Neurologic History Comment: Neuropathy, B LE - Endocrine History Hx Diabetes: No - Other Health History Other Health History: HIV - Chronic Pain History Chronic Pain: Yes ANE Review of Systems Review of Systems: - Exercise capacity Exercise capacity: >=4 METS ANE Patient History - Allergies Allergies/Adverse Reactions: decongestant's Allergy (Uncoded 04/29/16 17:01) Other-Enter Comments - Home Medications Home Medications: Darunavir Ethanolate [Prezista] 800 mg PO DAILY 04/29/16 [Last Taken 12/26/16] Emtricitabine/Tenofovir [Truvada 200MG/300MG (*)] 1 tab PO DAILY 04/29/16 [Last Taken 12/26/16] Ferrous Sulfate [Ferrous Sulf 325 MG (*)] 325 mg PO DAILY 04/29/16 [Last Taken 12/26/16] Ritonavir [Norvir] 100 mg PO DAILY 04/29/16 [Last Taken 12/26/16] Azithromycin [Zithromax] 500 mg PO DAILY 12/28/16 [Last Taken 12/26/16] Hydrocodone/Acetaminophen [[place] 5/325 (*)] 1 tab PO BID 12/28/16 [Last Taken ] Multivitamins [Multivitamin (*)] 1 each PO DAILY 12/28/16 [Last Taken Unknown] Rifabutin 150 mg PO DAILY 12/28/16 [Last Taken 12/26/16] - NPO status NPO Status: no food or drink >8 hours NPO Since - Liquids (Date): 12/28/16 NPO Since - Liquids (Time): 06:00 NPO Since - Solids (Date): 12/27/16 NPO Since - Solids (Time): 05:00 - Anes Hx Anes Hx: no prior problems - Smoking Hx Smoking Status: Current some day smoker - Alcohol Use Alcohol Use: Occasionally - Family Anes Hx Family Anes Hx: none ANE Labs/Vital Signs - Labs Result Diagrams: 12/28/16 07:40 12/28/16 07:40 - Vital Signs Blood Pressure: 148/97 Heart Rate: 74 Respiratory Rate: 18 O2 Sat (%): 96 Height: 187.96 cm Weight: 61.235 kg ANE Physical Exam - Airway Neck exam: FROM Mallampati Score: Class 2 Mouth exam: normal dental/mouth exam - Pulmonary Pulmonary: no respiratory distress, clear to auscultation - Cardiovascular Cardiovascular: regular rate and rhythym, no murmur, rub, or gallop - ASA Status ASA Status: III ANE Anesthesia Plan Anesthesia Plan: general endotracheal anesthesia
[2016-12-28] MEDS ORDERED: LR 1,000 ML IV ONE (13:50)
[2016-12-28] MEDS ORDERED: fentaNYL 100 MCG/2 ML INJ ONE ×2 (14:16→15:59)
[2016-12-28] MEDS ORDERED: PROPOFOL 200 MG/20 ML VIAL ONE ×2 (14:16)
[2016-12-28] MEDS ORDERED: LIDOCAINE 2% 100 MG/5 ML SYR ONE (14:17)
[2016-12-28] MEDS ORDERED: SUCCINYLCHOLINE CHLORIDE*ANESTHESIA ONLY*200 MG/10 ML SYR IVP ONE (14:17)
[2016-12-28] MEDS ORDERED: ROCURONIUM 50 MG/5 ML VIAL ONE (14:17)
[2016-12-28] MEDS ORDERED: BUPIVACAINE 0.5% 30 ML SDV ONE (14:29)
[2016-12-28] MEDS ORDERED: cefOXitin SODIUM 2 GM in D5W 100 ML IV ONE (14:53)
[2016-12-28] MEDS ORDERED: NALOXONE HCL 0.4 MG/ML INJ IVP PRN ×2 (15:54→16:02)
[2016-12-28] MEDS ORDERED: HYDROmorphONE/DILAUDID 6 MG/30 ML PCA IV PRN (15:54)
--- NOTE | 2016-12-28 15:58 | POSTOPPROG ---
Post Op Note Date of Operation: 12/28/16 Surgeon: Jas Francois [employer] Specialist: Raquel Jean-Baptiste Anesthesiologist: Charles Bergman Anesthesia: GET(General Endotracheal) Pre-op Diagnosis: SBO Post-op Diagnosis: SBO with interloop abdominal abscess Indication: SBO, hx abdominal infection, HIV Procedure: laparotomy c adhesiolysis, drainage of abscess, mesenteric biopsies Findings: abscess causing SBO, diffuse cheesy white nodules of mesentery Inf/Abcess present in the surg proc area at time of surgery?: Yes Depth: Organ Space EBL: 50-100 Complications: none Specimen(s): mesenteric biopsies to pathology, abscess fluid sent to lab
[2016-12-28] MEDS ORDERED: HYDROmorphONE/DILAUDID 1 MG/ML INJ IVP PRN (16:02)
[2016-12-28] MEDS ORDERED: fentaNYL 100 MCG/2 ML INJ IVP PRN (16:02)
[2016-12-28] MEDS ORDERED: ONDANSETRON 4 MG/2 ML VIAL IVP PRN (16:02)
--- NOTE | 2016-12-28 16:48 | PDGENHP ---
History and Physical - Chief Complaint Acute Abdominal Pain - History of Present Illness Primary ID: Dr. Alberto Primary Surg: Dr. Francois HPI: 41 yo M p/w acute abdominal pain characterized as crampy, associated w/ nausea, non-bloody emesis, onset of symptoms 24hrs prior to arrival. He had a BM yesterday, but reports not passage of gas x 2 days. Pain is exacerbated by standing and ambulating. Post-operatively patient is comfortable, showing no signs of pain, and is unable to further expand on any other details. History Information - Allergies/Home Medication List Allergies/Adverse Reactions: decongestant's Allergy (Uncoded 04/29/16 17:01) Other-Enter Comments Home Medications: Darunavir Ethanolate [Prezista] 800 mg PO DAILY 04/29/16 [Last Taken 12/26/16] Emtricitabine/Tenofovir [Truvada 200MG/300MG (*)] 1 tab PO DAILY 04/29/16 [Last Taken 12/26/16] Ferrous Sulfate [Ferrous Sulf 325 MG (*)] 325 mg PO DAILY 04/29/16 [Last Taken 12/26/16] Ritonavir [Norvir] 100 mg PO DAILY 04/29/16 [Last Taken 12/26/16] Azithromycin [Zithromax] 500 mg PO DAILY 12/28/16 [Last Taken 12/26/16] Hydrocodone/Acetaminophen [[place] 5/325 (*)] 1 tab PO BID 12/28/16 [Last Taken ] Multivitamins [Multivitamin (*)] 1 each PO DAILY 12/28/16 [Last Taken Unknown] Rifabutin 150 mg PO DAILY 12/28/16 [Last Taken 12/26/16] I have personally reviewed and updated: family history, medical history, social history, surgical history - Past Medical History Additional medical history: 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 Neuropathy - Surgical History Additional surgical history: Intra-abdominal abscess drainage - Social History Smoking Status: Current some day smoker Alcohol Use: Occasionally Drug Use: None Review of Systems Review of Systems: ROS: 10pt was reviewed & negative except for what was stated in HPI & below Gastrointestinal: Reports: vomitting, abdominal pain, nausea Physical Exam Physical Exam: Temp Pulse Resp BP Pulse Ox 36.3 C 80 10 L 149/124 H 100 12/28/16 16:24 12/28/16 16:23 12/28/16 16:35 12/28/16 16:35 12/28/16 16:35 O2 (L/minute) 6 Constitutional: no apparent distress, not in pain, chronically ill appearing, cachectic, No uncomfortable Eyes: PERRL, anicteric sclera, EOMI Ears, Nose, Mouth, Throat: moist mucous membranes, no oral mucosal ulcers Cardiovascular: tachycardia, No systolic murmur, No irregularly irregular, No edema Respiratory: no respiratory distress, no rales or rhonchi, clear to auscultation , other (poor insp effort) Gastrointestinal: distension (mild-moderate, firm), No normoactive bowel sounds (hypoactive/absent bowel sounds), No tenderness, No guarding Genitourinary: no bladder fullness, no bladder tenderness, No emery in urethra Skin: warm, normal color, no rashes or abrasions, no fluctuance, no induration, No mottled Psychiatric: other (opens eyes to verbal stimuli, no directible movements top start, not verbalizing) Lab Data & Imaging Review 12/28/16 07:40 12/28/16 07:40 WBC 1.49 10^3/uL (3.80-9.50) L 12/28/16 07:40 RBC 3.64 10^6/uL (4.40-6.38) L 12/28/16 07:40 Hgb 11.8 g/dL (13.7-17.5) L 12/28/16 07:40 POC Hgb 12.6 gm/dL (13.7-17.5) L 12/28/16 07:44 Hct 35.0 % (40.0-51.0) L 12/28/16 07:40 POC Hct 37 % (40-51) L 12/28/16 07:44 MCV 96.2 fL (81.5-99.8) 12/28/16 07:40 MCH 32.4 pg (27.9-34.1) 12/28/16 07:40 MCHC 33.7 g/dL (32.4-36.7) 12/28/16 07:40 RDW 15.0 % (11.5-15.2) 12/28/16 07:40 Plt Count 160 10^3/uL (150-400) 12/28/16 07:40 MPV 10.7 fL (8.7-11.7) 12/28/16 07:40 Neut % (Auto) 67.7 % (39.3-74.2) 12/28/16 07:40 Lymph % (Auto) 16.8 % (15.0-45.0) 12/28/16 07:40 [place] % (Auto) 14.8 % (4.5-13.0) H 12/28/16 07:40 Eos % (Auto) 0.0 % (0.6-7.6) L 12/28/16 07:40 Baso % (Auto) 0.0 % (0.3-1.7) L 12/28/16 07:40 Nucleat RBC Rel Count 0.0 % (0.0-0.2) 12/28/16 07:40 Absolute Neuts (auto) 1.01 10^3/uL (1.70-6.50) L 12/28/16 07:40 Absolute Lymphs (auto) 0.25 10^3/uL (1.00-3.00) L 12/28/16 07:40 Absolute Monos (auto) 0.22 10^3/uL (0.30-0.80) L 12/28/16 07:40 Absolute Eos (auto) 0.00 10^3/uL (0.03-0.40) L 12/28/16 07:40 Absolute Basos (auto) 0.00 10^3/uL (0.02-0.10) L 12/28/16 07:40 Absolute Nucleated RBC 0.00 10^3/uL (0-0.01) 12/28/16 07:40 Immature Gran % 0.7 % (0.0-1.1) 12/28/16 07:40 Immature Gran # 0.01 10^3/uL (0.00-0.10) 12/28/16 07:40 VBG Lactic Acid 1.4 mmol/L (0.7-2.1) 12/28/16 10:05 POC Sodium 139 mEq/L (134-144) 12/28/16 07:44 Sodium 138 mEq/L (134-144) 12/28/16 07:40 POC Potassium 3.8 mEq/L (3.3-5.0) 12/28/16 07:44 Potassium 4.1 mEq/L (3.5-5.2) 12/28/16 07:40 POC Chloride 102 mEq/L (97-110) 12/28/16 07:44 Chloride 102 mEq/L (97-110) 12/28/16 07:40 Carbon Dioxide 23 mEq/l (22-31) 12/28/16 07:40 Anion Gap 13 mEq/L (8-16) 12/28/16 07:40 POC BUN 8 mg/dL (7-23) 12/28/16 07:44 BUN 10 mg/dL (7-23) 12/28/16 07:40 Creatinine 1.0 mg/dL (0.7-1.3) 12/28/16 07:40 POC Creatinine 1.1 mg/dL (0.7-1.3) 12/28/16 07:44 Estimated GFR > 60 12/28/16 07:40 Glucose 128 mg/dL (70-100) H 12/28/16 07:40 POC Glucose 132 mg/dL (70-100) H 12/28/16 07:44 Calcium 9.6 mg/dL (8.5-10.4) 12/28/16 07:40 Total Bilirubin 1.2 mg/dL (0.1-1.4) 12/28/16 07:40 Conjugated Bilirubin 0.9 mg/dL (0.0-0.5) H 12/28/16 07:40 Unconjugated Bilirubin 0.3 mg/dL (0.0-1.1) 12/28/16 07:40 AST 50 IU/L (17-59) 12/28/16 07:40 ALT 35 IU/L (21-72) 12/28/16 07:40 Alkaline Phosphatase 90 IU/L (38-126) 12/28/16 07:40 Total Protein 8.0 g/dL (6.3-8.2) 12/28/16 07:40 Albumin 4.0 g/dL (3.5-5.0) 12/28/16 07:40 Lipase 14 IU/L (23-300) L 12/28/16 07:40 Urine Color YELLOW 12/28/16 12:05 Urine Appearance CLEAR 12/28/16 12:05 Urine pH 5.0 (5.0-7.5) 12/28/16 12:05 Ur Specific [place] > 1.030 (1.002-1.030) H 12/28/16 12:05 Urine Protein 1+ (NEGATIVE) H 12/28/16 12:05 Urine Ketones NEGATIVE (NEGATIVE) 12/28/16 12:05 Urine Blood NEGATIVE (NEGATIVE) 12/28/16 12:05 Urine Nitrate NEGATIVE (NEGATIVE) 12/28/16 12:05 Urine Bilirubin NEGATIVE (NEGATIVE) 12/28/16 12:05 Urine Urobilinogen NEGATIVE EU (0.2-1.0) 12/28/16 12:05 Ur Leukocyte Esterase NEGATIVE (NEGATIVE) 12/28/16 12:05 Urine RBC NONE SEEN /hpf (0-3) 12/28/16 12:05 Urine WBC 1-3 /hpf (0-3) 12/28/16 12:05 Ur Epithelial Cells TRACE /lpf (NONE-1+) 12/28/16 12:05 Urine Mucus TRACE /lpf (NONE-1+) 12/28/16 12:05 Urine Glucose NEGATIVE (NEGATIVE) 12/28/16 12:05 Patient ABO/Rh O POSITIVE 12/28/16 10:50 Antibody Screen NEGATIVE 12/28/16 10:50 Visualized and Interpreted imaging results: Yes Interpretation: abd xray w/ dilated small and large bowel Assessment & Plan Assessment: 41 yo M p/w acute small bowel obstruction in setting of HIV and prior intra- abdominal abscess Plan: 1. SBO. Acute, evidenced by CT and x-ray, w/ transition point in LLQ, prior surg by Dr. Francois - NGT in ED - to OR w/ Dr. Francois today, d/w Dr. Francois, he reports JADA and drainage of small abscess - pain control w/ IV dilaudid - remain NPO post-op 2. HIV. Chronic, cont home Rx - reviewed outside records (Prog Note by Dr. Alberto, reporting triple therapy for disseminated MAC), will cont tx for dMAC - reported small abscess to Dr. Alberto, cx sent 3. Neuropathy. Cont gabapentin once able to take PO 4. Neutropenia. ANC 1000, monitor CBC 5. Elevated blood pressure. Acute, new problem, further w/u indicated. Occurred post-operatively, keep SBP < 160, DBP < 110 to avoid bleeding - PRN labetolol - check CBC/CMP in AM Diet. NPO PPx. High risk, SCDs, hold pharm immediately post-op Code. Full Dispo. ADD uncertain, anticipated LOS > 48hrs for reasonable medical necessity including acute SBO requiring surgical intervention.
[2016-12-28] MEDS ORDERED: LABETALOL HCL 5 MG/ML 20 ML MDV ONE (17:17)
[2016-12-28] MEDS ORDERED: LABETALOL HCL 5 MG/ML 20 ML MDV IVP PRN (17:26)
[2016-12-28] MEDS ORDERED: LABETALOL HCL 5 MG/ML 20 ML MDV IVP ONE (17:30)
[2016-12-28] MEDS: NS W/ 20 KCl/L 1,000 ML IV SCH (18:27)
[2016-12-28] MEDS: HYDROmorphONE/DILAUDID 1 MG/ML INJ IVP PRN ×3 (18:29→21:20)
[2016-12-28] MEDS: GABAPENTIN 400 MG CAP PO SCH (20:46)
[2016-12-29] MEDS: HYDROmorphONE/DILAUDID 1 MG/ML INJ IVP PRN ×2 (00:43→05:01)
[2016-12-29 05:28] LABS: % IMMATURE GRANULYOCYTES 0.5 % (0.0-1.1); ABSOLUTE IMMATURE GRANULOCYTES 0.01 10^3/uL (0.00-0.10); ADD DIFF? NO; ADD MORPH? NO; ADD SCAN? NO; ATYPICAL LYMPHOCYTE FLAG 20 (0-99); FRAGMENT RBC FLAG 0 (0-99); HEMATOCRIT 28.7 % (40.0-51.0); HEMOGLOBIN 9.5 g/dL (13.7-17.5); LEFT SHIFT FLG 20 (0-99); LIPEMIA HEMOLYSIS FLAG 80 (0-99); MEAN CELL HEMOGLOBIN 32.4 pg (27.9-34.1); MEAN CELL HEMOGLOBIN CONCENTR. 33.1 g/dL (32.4-36.7); MEAN PLATELET VOLUME 11.4 fL (8.7-11.7); PLATELET CLUMPS FLAG 0 (0-99); PLATELET COUNT 134 10^3/uL (150-400); RED BLOOD CELL COUNT 2.93 10^6/uL (4.40-6.38); RED CELL DISTRIBUTION WIDTH 15.1 % (11.5-15.2)
[2016-12-29 05:44] LABS: ANION GAP 8 mEq/L (8-16); CALCIUM 8.2 mg/dL (8.5-10.4); CARBON DIOXIDE 19 mEq/l (22-31); CHLORIDE 112 mEq/L (97-110); GLOMERULAR FILTRATION RATE > 60; GLUCOSE 100 mg/dL (70-100); MAGNESIUM 1.7 mg/dL (1.6-2.3); POTASSIUM 4.7 mEq/L (3.5-5.2); SODIUM 139 mEq/L (134-144)
[2016-12-29] MEDS: NS W/ 20 KCl/L 1,000 ML IV SCH ×2 (07:20→21:24)
--- NOTE | 2016-12-29 07:36 | PCMIDPN ---
Assessment/Plan: #SBO due to abscess likely due to dMAC/IRIS s/p surgery. Gram stains on all standard cultures negative. --awaiting cultures & path, but strongly suspect MAC or IRIS response to MAC - unlikely positive cx with the later --continue of standard bacterial coverage --called micro to assure AFB culture set up #AIDS CD4=24 (16%) with very low VL (29, essentially viral suppression): --continue DRV/r/TDF/FTC when can take PO --hold off on PCP ppx for now, had planned start of Mepron but will hold off with GI side effect #dMAC --continue rifabutin/ethambutol/azitho when can take PO. 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 Past w/u: 10/10 bone marrow flow cytometric analysis of bone marrow biopsy showed no evidence of monoclonal T-cell population in conjunction with analysis of CD3, CD4 and CD7 ; markedly hypocellular marrow with scant trilineage hematopoiesis. Low haptoglobin, nl adrianne, CMV load negative, parvo Ab not suggestive of acute dz, PNH negative --review results with hematology Subjective: patient c/o incision pain post op Objective: Vital Signs Temp Pulse Resp BP Pulse Ox 36.9 C 106 H 17 142/90 H 97 12/29/16 04:00 12/29/16 04:00 12/29/16 04:00 12/29/16 04:00 12/29/16 04:00 Microbiology 12/28/16 15:36 Gram Stain - Final Abdomen - Tissue 12/28/16 15:36 Gram Stain - Final Abdomen - Eswab 12/28/16 15:36 Gram Stain - Final Abdomen - Eswab 12/28/16 15:36 Mycobacterial Smear (JERONIMO) - Final Abdomen - Eswab Mycobacterial Culture - Final 12/28/16 15:36 Mycobacterial Smear (JERONIMO) - Final Abdomen - Eswab Mycobacterial Culture - Final Laboratory Results 12/29/16 04:39 12/29/16 04:39 12/28/16 12/29/16 12/30/16 05:59 05:59 05:59 Intake Total 2700 Output Total 325 300 Balance 2375 -300 - Physical Exam General Appearance: alert, no apparent distress, thin EENT: pale conjunctiva, No thrush Respiratory: lungs clear, No accessory muscle use Cardiac/Chest: tachycardia Extremities: No pedal edema Abdomen: soft, distended, guarding, other (blood tinged dressing in place; quiet bowel sounds) Neuro/Psych: alert, other (cooperative) - Time Spent With Patient Time Spent with Patient: greater than 25 minutes Time Spent with Patient: Greater than 25 minutes spent on this patients care, greater than 50% of time spent counseling, educating, and coordinating care regarding the above mentioned plan. ICD10 Worksheet Patient Problems: Problems Problem Status Onset Ascites Acute Bowel obstruction Acute Pneumatosis of intestines Acute Febrile illness Acute HIV (human immunodeficiency virus infection) Acute
[2016-12-29] MEDS ORDERED: NALOXONE HCL 0.4 MG/ML INJ IVP PRN (09:29)
--- NOTE | 2016-12-29 09:33 | SOAPPROG ---
SOAP Progress Note Assessment/Plan: Assessment: Postop lysis of adhesions/doing okay/vital signs stable/afebrile/hematocrit 29/ Complains of incisional pain and NG irritation/urine output okay/NG minimal Abdomen soft with decreased bowel sounds/wound okay/chest clear Plan: We will switch to Dilaudid ANALYST SALES 12/29/16 09:32 Objective: Vital Signs Temp Pulse Resp BP Pulse Ox 36.7 C 89 16 134/99 H 97 12/29/16 07:30 12/29/16 07:30 12/29/16 07:30 12/29/16 07:30 12/29/16 07:30 Microbiology 12/28/16 15:36 Gram Stain - Final Abdomen - Tissue 12/28/16 15:36 Gram Stain - Final Abdomen - Eswab 12/28/16 15:36 Gram Stain - Final Abdomen - Eswab 12/28/16 15:36 Mycobacterial Smear (JERONIMO) - Final Abdomen - Eswab Mycobacterial Culture - Final 12/28/16 15:36 Mycobacterial Smear (JERONIMO) - Final Abdomen - Eswab Mycobacterial Culture - Final Laboratory Results 12/29/16 04:39 12/29/16 04:39 12/28/16 12/29/16 12/30/16 05:59 05:59 05:59 Intake Total 2700 Output Total 325 300 Balance 2375 -300 ICD10 Worksheet Patient Problems: Problems Problem Status Onset Ascites Acute Bowel obstruction Acute Pneumatosis of intestines Acute Febrile illness Acute HIV (human immunodeficiency virus infection) Acute
[2016-12-29] MEDS: HYDROmorphONE/DILAUDID 6 MG/30 ML PCA IV PRN (10:07)
[2016-12-29] MEDS: PROMETHAZINE HCL 25 MG/ML INJ IVP PRN (11:36)
[2016-12-29] MEDS: AZITHROMYCIN 250 MG TAB PO SCH (11:37)
[2016-12-29] MEDS: ETHAMBUTOL HCL 400 MG TAB PO SCH (11:37)
[2016-12-29] MEDS: GABAPENTIN 400 MG CAP PO SCH ×2 (11:37→21:17)
[2016-12-29] MEDS: EMTRICITABINE/TENOFOVIR 200MG/300MG TAB PO SCH (11:37)
[2016-12-29] MEDS: RIFABUTIN 150 MG CAP PO SCH (11:38)
[2016-12-29] MEDS: RITONAVIR 100 MG TAB PO SCH (11:38)
[2016-12-29] MEDS: DARUNAVIR ETHANOLATE 800 MG TAB PO SCH (11:38)
--- NOTE | 2016-12-29 14:40 | PDMN ---
Medical Necessity Medical necessity: Patient meets IN[place] criteria [place] [facility] [place] Intestinal Obstruction (acute SBO, surgical intervention required; anticipated LOS > 2 midnights).
--- NOTE | 2016-12-29 15:02 | ASMTCMCOM ---
CM Note CM Note Notes: Pt. is a 41-year-old disabled man admitted for a small bowel obstruction. Pt. having pain. Had surgery. Pt. w/ hx. of HIV, AIDS, neuropathy. Works with Dr. Alberto on an outpatient basis. PT and OT are consulted. Await their recommendations. SHEMAR/SADIE to follow. Date Signed: 12/29/2016 03:01 PM Electronically Signed By:Kati Cruz LCSW
--- NOTE | 2016-12-29 16:55 | HOSPPROG ---
Hospitalist Progress Note Assessment/Plan: Assessment: 41 yo M p/w acute small bowel obstruction in setting of HIV and prior intra- abdominal abscess Plan: 1. SBO. 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 AIDS. Chronic, cont home Rx (encouraging patient to take after pre- medicating for nausea and clamping NGT) - dMAC tx continued, per Dr. Alberto 3. Neuropathy. Cont gabapentin once able to take PO 4. Neutropenia. ANC 1500, monitor CBC 5. Elevated blood pressure. Resolved post-op 6. Metabolic acidosis. Acute, 2/2 SBO and hypovolemia, resolved Diet. NPO w/ NGT PPx. High risk, SCDs, hold pharm immediately post-op Code. Full Dispo. 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 Objective: Vital Signs Temp Pulse Resp BP Pulse Ox 38.3 C H 97 16 130/98 H 98 12/29/16 15:51 12/29/16 15:51 12/29/16 15:51 12/29/16 15:51 12/29/16 15:51 Microbiology 12/28/16 15:36 Gram Stain - Final Abdomen - Eswab 12/28/16 15:36 Gram Stain - Final Abdomen - Eswab 12/28/16 15:36 Gram Stain - Final Abdomen - Tissue 12/28/16 15:36 Mycobacterial Smear (JERONIMO) - Final Abdomen - Tissue 12/28/16 15:36 Mycobacterial Smear (JERONIMO) - Final Abdomen - Eswab 12/28/16 15:36 Mycobacterial Smear (JERONIMO) - Final Abdomen - Eswab Mycobacterial Culture - Final 12/28/16 15:36 Mycobacterial Smear (JERONIMO) - Final Abdomen - Eswab Mycobacterial Culture - Final Laboratory Results 12/29/16 04:39 12/29/16 04:39 12/28/16 12/29/16 12/30/16 05:59 05:59 05:59 Intake Total 2700 1994 Output Total 325 575 Balance 2375 1420 - Physical Exam Constitutional: no apparent distress, chronically ill appearing, uncomfortable, cachectic Cardiovascular: regular rate and rhythym, no murmur, rub, or gallop, No edema Respiratory: no respiratory distress, no rales or rhonchi, clear to auscultation Gastrointestinal: tenderness (mild around surg site), distension (moderate, central incsion wound), No normoactive bowel sounds (hypoactive bowel sounds), No guarding Skin: No erythema Neurologic: AAOx3, sensation intact bilaterally, No facial droop Psychiatric: interacting appropriately, not anxious, not encephalopathic, thought process linear ICD10 Worksheet Patient Problems: Problems Problem Status Onset Febrile illness Acute HIV (human immunodeficiency virus infection) Acute Bowel obstruction Acute Ascites Acute Pneumatosis of intestines Acute
[2016-12-30] MEDS: NS W/ 20 KCl/L 1,000 ML IV SCH (04:05)
[2016-12-30] MEDS: D5W 1/2 NS 1,000 ML IV SCH ×2 (08:43→17:51)
[2016-12-30] MEDS: HYDROmorphONE/DILAUDID 6 MG/30 ML PCA IV PRN ×2 (09:55→18:04)
[2016-12-30 09:59] LABS: % IMMATURE GRANULYOCYTES 2.3 % (0.0-1.1); ABSOLUTE IMMATURE GRANULOCYTES 0.03 10^3/uL (0.00-0.10); ADD DIFF? NO; ADD MORPH? NO; ADD SCAN? NO; ATYPICAL LYMPHOCYTE FLAG 0 (0-99); FRAGMENT RBC FLAG 0 (0-99); HEMATOCRIT 23.1 % (40.0-51.0); HEMOGLOBIN 7.5 g/dL (13.7-17.5); LEFT SHIFT FLG 50 (0-99); LIPEMIA HEMOLYSIS FLAG 80 (0-99); MEAN CELL HEMOGLOBIN 32.3 pg (27.9-34.1); MEAN CELL HEMOGLOBIN CONCENTR. 32.5 g/dL (32.4-36.7); MEAN CELL VOLUME 99.6 fL (81.5-99.8); MEAN PLATELET VOLUME 10.8 fL (8.7-11.7); PLATELET CLUMPS FLAG 0 (0-99); PLATELET COUNT 94 10^3/uL (150-400); RED BLOOD CELL COUNT 2.32 10^6/uL (4.40-6.38); RED CELL DISTRIBUTION WIDTH 15.3 % (11.5-15.2)
[2016-12-30] MEDS: AZITHROMYCIN 250 MG TAB PO SCH (09:59)
[2016-12-30] MEDS: RIFABUTIN 150 MG CAP PO SCH (09:59)
[2016-12-30] MEDS: RITONAVIR 100 MG TAB PO SCH (10:00)
[2016-12-30] MEDS: DARUNAVIR ETHANOLATE 800 MG TAB PO SCH (10:01)
[2016-12-30] MEDS: GABAPENTIN 400 MG CAP PO SCH ×2 (10:01→20:19)
[2016-12-30] MEDS: EMTRICITABINE/TENOFOVIR 200MG/300MG TAB PO SCH (10:01)
[2016-12-30] MEDS: ETHAMBUTOL HCL 400 MG TAB PO SCH (10:01)
[2016-12-30] MEDS: ONDANSETRON 4 MG/2 ML VIAL IVP PRN (10:05)
[2016-12-30 10:18] LABS: ANION GAP 5 mEq/L (8-16); CALCIUM 8.3 mg/dL (8.5-10.4); CARBON DIOXIDE 22 mEq/l (22-31); CHLORIDE 108 mEq/L (97-110); CREATININE 0.9 mg/dL (0.7-1.3); GLOMERULAR FILTRATION RATE > 60; GLUCOSE 71 mg/dL (70-100); POTASSIUM 3.8 mEq/L (3.5-5.2); SODIUM 135 mEq/L (134-144)
--- NOTE | 2016-12-30 13:45 | SOAPPROG ---
SOAP Progress Note Assessment/Plan: Assessment: 41 yo M with hx of HIV now POD #2 s/p exploratory laparotomy and lysis of adhesions. H/H 7.5 and 23 today. Asymptomatic. Type and crossed. NGT with 200cc output. Removal today with trial of clear liquid diet. Instructed to go easy. Micro/path pending Continue pain control with MANAGING DIRECTOR PT/OT Dressing changes PRN Appreciate hospitalists S: Pain controlled. Eager to have NGT removed and begin clears. Not passing flatus/BM yet. O: Afebrile Lying in bed, NAD MMM Belly soft, but tender. 12/30/16 13:48 Objective: Vital Signs Temp Pulse Resp BP Pulse Ox 37.1 C 87 18 104/76 94 12/30/16 12:00 12/30/16 12:00 12/30/16 12:00 12/30/16 12:00 12/30/16 12:00 Microbiology 12/28/16 15:36 Gram Stain - Final Abdomen - Tissue 12/28/16 15:36 Gram Stain - Final Abdomen - Eswab 12/28/16 15:36 Gram Stain - Final Abdomen - Eswab 12/28/16 15:36 Mycobacterial Smear (JERONIMO) - Final Abdomen - Tissue 12/28/16 15:36 Mycobacterial Smear (JERONIMO) - Final Abdomen - Eswab Laboratory Results 12/30/16 09:26 12/30/16 09:26 12/29/16 12/30/16 12/31/16 05:59 05:59 05:59 Intake Total 2700 1994 Output Total 325 1625 Balance 2375 370 ICD10 Worksheet Patient Problems: Problems Problem Status Onset Ascites Acute Bowel obstruction Acute Pneumatosis of intestines Acute Febrile illness Acute HIV (human immunodeficiency virus infection) Acute
[2016-12-30 14:39] LABS: HEMATOCRIT 24.3 % (40.0-51.0)
--- NOTE | 2016-12-30 15:11 | ASMTCMCOM ---
CM Note CM Note Notes: PT and OT both recommending SNF rehab at this time. Bedside RN states Pt. interested in SNF and OK with options outside [place]. Pt. has [place] Medicare insurance. SWer sent [employer] referrals to [facility], and [facility] [place]. If indicated, PASRR will need to be completed. CM to follow for d/c POC. Date Signed: 12/30/2016 03:10 PM Electronically Signed By:Kati Cruz LCSW
--- NOTE | 2016-12-30 15:16 | PCMIDPN ---
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 Ongoing therapy with ethambutol, rifabutin and azithromycin. Patient's symptoms appear to be mildly improved today. He is able to swallow oral medicines as well as eat a good deal of his liquid diet. Continues to have abdominal pain. Suspect there is an underlying component of iris to this presentation. At this point I do not think it is severe enough to warrant steroid initiation. Will continue to observe on current regimen. Cultures from procedure on 12/28 are still negative so far. Plan: 1. Continue coverage for MAC with ethambutol, rifabutin and azithromycin. 2. Continue anti-retroviral regimen. 3. Follow fever curve and symptoms. 12/30/16 15:16 Subjective: Patient is resting in his hospital bed. He is sleeping. He is easily awakened. Says his pain is controlled somewhat better over the last 24 hours. He has been able to swallow both food and medications. No reports of fevers or chills. Objective: RIF/ETH/AZITH boosted darunivir and Truvada Vital Signs Temp Pulse Resp BP Pulse Ox 37.5 C 95 16 119/89 H 95 12/30/16 14:41 12/30/16 14:41 12/30/16 14:41 12/30/16 14:41 12/30/16 14:41 Microbiology 12/28/16 15:36 Gram Stain - Final Abdomen - Tissue 12/28/16 15:36 Gram Stain - Final Abdomen - Eswab 12/28/16 15:36 Gram Stain - Final Abdomen - Eswab 12/28/16 15:36 Mycobacterial Smear (JERONIMO) - Final Abdomen - Tissue 12/28/16 15:36 Mycobacterial Smear (JERONIMO) - Final Abdomen - Eswab Laboratory Results 12/30/16 14:34 12/30/16 09:26 12/29/16 12/30/16 12/31/16 05:59 05:59 05:59 Intake Total 2700 1994 Output Total 325 1625 Balance 2375 370 - Physical Exam General Appearance: WD/WN, alert, no apparent distress, thin, non-toxic Respiratory: lungs clear, normal breath sounds, No respiratory distress Cardiac/Chest: regular rate, rhythm, No tachycardia Abdomen: soft, No non-tender, No mass Skin: normal color, warm/dry, No rash Neuro/Psych: alert, normal mood/affect, oriented x 3 ICD10 Worksheet Patient Problems: Problems Problem Status Onset Ascites Acute Bowel obstruction Acute Pneumatosis of intestines Acute Febrile illness Acute HIV (human immunodeficiency virus infection) Acute
--- NOTE | 2016-12-30 17:16 | HOSPPROG ---
Hospitalist Progress Note Assessment/Plan: Assessment: 41 yo M p/w acute small bowel obstruction in setting of HIV and prior intra- abdominal abscess Plan: 1. SBO. 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 Francois, hemodynamically stable, Tmax 100.1, Hgb stable 2. AIDS. Chronic, cont home ARV - dMAC tx continued 3. Neuropathy. Cont gabapentin once able to take PO 4. Neutropenia. ANC 1000, monitor CBC 5. Elevated blood pressure. Resolved post-op 6. Metabolic acidosis. Acute, 2/2 SBO and hypovolemia, resolved 7. Acute blood loss anemia. Hgb down to 7.5 this AM, repeat 8, cont to monitor, hold on transfusion at this time Diet. Clears PPx. High risk, SCDs, hold pharm given bleeding Code. Full Dispo. ADD uncertain Subjective: worse abd pain this afternoon, patient w/o BM/flatus Objective: Vital Signs Temp Pulse Resp BP Pulse Ox 37.6 C 93 18 109/89 H 95 12/30/16 16:00 12/30/16 16:00 12/30/16 16:00 12/30/16 16:00 12/30/16 16:00 Microbiology 12/28/16 15:36 Gram Stain - Final Abdomen - Tissue 12/28/16 15:36 Gram Stain - Final Abdomen - Eswab 12/28/16 15:36 Gram Stain - Final Abdomen - Eswab 12/28/16 15:36 Mycobacterial Smear (JERONIMO) - Final Abdomen - Tissue 12/28/16 15:36 Mycobacterial Smear (JERONIMO) - Final Abdomen - Eswab Laboratory Results 12/30/16 14:34 12/30/16 09:26 12/29/16 12/30/16 12/31/16 05:59 05:59 05:59 Intake Total 2700 1994 Output Total 325 1625 Balance 2375 370 - Physical Exam Constitutional: chronically ill appearing, uncomfortable, cachectic, No not in pain Cardiovascular: tachycardia, No systolic murmur, No irregularly irregular, No edema Respiratory: no respiratory distress, no rales or rhonchi, clear to auscultation Gastrointestinal: tenderness (mild to mod depth palpation), other (central abd incision), No normoactive bowel sounds (hypoactive bowel sounds), No guarding Skin: other (blood soaked bandage, no erythema/ecchymoses/induration around wound) Neurologic: AAOx3, sensation intact bilaterally, No facial droop Psychiatric: interacting appropriately, not anxious, not encephalopathic, thought process linear ICD10 Worksheet Patient Problems: Problems Problem Status Onset Ascites Acute Bowel obstruction Acute Pneumatosis of intestines Acute Febrile illness Acute HIV (human immunodeficiency virus infection) Acute
[2016-12-30] MEDS: ACETAMINOPHEN 325 MG TAB PO PRN (17:46)
[2016-12-31] MEDS: D5W 1/2 NS 1,000 ML IV SCH ×3 (00:57→23:23)
[2016-12-31 05:23] LABS: % IMMATURE GRANULYOCYTES 0.7 % (0.0-1.1); ABSOLUTE IMMATURE GRANULOCYTES 0.01 10^3/uL (0.00-0.10); ADD DIFF? NO; ADD MORPH? NO; ADD SCAN? NO; ATYPICAL LYMPHOCYTE FLAG 20 (0-99); FRAGMENT RBC FLAG 10 (0-99); HEMOGLOBIN 7.1 g/dL (13.7-17.5); LEFT SHIFT FLG 60 (0-99); LIPEMIA HEMOLYSIS FLAG 80 (0-99); MEAN CELL HEMOGLOBIN 32.1 pg (27.9-34.1); MEAN CELL HEMOGLOBIN CONCENTR. 32.3 g/dL (32.4-36.7); MEAN CELL VOLUME 99.5 fL (81.5-99.8); MEAN PLATELET VOLUME 9.9 fL (8.7-11.7); PLATELET CLUMPS FLAG 0 (0-99); PLATELET COUNT 96 10^3/uL (150-400); RED BLOOD CELL COUNT 2.21 10^6/uL (4.40-6.38)
[2016-12-31 05:41] LABS: ANION GAP 6 mEq/L (8-16); CALCIUM 8.3 mg/dL (8.5-10.4); CARBON DIOXIDE 22 mEq/l (22-31); CHLORIDE 105 mEq/L (97-110); CREATININE 0.9 mg/dL (0.7-1.3); GLOMERULAR FILTRATION RATE > 60; GLUCOSE 93 mg/dL (70-100); POTASSIUM 3.6 mEq/L (3.5-5.2); SODIUM 133 mEq/L (134-144)
[2016-12-31] MEDS: HYDROmorphONE/DILAUDID 6 MG/30 ML PCA IV PRN ×3 (06:43→20:18)
[2016-12-31] MEDS: AZITHROMYCIN 250 MG TAB PO SCH (09:18)
[2016-12-31] MEDS: RIFABUTIN 150 MG CAP PO SCH (09:18)
[2016-12-31] MEDS: DARUNAVIR ETHANOLATE 800 MG TAB PO SCH (09:18)
[2016-12-31] MEDS: EMTRICITABINE/TENOFOVIR 200MG/300MG TAB PO SCH (09:18)
[2016-12-31] MEDS: RITONAVIR 100 MG TAB PO SCH (09:18)
[2016-12-31] MEDS: GABAPENTIN 400 MG CAP PO SCH ×2 (09:19→20:18)
[2016-12-31] MEDS: ETHAMBUTOL HCL 400 MG TAB PO SCH (09:19)
[2016-12-31] MEDS: ONDANSETRON DISINTEGRATING 4 MG TAB PO PRN (09:35)
[2016-12-31 10:25] LABS: HEMATOCRIT 19.8 % (40.0-51.0)
[2016-12-31 10:27] LABS: HEMOGLOBIN 6.6 g/dL (13.7-17.5)
[2016-12-31 10:54] LABS: % SATURATION 9 % (20-55); TOTAL IRON BINDING CAPACITY 237 ug/dL (260-490)
[2016-12-31] MEDS ORDERED: PANTOPRAZOLE SODIUM 40 MG in NS 100 ML IV SCH (11:30)
--- NOTE | 2016-12-31 11:41 | HOSPPROG ---
Hospitalist Progress Note Assessment/Plan: 41-year-old with a and disseminated MAC/IRIS is admitted with small-bowel obstruction due to abscess. Cultures negative currently. Postop course complicated by acute on chronic anemia. # small-bowel obstruction likely due to disseminated MAC status post surgery. * Appreciate Infectious Disease consult * Continue broad-spectrum antibiotics * Awaiting cultures. # AIDS, CD4 equal 24 with low viral. * Continue antivirals * Holding PCP prophylaxis for now # disseminated MAC currently on rifabutin, ethambutol and Zithromax # lower extremity neuropathy awaiting EMG ease # Chronic anemia/neutropenia may be related to chronic dMAC. Past w/u: 10/10 bone marrow flow cytometric analysis of bone marrow biopsy showed no evidence of monoclonal T-cell population in conjunction with analysis of CD3, CD4 and CD7 ; markedly hypocellular marrow with scant trilineage hematopoiesis. Low haptoglobin, nl adrianne, CMV load negative, parvo Ab not suggestive of acute dz, PNH negative # acute anemia likely multifactorial due to some expected surgical blood loss, additionally patient has severe bone marrow suppression and hypo cellularity likely making it difficult for him to replace red blood cells. * Transfuse 2 units and continue to monitor her anemia # elevated blood pressure postop, resolved PPx. High risk, SCDs, hold pharm given bleeding Subjective: Patient new to al chart reviewed, discussed with Dr. Francois. Patient having ongoing abdominal pain has been able to take in clear liquids however. Objective: Vital Signs Temp Pulse Resp BP Pulse Ox 37.4 C 99 16 132/98 H 96 12/31/16 09:47 12/31/16 09:47 12/31/16 09:47 12/31/16 09:47 12/31/16 09:47 Microbiology 12/28/16 15:36 Gram Stain - Final Abdomen - Tissue 12/28/16 15:36 Gram Stain - Final Abdomen - Eswab 12/28/16 15:36 Gram Stain - Final Abdomen - Eswab Laboratory Results 12/31/16 10:10 12/31/16 04:45 12/30/16 12/31/16 01/01/17 05:59 05:59 05:59 Intake Total 1994 1445 1734 Output Total 1625 1050 80 Balance 808 643 9195 - Physical Exam Constitutional: uncomfortable, cachectic Eyes: PERRL, EOMI Cardiovascular: regular rate and rhythym Respiratory: no respiratory distress, clear to auscultation Gastrointestinal: tenderness, guarding, distension, other (Incision clean with some bleeding noted on bandages.), No normoactive bowel sounds Genitourinary: no bladder fullness Skin: warm Neurologic: AAOx3 Psychiatric: interacting appropriately ICD10 Worksheet Patient Problems: Problems Problem Status Onset Ascites Acute Bowel obstruction Acute Pneumatosis of intestines Acute Febrile illness Acute HIV (human immunodeficiency virus infection) Acute
[2016-12-31 13:31] LABS: INR 3.37 (0.83-1.16); PROTIME(PATIENT) 34.6 SEC (12.0-15.0)
[2016-12-31 13:33] LABS: APTT 89.3 SEC (23.0-38.0)
--- NOTE | 2016-12-31 14:29 | PCMIDPN ---
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 Ongoing therapy with ethambutol, rifabutin and azithromycin. Patient appears to have decreased hematocrit secondary to intra- abdominal bleeding. Increased coagulopathy looked at as the likely cause. Continues to have intermittent abdominal pain. Suspect there is an underlying component of IRIS to this presentation. Agree with coagulopathy correction as for step of management. In the meantime continue his regimen for both HIV and MAC. Plan: 1. Continue coverage for MAC with ethambutol, rifabutin and azithromycin. 2. Continue anti-retroviral regimen. 3. Follow fever curve and symptoms. Subjective: Patient is resting in his hospital bed. Relates continued intermittent abdominal discomfort. No fevers or chills. Objective: Vital Signs Temp Pulse Resp BP Pulse Ox 37.5 C 100 12 139/98 H 93 12/31/16 13:53 12/31/16 13:53 12/31/16 13:53 12/31/16 13:53 12/31/16 13:53 Microbiology 12/28/16 15:36 Gram Stain - Final Abdomen - Tissue 12/28/16 15:36 Gram Stain - Final Abdomen - Eswab 12/28/16 15:36 Gram Stain - Final Abdomen - Eswab Laboratory Results 12/31/16 10:10 12/31/16 04:45 12/30/16 12/31/16 01/01/17 05:59 05:59 05:59 Intake Total 1994 1445 1734 Output Total 1625 1050 80 Balance 753 067 6802 - Physical Exam General Appearance: WD/WN, alert, no apparent distress, thin, other ( Chronically ill-appearing) Respiratory: lungs clear, normal breath sounds, No respiratory distress Cardiac/Chest: regular rate, rhythm, No tachycardia Abdomen: soft, tender (Mildly global), No mass, No peritoneal signs Skin: normal color, warm/dry, No rash Neuro/Psych: alert, normal mood/affect, oriented x 3 ICD10 Worksheet Patient Problems: Problems Problem Status Onset Ascites Acute Bowel obstruction Acute Pneumatosis of intestines Acute Febrile illness Acute HIV (human immunodeficiency virus infection) Acute
[2016-12-31] MEDS ORDERED: PHYTONADIONE 10 MG in NS 50 ML IV ONE (14:51)
[2016-12-31] MEDS: ACETAMINOPHEN 325 MG TAB PO PRN (15:30)
[2016-12-31] MEDS ORDERED: PHYTONADIONE 2.5 MG/2.5 ML ORAL UDL PO SCH (16:00)
--- NOTE | 2016-12-31 16:10 | SOAPPROG ---
SOAP Progress Note Assessment/Plan: Assessment: Postop lysis of adhesions/doing okay/vital signs stable/afebrile/hematocrit 29/ Complains of incisional pain and NG irritation/urine output okay/NG minimal Abdomen soft with decreased bowel sounds/wound okay/chest clear Plan: We will switch to Dilaudid MANAGER PROGRAM 12/29/16 09:32 12/31/16 16:08 reasonably comfortable with stable vital signs/ wound okay but has been seeping some bloody fluid / abdomen soft with incisional tenderness Hematocrit drop down to 20 but coags are elevated with an INR greater than 3 and a PTT greater than 85 Will reverse coagulopathy before any decisions about surgery Objective: Vital Signs Temp Pulse Resp BP Pulse Ox 37.4 C 100 16 141/89 H 95 12/31/16 15:57 12/31/16 15:57 12/31/16 15:57 12/31/16 15:57 12/31/16 15:57 Microbiology 12/28/16 15:36 Gram Stain - Final Abdomen - Tissue 12/28/16 15:36 Gram Stain - Final Abdomen - Eswab 12/28/16 15:36 Gram Stain - Final Abdomen - Eswab Laboratory Results 12/31/16 10:10 12/31/16 04:45 12/30/16 12/31/16 01/01/17 05:59 05:59 05:59 Intake Total 1994 1445 1734 Output Total 1625 1050 80 Balance 830 632 6526 PT 34.6 SEC (12.0-15.0) H 12/31/16 13:00 INR 3.37 (0.83-1.16) H 12/31/16 13:00 ICD10 Worksheet Patient Problems: Problems Problem Status Onset Ascites Acute Bowel obstruction Acute Pneumatosis of intestines Acute Febrile illness Acute HIV (human immunodeficiency virus infection) Acute
[2017-01-01] MEDS: HYDROmorphONE/DILAUDID 6 MG/30 ML PCA IV PRN ×3 (03:55→20:23)
[2017-01-01 05:52] LABS: % IMMATURE GRANULYOCYTES 0.7 % (0.0-1.1); ABSOLUTE IMMATURE GRANULOCYTES 0.01 10^3/uL (0.00-0.10); ADD DIFF? NO; ADD MORPH? NO; ADD SCAN? NO; ATYPICAL LYMPHOCYTE FLAG 0 (0-99); FRAGMENT RBC FLAG 0 (0-99); HEMATOCRIT 24.5 % (40.0-51.0); HEMOGLOBIN 8.5 g/dL (13.7-17.5); LEFT SHIFT FLG 50 (0-99); LIPEMIA HEMOLYSIS FLAG 90 (0-99); MEAN CELL HEMOGLOBIN 32.3 pg (27.9-34.1); MEAN CELL HEMOGLOBIN CONCENTR. 34.7 g/dL (32.4-36.7); MEAN CELL VOLUME 93.2 fL (81.5-99.8); MEAN PLATELET VOLUME 10.4 fL (8.7-11.7); PLATELET CLUMPS FLAG 0 (0-99); PLATELET COUNT 83 10^3/uL (150-400); RED BLOOD CELL COUNT 2.63 10^6/uL (4.40-6.38)
[2017-01-01] MEDS: D5W 1/2 NS 1,000 ML IV SCH (06:03)
[2017-01-01 06:05] LABS: ANION GAP 5 mEq/L (8-16); CALCIUM 8.2 mg/dL (8.5-10.4); CARBON DIOXIDE 24 mEq/l (22-31); CHLORIDE 107 mEq/L (97-110); CREATININE 0.9 mg/dL (0.7-1.3); GLOMERULAR FILTRATION RATE > 60; GLUCOSE 85 mg/dL (70-100); POTASSIUM 3.2 mEq/L (3.5-5.2); SODIUM 136 mEq/L (134-144)
[2017-01-01] MEDS: PHYTONADIONE 2.5 MG/2.5 ML ORAL UDL PO SCH (09:57)
[2017-01-01] MEDS: ONDANSETRON DISINTEGRATING 4 MG TAB PO PRN ×2 (10:01→20:41)
[2017-01-01] MEDS: ETHAMBUTOL HCL 400 MG TAB PO SCH (10:04)
[2017-01-01] MEDS: PANTOPRAZOLE SODIUM 40 MG TAB PO SCH (10:04)
[2017-01-01] MEDS: GABAPENTIN 400 MG CAP PO SCH ×2 (10:05→20:42)
[2017-01-01] MEDS: AZITHROMYCIN 250 MG TAB PO SCH (10:05)
[2017-01-01 11:55] LABS: INR 1.25 (0.83-1.16); PROTIME(PATIENT) 15.7 SEC (12.0-15.0)
[2017-01-01 11:56] LABS: APTT 55.4 SEC (23.0-38.0)
[2017-01-01] MEDS: RIFABUTIN 150 MG CAP PO SCH (11:59)
[2017-01-01] MEDS: EMTRICITABINE/TENOFOVIR 200MG/300MG TAB PO SCH (11:59)
[2017-01-01] MEDS: DARUNAVIR ETHANOLATE 800 MG TAB PO SCH (11:59)
[2017-01-01] MEDS: RITONAVIR 100 MG TAB PO SCH (11:59)
--- NOTE | 2017-01-01 13:11 | SOAPPROG ---
SOAP Progress Note Assessment/Plan: Assessment: Postop lysis of adhesions/doing okay/vital signs stable/afebrile/hematocrit 29/ Complains of incisional pain and NG irritation/urine output okay/NG minimal Abdomen soft with decreased bowel sounds/wound okay/chest clear Plan: We will switch to Dilaudid PLANT OPERATOR HELPER 12/29/16 09:32 12/31/16 16:08 reasonably comfortable with stable vital signs/ wound okay but has been seeping some bloody fluid / abdomen soft with incisional tenderness Hematocrit drop down to 20 but coags are elevated with an INR greater than 3 and a PTT greater than 85 Will reverse coagulopathy before any decisions about surgery 01/01/17 13:10 LOW-GRADE TEMP/MUCH MORE COMFORTABLE TODAY/EATING WELL/POSITIVE BM AN FLATUS/ WOUND OKAY/NO FURTHER BLOODY OOZING/COAGS MUCH IMPROVED BUT NOT NORMAL YET Objective: Vital Signs Temp Pulse Resp BP Pulse Ox 37.6 C 86 12 133/93 H 95 01/01/17 12:00 01/01/17 12:00 01/01/17 12:00 01/01/17 12:00 01/01/17 12:00 Microbiology 12/28/16 15:36 Gram Stain - Final Abdomen - Tissue 12/28/16 15:36 Gram Stain - Final Abdomen - Eswab 12/28/16 15:36 Gram Stain - Final Abdomen - Eswab Laboratory Results 01/01/17 05:33 01/01/17 05:33 12/31/16 01/01/17 01/02/17 05:59 05:59 05:59 Intake Total 1445 7898 250 Output Total 1050 2255 750 Balance 395 5584 -500 PT 15.7 SEC (12.0-15.0) H D 01/01/17 11:31 INR 1.25 (0.83-1.16) H 01/01/17 11:31 ICD10 Worksheet Patient Problems: Problems Problem Status Onset Ascites Acute Bowel obstruction Acute Pneumatosis of intestines Acute Febrile illness Acute HIV (human immunodeficiency virus infection) Acute
--- NOTE | 2017-01-01 14:51 | HOSPPROG ---
Hospitalist Progress Note Assessment/Plan: 41-year-old with a and disseminated MAC/IRIS is admitted with small-bowel obstruction due to abscess. Cultures negative currently. Postop course complicated by acute on chronic anemia. Pain is much improved today. Continues to tolerate clear liquids. Had a fever this afternoon # small-bowel obstruction likely due to disseminated MAC status post surgery. * Appreciate Infectious Disease consult * Continue broad-spectrum antibiotics * Awaiting cultures. # AIDS, CD4 equal 24 with low viral. * Continue antivirals * Holding PCP prophylaxis for now # Fever: pt is minimally symptomatic and looks improved. Will follow for now. 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 K. Possibly secondary to severe vitamin K deficiency. * consider mixing study to rule out inhibitor as cause. * Continue to follow and continue vitamin K. 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 Past w/u: 10/10 bone marrow flow cytometric analysis of bone marrow biopsy showed no evidence of monoclonal T-cell population in conjunction with analysis of CD3, CD4 and CD7 ; markedly hypocellular marrow with scant trilineage hematopoiesis. Low haptoglobin, nl adrianne, CMV load negative, parvo Ab not suggestive of acute dz, PNH negative # acute anemia likely multifactorial due to some expected surgical blood loss, additionally patient has severe bone marrow suppression and hypo cellularity likely making it difficult for him to replace red blood cells. * Transfuse 2 units and continue to monitor her anemia # elevated blood pressure postop, resolved PPx. High risk, SCDs, hold pharm given bleeding Subjective: abdominal pain is better today, still quite tender on exam but looks much more comfortable. discussed with ID and surgery Objective: Vital Signs Temp Pulse Resp BP Pulse Ox 38.6 C H 84 12 127/88 H 96 01/01/17 14:00 01/01/17 14:00 01/01/17 14:00 01/01/17 14:00 01/01/17 14:00 Microbiology 12/28/16 15:36 Gram Stain - Final Abdomen - Tissue 12/28/16 15:36 Gram Stain - Final Abdomen - Eswab 12/28/16 15:36 Gram Stain - Final Abdomen - Eswab Laboratory Results 01/01/17 05:33 01/01/17 05:33 12/31/16 01/01/17 01/02/17 05:59 05:59 05:59 Intake Total 1445 7862 250 Output Total 1050 0275 750 Balance 395 5584 -500 PT 15.7 SEC (12.0-15.0) H D 01/01/17 11:31 INR 1.25 (0.83-1.16) H 01/01/17 11:31 - Physical Exam Constitutional: chronically ill appearing, uncomfortable Eyes: PERRL, EOMI Ears, Nose, Mouth, Throat: moist mucous membranes Cardiovascular: regular rate and rhythym, no murmur, rub, or gallop Respiratory: no respiratory distress, clear to auscultation Gastrointestinal: tenderness, distension, other, No normoactive bowel sounds Skin: warm Neurologic: AAOx3, No facial droop Psychiatric: interacting appropriately, not anxious ICD10 Worksheet Patient Problems: Problems Problem Status Onset Febrile illness Acute HIV (human immunodeficiency virus infection) Acute Bowel obstruction Acute Ascites Acute Pneumatosis of intestines Acute
--- NOTE | 2017-01-01 15:27 | ASMTCMCOM ---
CM Note CM Note Notes: [facility] and [facility] are considering for SNF d/c. Ctr at will do onsite visit tomorrow. [facility] has accepted pt. Date Signed: 01/01/2017 03:27 PM Electronically Signed By:TYRON Diaz
[2017-01-01] MEDS: ACETAMINOPHEN 325 MG TAB PO PRN (16:25)
--- NOTE | 2017-01-01 17:09 | PCMIDPN ---
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 Ongoing therapy with ethambutol, rifabutin and azithromycin. Patient appears to have decreased hematocrit secondary to intra- abdominal bleeding. Increased coagulopathy looked at as the likely cause. Continues to have intermittent abdominal pain. Suspect there is an underlying component of IRIS to this presentation. Coagulopathy correction appears to have stabilized his hematocrit. In the meantime continue his regimen for both HIV and MAC. Plan: 1. Continue coverage for MAC with ethambutol, rifabutin and azithromycin. 2. Continue anti-retroviral regimen. 3. Follow fever curve and symptoms. 01/01/17 17:06 Subjective: Patient is resting comfortably in his hospital bed. He has no new complaint. No fevers or chills. Abdominal pain mild to moderate and continual. Objective: Ethambutol/rifabutin/azithromycin Vital Signs Temp Pulse Resp BP Pulse Ox 38.6 C H 93 14 135/91 H 93 01/01/17 14:00 01/01/17 16:00 01/01/17 16:00 01/01/17 16:00 01/01/17 16:00 Microbiology 12/28/16 15:36 Gram Stain - Final Abdomen - Tissue 12/28/16 15:36 Gram Stain - Final Abdomen - Eswab 12/28/16 15:36 Gram Stain - Final Abdomen - Eswab Laboratory Results 01/01/17 05:33 01/01/17 05:33 12/31/16 01/01/17 01/02/17 05:59 05:59 05:59 Intake Total 1445 7839 250 Output Total 1050 2255 750 Balance 395 5584 -500 - Physical Exam General Appearance: WD/WN, alert, no apparent distress, thin, non-toxic Respiratory: lungs clear, normal breath sounds, No respiratory distress Cardiac/Chest: regular rate, rhythm, No tachycardia Abdomen: soft, No non-tender, No mass Skin: normal color, warm/dry, No rash Neuro/Psych: alert, normal mood/affect ICD10 Worksheet Patient Problems: Problems Problem Status Onset Ascites Acute Bowel obstruction Acute Pneumatosis of intestines Acute Febrile illness Acute HIV (human immunodeficiency virus infection) Acute
[2017-01-02] MEDS: D5W 1/2 NS 1,000 ML IV SCH (00:25)
[2017-01-02 05:32] LABS: ADD DIFF? NO; ADD MORPH? NO; ADD SCAN? NO; ATYPICAL LYMPHOCYTE FLAG 0 (0-99); FRAGMENT RBC FLAG 0 (0-99); HEMATOCRIT 23.4 % (40.0-51.0); HEMOGLOBIN 8.1 g/dL (13.7-17.5); LEFT SHIFT FLG 20 (0-99); LIPEMIA HEMOLYSIS FLAG 90 (0-99); MEAN CELL HEMOGLOBIN CONCENTR. 34.6 g/dL (32.4-36.7); MEAN CELL VOLUME 92.5 fL (81.5-99.8); MEAN PLATELET VOLUME 9.7 fL (8.7-11.7); PLATELET CLUMPS FLAG 10 (0-99); PLATELET COUNT 81 10^3/uL (150-400); RED BLOOD CELL COUNT 2.53 10^6/uL (4.40-6.38); RED CELL DISTRIBUTION WIDTH 15.9 % (11.5-15.2)
[2017-01-02 05:41] LABS: INR 1.32 (0.83-1.16); PROTIME(PATIENT) 16.4 SEC (12.0-15.0)
[2017-01-02 05:42] LABS: APTT 57.9 SEC (23.0-38.0)
[2017-01-02 06:00] LABS: ALANINE AMINOTRANSFERASE 29 IU/L (21-72); ALBUMIN 2.3 g/dL (3.5-5.0); ALKALINE PHOSPHATASE 48 IU/L (38-126); ANION GAP 8 mEq/L (8-16); ASPARTATE AMINOTRANSFERASE 34 IU/L (17-59); BILIRUBIN,TOTAL 1.6 mg/dL (0.1-1.4); CALCIUM 7.6 mg/dL (8.5-10.4); CARBON DIOXIDE 23 mEq/l (22-31); CHLORIDE 107 mEq/L (97-110); CREATININE 0.9 mg/dL (0.7-1.3); GLOMERULAR FILTRATION RATE > 60; GLUCOSE 72 mg/dL (70-100); POTASSIUM 3.1 mEq/L (3.5-5.2); SODIUM 138 mEq/L (134-144)
[2017-01-02] MEDS: HYDROmorphONE/DILAUDID 6 MG/30 ML PCA IV PRN ×3 (06:36→21:46)
[2017-01-02] MEDS: ONDANSETRON DISINTEGRATING 4 MG TAB PO PRN (09:20)
[2017-01-02] MEDS: DARUNAVIR ETHANOLATE 800 MG TAB PO SCH (10:00)
[2017-01-02] MEDS: AZITHROMYCIN 250 MG TAB PO SCH (10:00)
[2017-01-02] MEDS: ETHAMBUTOL HCL 400 MG TAB PO SCH (10:00)
[2017-01-02] MEDS: GABAPENTIN 400 MG CAP PO SCH ×2 (10:01→20:24)
[2017-01-02] MEDS: PANTOPRAZOLE SODIUM 40 MG TAB PO SCH (10:01)
[2017-01-02] MEDS: PHYTONADIONE 2.5 MG/2.5 ML ORAL UDL PO SCH (10:32)
[2017-01-02] MEDS: RITONAVIR 100 MG TAB PO SCH (10:32)
[2017-01-02] MEDS: RIFABUTIN 150 MG CAP PO SCH (10:32)
[2017-01-02] MEDS: EMTRICITABINE/TENOFOVIR 200MG/300MG TAB PO SCH (10:32)
--- NOTE | 2017-01-02 10:44 | SOAPPROG ---
SOAP Progress Note Assessment/Plan: Assessment: 41 yo M with hx of HIV now POD #5 s/p exploratory laparotomy and lysis of adhesions. Regular diet INR still high at 1.3 today Micro/path pending Continue pain control PT/OT Dressing changes PRN Appreciate hospitalists Appreciate ID S: Pain controlled. One episode of nausea with vomiting last night. Tolerated clears for breakfast this morning and eager to have regular diet. Passing flatus and having bowel movements. O: Low grade temp Sitting in chair, NAD MMM Belly soft, tender over incision site, dressing c/d, + BS Objective: Vital Signs Temp Pulse Resp BP Pulse Ox 37.4 C 73 16 131/94 H 96 01/02/17 10:00 01/02/17 10:00 01/02/17 10:00 01/02/17 10:00 01/02/17 10:00 Microbiology 12/28/16 15:36 Gram Stain - Final Abdomen - Tissue 12/28/16 15:36 Gram Stain - Final Abdomen - Eswab 12/28/16 15:36 Gram Stain - Final Abdomen - Eswab Laboratory Results 01/02/17 04:35 01/02/17 04:35 01/01/17 01/02/17 01/03/17 05:59 05:59 05:59 Intake Total 7839 3330 Output Total 2255 3650 400 Balance 5584 -320 -400 PT 16.4 SEC (12.0-15.0) H 01/02/17 04:35 INR 1.32 (0.83-1.16) H 01/02/17 04:35 ICD10 Worksheet Patient Problems: Problems Problem Status Onset Ascites Acute Bowel obstruction Acute Pneumatosis of intestines Acute Febrile illness Acute HIV (human immunodeficiency virus infection) Acute
--- NOTE | 2017-01-02 11:19 | HOSPPROG ---
Hospitalist Progress Note Assessment/Plan: 41-year-old with a and disseminated MAC/IRIS is admitted with small-bowel obstruction due to abscess. Cultures negative currently. Postop course complicated by acute on chronic anemia. Pain is much improved today. Continues to tolerate clear liquids. Had a fever yesterday # small-bowel obstruction likely due to disseminated MAC status post surgery. * Appreciate Infectious Disease consult * Continue broad-spectrum antibiotics * Awaiting cultures. # AIDS, CD4 equal 24 with low viral. * Continue antivirals * Holding PCP prophylaxis for now # Fever: Patient is clinically improving. Discussed with Dr. Manzo. * Consider adding steroids for IRIS if fevers recur. * Monitor for now # disseminated MAC currently on rifabutin, ethambutol and Zithromax # Coagulopathy with elevated PT and PTT, improved with vit. K. Possibly secondary to severe vitamin K deficiency. * consider mixing study to rule out inhibitor as cause. * Continue to follow and continue vitamin K. * no history of clots to suggest anticardiolipin ab. 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 Past w/u: 10/10 bone marrow flow cytometric analysis of bone marrow biopsy showed no evidence of monoclonal T-cell population in conjunction with analysis of CD3, CD4 and CD7 ; markedly hypocellular marrow with scant trilineage hematopoiesis. Low haptoglobin, nl adrianne, CMV load negative, parvo Ab not suggestive of acute dz, PNH negative # acute anemia likely multifactorial due to some expected surgical blood loss, additionally patient has severe bone marrow suppression and hypo cellularity likely making it difficult for him to replace red blood cells. * Transfuse 2 units and continue to monitor her anemia # elevated blood pressure postop, resolved PPx. High risk, SCDs, hold pharm given bleeding Subjective: Feeling better abdominal pain persists. Objective: Vital Signs Temp Pulse Resp BP Pulse Ox 37.4 C 73 16 131/94 H 96 01/02/17 10:00 01/02/17 10:00 01/02/17 10:00 01/02/17 10:00 01/02/17 10:00 Microbiology 12/28/16 15:36 Gram Stain - Final Abdomen - Tissue 12/28/16 15:36 Gram Stain - Final Abdomen - Eswab 12/28/16 15:36 Gram Stain - Final Abdomen - Eswab Laboratory Results 01/02/17 04:35 01/02/17 04:35 01/01/17 01/02/17 01/03/17 05:59 05:59 05:59 Intake Total 7839 3330 Output Total 2257 3727 400 Balance 5584 -320 -400 PT 16.4 SEC (12.0-15.0) H 01/02/17 04:35 INR 1.32 (0.83-1.16) H 01/02/17 04:35 - Physical Exam Constitutional: no apparent distress Eyes: PERRL, EOMI Ears, Nose, Mouth, Throat: moist mucous membranes Cardiovascular: regular rate and rhythym, no murmur, rub, or gallop Respiratory: no respiratory distress, no rales or rhonchi Gastrointestinal: normoactive bowel sounds, tenderness, distension Skin: warm Neurologic: AAOx3, other (Neuropathy present) Psychiatric: interacting appropriately, not anxious, not encephalopathic ICD10 Worksheet Patient Problems: Problems Problem Status Onset Febrile illness Acute HIV (human immunodeficiency virus infection) Acute Bowel obstruction Acute Ascites Acute Pneumatosis of intestines Acute
--- NOTE | 2017-01-02 13:29 | PCMIDPN ---
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 AFB cultures are pending. Continue antibiotics targeting MAC. If has persistent inflammatory findings such as fever, think will likely require addition of steroids for control of IRIS. * AIDS: Continue antiretrovirals. 01/02/17 13:25 01/02/17 13:32 Subjective: Patient with mild postoperative abdominal pain. Objective: Vital Signs Temp Pulse Resp BP Pulse Ox 37.4 C 80 16 124/86 H 94 01/02/17 12:00 01/02/17 12:00 01/02/17 12:00 01/02/17 12:00 01/02/17 12:00 Microbiology 12/28/16 15:36 Gram Stain - Final Abdomen - Tissue Anaerobic Culture - Final 12/28/16 15:36 Gram Stain - Final Abdomen - Eswab 12/28/16 15:36 Gram Stain - Final Abdomen - Eswab Laboratory Results 01/02/17 04:35 01/02/17 04:35 01/01/17 01/02/17 01/03/17 05:59 05:59 05:59 Intake Total 7839 3330 Output Total 2255 3650 1000 Balance 5584 -320 -1000 Azithromycin/rifabutin/ethambutol Ritonavir/darunavir/Truvada Tm 38.6 - Physical Exam General Appearance: alert, no apparent distress EENT: No scleral icterus, No thrush Respiratory: lungs clear, No respiratory distress Cardiac/Chest: regular rate, rhythm Abdomen: non-tender, other (Incision with intact staple line; no erythema or drainage), No distended ICD10 Worksheet Patient Problems: Problems Problem Status Onset Ascites Acute Bowel obstruction Acute Pneumatosis of intestines Acute Febrile illness Acute HIV (human immunodeficiency virus infection) Acute
--- NOTE | 2017-01-02 13:56 | ASMTCMCOM ---
CM Note CM Note Notes: CM met w/ pt for dispo planning. Pt is interested in going to [facility] because there is fci care attached to that facility. 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 Qian in this AM to meet w/ pt. Pt continues to be on clear liquids at this time. CM to follow. Date Signed: 01/02/2017 01:55 PM Electronically Signed By:DINA Mckinnon
[2017-01-03] MEDS: HYDROmorphONE/DILAUDID 6 MG/30 ML PCA IV PRN ×3 (04:26→23:20)
[2017-01-03 04:48] LABS: HEMATOCRIT 22.9 % (40.0-51.0); MEAN CELL HEMOGLOBIN CONCENTR. 34.9 g/dL (32.4-36.7); MEAN CELL VOLUME 91.6 fL (81.5-99.8); RED BLOOD CELL COUNT 2.5 10^6/uL (4.40-6.38); RED CELL DISTRIBUTION WIDTH 15.3 % (11.5-15.2)
[2017-01-03 05:16] LABS: ANION GAP 6 mEq/L (8-16); CALCIUM 7.5 mg/dL (8.5-10.4); CARBON DIOXIDE 23 mEq/l (22-31); CHLORIDE 106 mEq/L (97-110); GLOMERULAR FILTRATION RATE > 60; GLUCOSE 81 mg/dL (70-100); POTASSIUM 3.2 mEq/L (3.5-5.2); SODIUM 135 mEq/L (134-144)
[2017-01-03] MEDS: PROMETHAZINE HCL 25 MG/ML INJ IVP PRN (08:59)
[2017-01-03] MEDS: RITONAVIR 100 MG TAB PO SCH (09:28)
[2017-01-03] MEDS: EMTRICITABINE/TENOFOVIR 200MG/300MG TAB PO SCH (09:28)
[2017-01-03] MEDS: DARUNAVIR ETHANOLATE 800 MG TAB PO SCH (09:29)
[2017-01-03] MEDS: PANTOPRAZOLE SODIUM 40 MG TAB PO SCH (09:29)
[2017-01-03] MEDS: AZITHROMYCIN 250 MG TAB PO SCH (09:30)
[2017-01-03] MEDS: GABAPENTIN 400 MG CAP PO SCH ×2 (10:37→19:47)
[2017-01-03] MEDS: RIFABUTIN 150 MG CAP PO SCH (10:38)
[2017-01-03] MEDS: ETHAMBUTOL HCL 400 MG TAB PO SCH (10:38)
[2017-01-03] MEDS: PHYTONADIONE 2.5 MG/2.5 ML ORAL UDL PO SCH (10:39)
--- NOTE | 2017-01-03 15:12 | HOSPPROG ---
Hospitalist Progress Note Assessment/Plan: 41-year-old with a and disseminated MAC/IRIS is admitted with small-bowel obstruction due to abscess. Cultures negative currently. Postop course complicated by acute on chronic anemia. Pain is a little worse today but tolerating a regular diet. No BM today. # small-bowel obstruction likely due to disseminated MAC status post surgery. * Appreciate Infectious Disease consult * cultures unremarkable, on abx for MAC and antiretrovirals. # AIDS, CD4 equal 24 with low viral. * Continue antivirals * Holding PCP prophylaxis for now # Fever on 01/01, none since: Patient is clinically improving. Discussed with Dr. Manzo. * Consider adding steroids for IRIS if fevers recur. * Monitor for now # disseminated MAC currently on rifabutin, ethambutol and Zithromax # Coagulopathy with elevated PT and PTT, improved with vit. K. Possibly secondary to severe vitamin K deficiency. * consider mixing study to rule out inhibitor as cause. * Continue to follow and continue vitamin K. * no history of clots to suggest anticardiolipin ab. * Oozing from wound has stopped. 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 Past w/u: 10/10 bone marrow flow cytometric analysis of bone marrow biopsy showed no evidence of monoclonal T-cell population in conjunction with analysis of CD3, CD4 and CD7 ; markedly hypocellular marrow with scant trilineage hematopoiesis. Low haptoglobin, nl adrianne, CMV load negative, parvo Ab not suggestive of acute dz, PNH negative # acute anemia likely multifactorial due to some expected surgical blood loss, additionally patient has severe bone marrow suppression and hypo cellularity likely making it difficult for him to replace red blood cells. * Transfuse 2 units and continue to monitor her anemia. # elevated blood pressure postop, resolved PPx. High risk, SCDs, hold pharm given bleeding Dispo: Getting close to [place], would need to make sure his abdominal issues continue to improve and he tolerates regular diet.. Dr. Alberto will see today and determine if he needs steroids to treat IRIS. Plan is to transfer to [facility] at discharge. May be ready soon. Subjective: complains of some abdominal pain, difficult to tell if it's a lot worse or not. Objective: Vital Signs Temp Pulse Resp BP Pulse Ox 37.3 C 76 18 140/90 H 96 01/03/17 14:00 01/03/17 14:00 01/03/17 14:00 01/03/17 14:00 01/03/17 14:00 Microbiology 12/28/16 15:36 Gram Stain - Final Abdomen - Tissue 12/28/16 15:36 Gram Stain - Final Abdomen - Eswab 12/28/16 15:36 Gram Stain - Final Abdomen - Eswab 12/28/16 15:36 Mycobacterial Smear (JERONIMO) - Final Abdomen - Eswab 12/28/16 15:36 Mycobacterial Smear (JERONIMO) - Final Abdomen - Tissue Laboratory Results 01/03/17 04:32 01/03/17 04:32 01/02/17 01/03/17 01/04/17 05:59 05:59 05:59 Intake Total 3330 650 Output Total 3650 2000 950 Balance -320 -1350 -950 PT 16.4 SEC (12.0-15.0) H 01/02/17 04:35 INR 1.32 (0.83-1.16) H 01/02/17 04:35 - Physical Exam Constitutional: chronically ill appearing, uncomfortable, cachectic Cardiovascular: regular rate and rhythym Respiratory: no respiratory distress Gastrointestinal: No normoactive bowel sounds (decreased but present) Skin: warm Neurologic: AAOx3 Psychiatric: flat affect, other (poor eye contact) ICD10 Worksheet Patient Problems: Problems Problem Status Onset Ascites Acute Bowel obstruction Acute Pneumatosis of intestines Acute Febrile illness Acute HIV (human immunodeficiency virus infection) Acute
--- NOTE | 2017-01-03 17:31 | PCMIDPN ---
Assessment/Plan: #SBO due to abscess likely due to dMAC/IRIS s/p surgery. Cx remain negative. + flatus today but still some abdominal distension. Suspect low grade temp may be due to IRIS to dMAC --will start prednisone for possible component of IRIS. Selected lower dose at 40mg due to interaction with ritonavir increasing prednisone levels. Tentatively plan taper over 4ish weeks. 40x 5days, [id number], 20x5 days, 10x 5 days, 5x 5 days --continue MAC therapy --will continue to monitor #AIDS CD4=24 (16%) with very low VL (29, essentially viral suppression): --continue DRV/r/TDF/FTC --hold off on PCP ppx for now, had planned start of Mepron but will hold off with GI side effect #dMAC --continue rifabutin/ethambutol/azitho. 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 Past w/u: 10/10 bone marrow flow cytometric analysis of bone marrow biopsy showed no evidence of monoclonal T-cell population in conjunction with analysis of CD3, CD4 and CD7 ; markedly hypocellular marrow with scant trilineage hematopoiesis. Low haptoglobin, nl adrianne, CMV load negative, parvo Ab not suggestive of acute dz, PNH negative --review results with hematology Subjective: patient c/o abdominal pain , but better +flatus Objective: Vital Signs Temp Pulse Resp BP Pulse Ox 37.4 C 90 16 114/75 95 01/03/17 16:00 01/03/17 16:00 01/03/17 16:00 01/03/17 16:00 01/03/17 16:00 Microbiology 12/28/16 15:36 Gram Stain - Final Abdomen - Tissue 12/28/16 15:36 Gram Stain - Final Abdomen - Eswab 12/28/16 15:36 Gram Stain - Final Abdomen - Eswab 12/28/16 15:36 Mycobacterial Smear (JERONIMO) - Final Abdomen - Eswab 12/28/16 15:36 Mycobacterial Smear (JERONIMO) - Final Abdomen - Tissue Laboratory Results 01/03/17 04:32 01/03/17 04:32 01/02/17 01/03/17 01/04/17 05:59 05:59 05:59 Intake Total 3330 650 Output Total 3101 1999 538 Balance -320 -1350 -950 - Physical Exam General Appearance: alert, no apparent distress, thin Respiratory: No accessory muscle use Abdomen: non-tender, soft, distended Skin: No rash Neuro/Psych: alert, depressed affect ICD10 Worksheet Patient Problems: Problems Problem Status Onset Ascites Acute Bowel obstruction Acute Pneumatosis of intestines Acute Febrile illness Acute HIV (human immunodeficiency virus infection) Acute
--- NOTE | 2017-01-03 17:55 | SOAPPROG ---
SOAP Progress Note Assessment/Plan: Assessment: Postop lysis of adhesions/doing okay/vital signs stable/afebrile/hematocrit 29/ Complains of incisional pain and NG irritation/urine output okay/NG minimal Abdomen soft with decreased bowel sounds/wound okay/chest clear Plan: We will switch to Dilaudid MANAGER BABY 12/29/16 09:32 12/31/16 16:08 reasonably comfortable with stable vital signs/ wound okay but has been seeping some bloody fluid / abdomen soft with incisional tenderness Hematocrit drop down to 20 but coags are elevated with an INR greater than 3 and a PTT greater than 85 Will reverse coagulopathy before any decisions about surgery 01/01/17 13:10 LOW-GRADE TEMP/MUCH MORE COMFORTABLE TODAY/EATING WELL/POSITIVE BM AN FLATUS/ WOUND OKAY/NO FURTHER BLOODY OOZING/COAGS MUCH IMPROVED BUT NOT NORMAL YET 01/03/17 17:53 LOW GRADE TEMP/ WOUND OK/ ABD SOFT/ EATING BETTER/ SOME DIARHEA Objective: Vital Signs Temp Pulse Resp BP Pulse Ox 37.4 C 90 16 114/75 95 01/03/17 16:00 01/03/17 16:00 01/03/17 16:00 01/03/17 16:00 01/03/17 16:00 Microbiology 12/28/16 15:36 Gram Stain - Final Abdomen - Tissue 12/28/16 15:36 Gram Stain - Final Abdomen - Eswab 12/28/16 15:36 Gram Stain - Final Abdomen - Eswab 12/28/16 15:36 Mycobacterial Smear (JERONIMO) - Final Abdomen - Eswab 12/28/16 15:36 Mycobacterial Smear (JERONIMO) - Final Abdomen - Tissue Laboratory Results 01/03/17 04:32 01/03/17 04:32 01/02/17 01/03/17 01/04/17 05:59 05:59 05:59 Intake Total 3330 650 Output Total 3650 2000 950 Balance -320 -1350 -950 PT 16.4 SEC (12.0-15.0) H 01/02/17 04:35 INR 1.32 (0.83-1.16) H 01/02/17 04:35 ICD10 Worksheet Patient Problems: Problems Problem Status Onset Ascites Acute Bowel obstruction Acute Pneumatosis of intestines Acute Febrile illness Acute HIV (human immunodeficiency virus infection) Acute
[2017-01-03] MEDS: predniSONE 20 MG TAB PO SCH (18:34)
[2017-01-04 07:24] LABS: PTT 1:1 NORMAL PLASMA 32 sec (26 - 36); THROMBIN TIME 21 sec (15 - 23)
--- NOTE | 2017-01-04 08:59 | SOAPPROG ---
SOAP Progress Note Assessment/Plan: Assessment: 41 yo M with hx of HIV s/p exploratory laparotomy and lysis of adhesions. Regular diet Continue pain control PT/OT Dressing changes PRN Appreciate hospitalists Appreciate ID S: Pain controlled. Tolerating regular diet. Had BM last night, passing flatus. Denies N/V. O: Afebrile Lying in bed, NAD MMM No increased WOB Belly soft, tender over incision site, incision c/d/i with lion, + BS Objective: Vital Signs Temp Pulse Resp BP Pulse Ox 36.3 C 82 12 141/101 H 98 01/04/17 08:00 01/04/17 08:00 01/04/17 08:00 01/04/17 08:00 01/04/17 08:00 Microbiology 12/28/16 15:36 Gram Stain - Final Abdomen - Tissue 12/28/16 15:36 Gram Stain - Final Abdomen - Eswab 12/28/16 15:36 Gram Stain - Final Abdomen - Eswab 12/28/16 15:36 Mycobacterial Smear (JERONIMO) - Final Abdomen - Eswab 12/28/16 15:36 Mycobacterial Smear (JERONIMO) - Final Abdomen - Tissue Laboratory Results 01/03/17 04:32 01/03/17 04:32 01/03/17 01/04/17 01/05/17 05:59 05:59 05:59 Intake Total 650 500 800 Output Total 2000 1155 500 Balance -1350 -655 300 PT 16.4 SEC (12.0-15.0) H 01/02/17 04:35 INR 1.32 (0.83-1.16) H 01/02/17 04:35 ICD10 Worksheet Patient Problems: Problems Problem Status Onset Ascites Acute Bowel obstruction Acute Pneumatosis of intestines Acute Febrile illness Acute HIV (human immunodeficiency virus infection) Acute
[2017-01-04 09:13] LABS: FACTOR IX ACTIVITY 43 % (65 - 140); FACTOR VIII ACTIVITY 160 % (55 - 200); FACTOR XI ACTIVITY 31 % (55 - 150); FACTOR XII ACTIVITY 59 % (55 - 180)
[2017-01-04] MEDS: ONDANSETRON DISINTEGRATING 4 MG TAB PO PRN (10:05)
[2017-01-04] MEDS: predniSONE 20 MG TAB PO SCH (10:12)
[2017-01-04] MEDS: AZITHROMYCIN 250 MG TAB PO SCH (10:12)
[2017-01-04] MEDS: ETHAMBUTOL HCL 400 MG TAB PO SCH (10:12)
[2017-01-04] MEDS: RIFABUTIN 150 MG CAP PO SCH (10:13)
[2017-01-04] MEDS: PANTOPRAZOLE SODIUM 40 MG TAB PO SCH (10:14)
[2017-01-04] MEDS: GABAPENTIN 400 MG CAP PO SCH ×2 (10:15→19:41)
[2017-01-04] MEDS: DARUNAVIR ETHANOLATE 800 MG TAB PO SCH (10:15)
[2017-01-04] MEDS: EMTRICITABINE/TENOFOVIR 200MG/300MG TAB PO SCH (10:15)
[2017-01-04] MEDS: RITONAVIR 100 MG TAB PO SCH (10:16)
[2017-01-04] MEDS: PHYTONADIONE 2.5 MG/2.5 ML ORAL UDL PO SCH (10:16)
--- NOTE | 2017-01-04 12:18 | HOSPPROG ---
Hospitalist Progress Note Assessment/Plan: First encounter with this patient. 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 Cultures negative currently. Postop course complicated by acute on chronic anemia. 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 Does not want any modification to this at this time. Prednisone started 01/03 for IRIS. No further fever. Tolerating a regular diet. # small-bowel obstruction likely due to disseminated MAC status post surgery. * Appreciate Infectious Disease consult * cultures unremarkable, on abx for MAC and antiretrovirals. # AIDS, CD4 equal 24 with low viral. * Continue antivirals * Holding PCP prophylaxis for now # Fever on 01/01, none since: Patient is clinically improving. ? due to IRIS. Now on steroids * Cont Prednisone with taper per ID # Acute Pain Syndrome. 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 Etiology ? multifactorial. Will need to start weaning or transition off. He is tolerating a regular diet. Will discuss with him again tomorrow. 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 K. Possibly secondary to severe vitamin K deficiency. * consider mixing study to rule out inhibitor as cause. * Continue to follow and continue vitamin K. * no history of clots to suggest anticardiolipin ab. * Oozing from wound has stopped. 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 Past w/u: 10/10 bone marrow flow cytometric analysis of bone marrow biopsy showed no evidence of monoclonal T-cell population in conjunction with analysis of CD3, CD4 and CD7 ; markedly hypocellular marrow with scant trilineage hematopoiesis. Low haptoglobin, nl adrianne, CMV load negative, parvo Ab not suggestive of acute dz, PNH negative # acute anemia likely multifactorial due to some expected surgical blood loss, additionally patient has severe bone marrow suppression and hypo cellularity likely making it difficult for him to replace red blood cells. * Transfuse 2 units and continue to monitor her anemia. * No indication for repeat transfusion # elevated blood pressure postop, resolved # Generalized Weakness: Cont with PT/OT. # Hypokalemia: replace PRN PPx. High risk, SCDs, hold pharm given bleeding Dispo: Now tolerating a regular diet. 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 Plan is to transfer to [facility] at discharge. Subjective: Still with abd pain. Tolerating a regular diet. + BM. Objective: Vital Signs Temp Pulse Resp BP Pulse Ox 36.6 C 67 12 119/83 H 96 01/04/17 11:55 01/04/17 11:55 01/04/17 11:55 01/04/17 11:55 01/04/17 11:55 Microbiology 12/28/16 15:36 Gram Stain - Final Abdomen - Tissue 12/28/16 15:36 Gram Stain - Final Abdomen - Eswab 12/28/16 15:36 Gram Stain - Final Abdomen - Eswab 12/28/16 15:36 Mycobacterial Smear (JERNOIMO) - Final Abdomen - Eswab 12/28/16 15:36 Mycobacterial Smear (JERONIMO) - Final Abdomen - Tissue Laboratory Results 01/03/17 04:32 01/03/17 04:32 01/03/17 01/04/17 01/05/17 05:59 05:59 05:59 Intake Total 650 500 800 Output Total 2000 1155 500 Balance -1350 -655 300 PT 16.4 SEC (12.0-15.0) H 01/02/17 04:35 INR 1.32 (0.83-1.16) H 01/02/17 04:35 - Physical Exam Constitutional: chronically ill appearing Eyes: PERRL, anicteric sclera Ears, Nose, Mouth, Throat: moist mucous membranes, hearing normal Cardiovascular: regular rate and rhythym, no murmur, rub, or gallop, No irregularly irregular Respiratory: no respiratory distress, no rales or rhonchi, clear to auscultation Gastrointestinal: soft, non-tender abdomen, other (incision: lion in place, c /d/i) Skin: warm Neurologic: AAOx3 Psychiatric: interacting appropriately, not anxious, not encephalopathic ICD10 Worksheet Patient Problems: Problems Problem Status Onset Ascites Acute Bowel obstruction Acute Pneumatosis of intestines Acute Febrile illness Acute HIV (human immunodeficiency virus infection) Acute
[2017-01-04] MEDS ORDERED: PROTOCOL POTASSIUM 1 DOSE MISC PRN (12:52)
[2017-01-04] MEDS ORDERED: PROTOCOL MAGNESIUM 1 DOSE IV PRN (12:52)
--- NOTE | 2017-01-04 13:57 | PCMIDPN ---
Assessment/Plan: #SBO due to abscess likely due to dMAC/IRIS s/p surgery. Cx remain negative. Now has return of bowel function post op and less pain. Steroids started 01/03 for concern of IRIS to dMAC, no further low grade temps since starting steroids. --will start prednisone for possible component of IRIS. Selected lower dose at 40mg due to interaction with ritonavir increasing prednisone levels. Tentatively plan taper over 4ish weeks. 40x 5days, 60f1suul, 20x5 days, 10x 5 days, 5x 5 days --continue MAC therapy --will continue to monitor #AIDS CD4=24 (16%) with very low VL (29, essentially viral suppression): --continue DRV/r/TDF/FTC --discuss PCP ppx with him tomorrow. Previously bactrim stopped for possible bone marrow suppression, but no improvement after off meds for several months, consider resuming Bactrim SS daily vs Mepron - which unfortunately has some GI side effects #dMAC --continue rifabutin/ethambutol/azitho. 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 Past w/u: 10/10 bone marrow flow cytometric analysis of bone marrow biopsy showed no evidence of monoclonal T-cell population in conjunction with analysis of CD3, CD4 and CD7 ; markedly hypocellular marrow with scant trilineage hematopoiesis. Low haptoglobin, nl adrianne, CMV load negative, parvo Ab not suggestive of acute dz, PNH negative --review results with hematology Subjective: patient expressing reluctance about going to SNF now abdominal pain better BM last night very tired today Objective: Vital Signs Temp Pulse Resp BP Pulse Ox 36.6 C 67 12 119/83 H 96 01/04/17 11:55 01/04/17 11:55 01/04/17 11:55 01/04/17 11:55 01/04/17 11:55 Microbiology 12/28/16 15:36 Gram Stain - Final Abdomen - Tissue Anaerobic Culture - Final 12/28/16 15:36 Gram Stain - Final Abdomen - Eswab Anaerobic Culture - Final 12/28/16 15:36 Gram Stain - Final Abdomen - Eswab Anaerobic Culture - Final 12/28/16 15:36 Mycobacterial Smear (JERONIMO) - Final Abdomen - Eswab 12/28/16 15:36 Mycobacterial Smear (JERONIMO) - Final Abdomen - Tissue Laboratory Results 01/03/17 04:32 01/03/17 04:32 01/03/17 01/04/17 01/05/17 05:59 05:59 05:59 Intake Total 650 500 800 Output Total 1999 1155 500 Balance -1350 -655 300 - Physical Exam General Appearance: alert, no apparent distress, thin EENT: pale conjunctiva Respiratory: lungs clear, No accessory muscle use Neck: full range of motion Cardiac/Chest: regular rate, rhythm Abdomen: non-tender, soft, distended (slight), other (midline incision healing well, no blood oozing, no purulence, no erythema; lion still in place) Skin: pallor, other (very dry skin), No rash Neuro/Psych: alert, oriented x 3, depressed affect ICD10 Worksheet Patient Problems: Problems Problem Status Onset Ascites Acute Bowel obstruction Acute Pneumatosis of intestines Acute Febrile illness Acute HIV (human immunodeficiency virus infection) Acute
--- NOTE | 2017-01-04 14:01 | ASMTCMCOM ---
CM Note CM Note Notes: CM met w/ pt for dispo planning. Pt would like more information on [facility] and [facility]. CM provided pt w/ info on both facilities. CM also provided pt w/ phone number for liason for [facility]. Pt reports that he will let CM know as soon as he has come to a decision. PT notes from yesterday still indicate that the recommendation is SNF. CM sent updated info to both facilities. CM to follow. Date Signed: 01/04/2017 02:00 PM Electronically Signed By:DINA Mckinnon
[2017-01-04] MEDS: HYDROmorphONE/DILAUDID 6 MG/30 ML PCA IV PRN (14:41)
[2017-01-04] MEDS: oxyCODONE IR 5 MG TAB PO PRN ×3 (17:42→23:55)
[2017-01-04 18:37] LABS: POTASSIUM 3.3 mEq/L (3.5-5.2)
[2017-01-04] MEDS: HYDROmorphONE/DILAUDID 1 MG/ML INJ IVP PRN ×2 (19:41→22:50)
[2017-01-04] MEDS ORDERED: POTASSIUM CL 10 MEQ TAB PO ONE (22:04)
[2017-01-05] MEDS: oxyCODONE IR 5 MG TAB PO PRN ×5 (02:50→17:15)
[2017-01-05] MEDS: ONDANSETRON 4 MG/2 ML VIAL IVP PRN (02:50)
[2017-01-05] MEDS: HYDROmorphONE/DILAUDID 1 MG/ML INJ IVP PRN (04:59)
[2017-01-05 05:37] LABS: % IMMATURE GRANULYOCYTES 0.8 % (0.0-1.1); ABSOLUTE IMMATURE GRANULOCYTES 0.01 10^3/uL (0.00-0.10); ADD DIFF? NO; ADD MORPH? NO; ADD SCAN? NO; ATYPICAL LYMPHOCYTE FLAG 10 (0-99); FRAGMENT RBC FLAG 0 (0-99); HEMATOCRIT 27.4 % (40.0-51.0); HEMOGLOBIN 9.3 g/dL (13.7-17.5); LEFT SHIFT FLG 50 (0-99); LIPEMIA HEMOLYSIS FLAG 90 (0-99); MEAN CELL HEMOGLOBIN 31.8 pg (27.9-34.1); MEAN CELL HEMOGLOBIN CONCENTR. 33.9 g/dL (32.4-36.7); MEAN CELL VOLUME 93.8 fL (81.5-99.8); MEAN PLATELET VOLUME 10.6 fL (8.7-11.7); PLATELET CLUMPS FLAG 0 (0-99); PLATELET COUNT 133 10^3/uL (150-400); RED BLOOD CELL COUNT 2.92 10^6/uL (4.40-6.38); RED CELL DISTRIBUTION WIDTH 15.3 % (11.5-15.2)
[2017-01-05 05:51] LABS: ANION GAP 9 mEq/L (8-16); CALCIUM 7.9 mg/dL (8.5-10.4); CARBON DIOXIDE 23 mEq/l (22-31); CHLORIDE 110 mEq/L (97-110); CREATININE 0.8 mg/dL (0.7-1.3); GLOMERULAR FILTRATION RATE > 60; GLUCOSE 112 mg/dL (70-100); MAGNESIUM 1.7 mg/dL (1.6-2.3); POTASSIUM 3.5 mEq/L (3.5-5.2); SODIUM 142 mEq/L (134-144)
[2017-01-05] MEDS: PROMETHAZINE HCL 25 MG/ML INJ IVP PRN (08:47)
[2017-01-05] MEDS: RIFABUTIN 150 MG CAP PO SCH (09:16)
[2017-01-05] MEDS: EMTRICITABINE/TENOFOVIR 200MG/300MG TAB PO SCH (09:17)
[2017-01-05] MEDS: GABAPENTIN 400 MG CAP PO SCH ×2 (09:18→20:07)
[2017-01-05] MEDS: DARUNAVIR ETHANOLATE 800 MG TAB PO SCH (09:18)
[2017-01-05] MEDS: RITONAVIR 100 MG TAB PO SCH (09:18)
[2017-01-05] MEDS ORDERED: POTASSIUM CL 10 MEQ TAB PO ONE (10:08)
--- NOTE | 2017-01-05 11:08 | SOAPPROG ---
SOAP Progress Note Assessment/Plan: Assessment: 41 yo M with hx of HIV s/p exploratory laparotomy and lysis of adhesions. Regular diet Continue pain control PT/OT Incision may be left to air. Staple removal at 2 weeks post op. Ambulation encouraged Appreciate hospitalists Appreciate ID Dispo: OK from surgery standpoint. Will defer to medicine and ID. Surgery to sign off, but happy to see him again if needed. Seen c Dr. Francois S: Pain controlled. Tolerating regular diet. Having BM and passing flatus. Denies N/V. O: Afebrile Lying in bed, NAD MMM No increased WOB Belly soft, nondistended, incision c/d/i with lion, + BS Objective: Vital Signs Temp Pulse Resp BP Pulse Ox 36.5 C 64 16 122/83 H 98 01/05/17 08:00 01/05/17 08:00 01/05/17 08:00 01/05/17 08:00 01/05/17 08:00 Microbiology 12/28/16 15:36 Gram Stain - Final Abdomen - Tissue Anaerobic Culture - Final 12/28/16 15:36 Gram Stain - Final Abdomen - Eswab Anaerobic Culture - Final 12/28/16 15:36 Gram Stain - Final Abdomen - Eswab Anaerobic Culture - Final Laboratory Results 01/05/17 04:53 01/05/17 04:53 01/04/17 01/05/17 01/06/17 05:59 05:59 05:59 Intake Total 500 1450 Output Total 1155 1250 400 Balance -655 200 -400 PT 16.4 SEC (12.0-15.0) H 01/02/17 04:35 INR 1.32 (0.83-1.16) H 01/02/17 04:35 ICD10 Worksheet Patient Problems: Problems Problem Status Onset Ascites Acute Bowel obstruction Acute Pneumatosis of intestines Acute Febrile illness Acute HIV (human immunodeficiency virus infection) Acute
--- NOTE | 2017-01-05 11:29 | PCMIDPN ---
Assessment/Plan: #SBO due to abscess likely due to dMAC/IRIS s/p surgery. Cx remain negative. + flatus today but still some abdominal distension. Suspect low grade temp may be due to IRIS to dMAC --will start prednisone for possible component of IRIS. Selected lower dose at 40mg due to interaction with ritonavir increasing prednisone levels. Tentatively plan taper over 4ish weeks. 40x 5days, [id number], 20x5 days, 10x 5 days, 5x 5 days; (generally recommended: 20 to 40 mg prednisone for four to eight weeks) --continue MAC therapy --will continue to monitor #AIDS CD4=24 (16%) with very low VL (29, essentially viral suppression): --continue DRV/r/TDF/FTC --start bactrim SS daily today now that likely etiology of pancytopenia is dMAC/ IRIS (add on Toxo IgG, if positive may have to use DS) #dMAC --continue rifabutin/ethambutol/azitho. 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 Objective: Vital Signs Temp Pulse Resp BP Pulse Ox 36.5 C 64 16 122/83 H 98 01/05/17 08:00 01/05/17 08:00 01/05/17 08:00 01/05/17 08:00 01/05/17 08:00 Microbiology 12/28/16 15:36 Gram Stain - Final Abdomen - Tissue Anaerobic Culture - Final 12/28/16 15:36 Gram Stain - Final Abdomen - Eswab Anaerobic Culture - Final 12/28/16 15:36 Gram Stain - Final Abdomen - Eswab Anaerobic Culture - Final Laboratory Results 01/05/17 04:53 01/05/17 04:53 01/04/17 01/05/17 01/06/17 05:59 05:59 05:59 Intake Total 500 1450 Output Total 1155 1250 400 Balance -655 200 -400 - Physical Exam General Appearance: alert, no apparent distress Respiratory: No accessory muscle use Abdomen: non-tender, soft Skin: rash, other (Very dry skin) Neuro/Psych: alert, oriented x 3, depressed affect - Time Spent With Patient Time Spent with Patient: greater than 25 minutes Time Spent with Patient: Greater than 25 minutes spent on this patients care, greater than 50% of time spent counseling, educating, and coordinating care regarding the above mentioned plan. ICD10 Worksheet Patient Problems: Problems Problem Status Onset Ascites Acute Bowel obstruction Acute Pneumatosis of intestines Acute Febrile illness Acute HIV (human immunodeficiency virus infection) Acute
[2017-01-05] MEDS: predniSONE 20 MG TAB PO SCH (11:41)
[2017-01-05] MEDS: AZITHROMYCIN 250 MG TAB PO SCH (11:41)
[2017-01-05] MEDS: PANTOPRAZOLE SODIUM 40 MG TAB PO SCH (11:41)
[2017-01-05] MEDS: ETHAMBUTOL HCL 400 MG TAB PO SCH (11:42)
[2017-01-05] MEDS: PHYTONADIONE 2.5 MG/2.5 ML ORAL UDL PO SCH (11:46)
--- NOTE | 2017-01-05 13:30 | HOSPPROG ---
Hospitalist Progress Note Assessment/Plan: 41-year-old with a and disseminated MAC/IRIS is admitted with small-bowel obstruction due to abscess. Cultures negative currently. Postop course complicated by acute on chronic anemia. From a GI and surgical perspective, he is tolerating a regular diet and having BM's. Surgery has signed off today (). Prednisone was started 01/03 for IRIS. No further fever. Appears to be improving. His biggest acute issue is pain control. He reports abd pain as well as LE neuropathy. 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 Today I will increase Gabapentin. Can further increase if needed. He has a hx of chronic pain syndrome. We discussed starting low amount of long acting pain meds and MS contin will be started. If pain is better controlled, would consider discharge tomorrow. When he is ready clinically, the plan is for discharge to [facility] # small-bowel obstruction likely due to disseminated MAC status post surgery. * cultures unremarkable, on abx for MAC and antiretrovirals. # AIDS, CD4 equal 24 with low viral. * Continue antivirals * Holding PCP prophylaxis for now. Per ID, considering restarting bactrim # Fever on 01/01, none since: Patient is clinically improving. ? due to IRIS. Now on steroids * Cont Prednisone with taper per ID # Acute on chronic Pain Syndrome. Per above. Cont with short acting, increased Neurontin, started MS Contin. 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 K. Possibly secondary to severe vitamin K deficiency. * consider mixing study to rule out inhibitor as cause. * Continue to follow and continue vitamin K. * no history of clots to suggest anticardiolipin ab. * Oozing from wound has stopped. 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 Past w/u: 10/10 bone marrow flow cytometric analysis of bone marrow biopsy showed no evidence of monoclonal T-cell population in conjunction with analysis of CD3, CD4 and CD7 ; markedly hypocellular marrow with scant trilineage hematopoiesis. Low haptoglobin, nl adrianne, CMV load negative, parvo Ab not suggestive of acute dz, PNH negative # acute anemia likely multifactorial due to some expected surgical blood loss, additionally patient has severe bone marrow suppression and hypo cellularity likely making it difficult for him to replace red blood cells. * Transfuse 2 units and continue to monitor her anemia. * No indication for repeat transfusion # elevated blood pressure postop, resolved # Generalized Weakness: Cont with PT/OT. # Hypokalemia: replace PRN PPx. High risk, SCDs, hold pharm given bleeding Subjective: c/o LE neuropathy. c/o abd pain. + BM, tolerating diet well. Objective: Vital Signs Temp Pulse Resp BP Pulse Ox 36.5 C 59 L 16 117/88 H 98 01/05/17 12:00 01/05/17 12:00 01/05/17 12:00 01/05/17 12:00 01/05/17 12:00 Microbiology 12/28/16 15:36 Gram Stain - Final Abdomen - Tissue Anaerobic Culture - Final 12/28/16 15:36 Gram Stain - Final Abdomen - Eswab Anaerobic Culture - Final 12/28/16 15:36 Gram Stain - Final Abdomen - Eswab Anaerobic Culture - Final Laboratory Results 01/05/17 04:53 01/05/17 04:53 01/04/17 01/05/17 01/06/17 05:59 05:59 05:59 Intake Total 500 1450 Output Total 1155 1250 400 Balance -655 200 -400 PT 16.4 SEC (12.0-15.0) H 01/02/17 04:35 INR 1.32 (0.83-1.16) H 01/02/17 04:35 - Time Spent With Patient Time Spent with Patient: greater than 35 minutes Time Spent with Patient: Greater than 35 minutes spent on this patients care, greater than 50% of time spent counseling, educating, and coordinating care regarding the above mentioned plan. - Physical Exam Constitutional: no apparent distress, appears nourished, not in pain Eyes: PERRL, EOMI Ears, Nose, Mouth, Throat: moist mucous membranes, hearing normal Cardiovascular: regular rate and rhythym, no murmur, rub, or gallop Respiratory: no respiratory distress, no rales or rhonchi, clear to auscultation Gastrointestinal: normoactive bowel sounds, soft, non-tender abdomen (incision: C/D/I) Skin: warm Neurologic: AAOx3 Psychiatric: interacting appropriately, not anxious, not encephalopathic, thought process linear ICD10 Worksheet Patient Problems: Problems Problem Status Onset Ascites Acute Bowel obstruction Acute Pneumatosis of intestines Acute Febrile illness Acute HIV (human immunodeficiency virus infection) Acute
[2017-01-05] MEDS: morphINE SR 15 MG TAB PO SCH ×2 (13:33→20:07)
[2017-01-05 14:16] LABS: DILUTE RUSSELLS VIPER VENOM 1.1 ratio (0.0 - 1.1); INR 1.2; INTERPRETATION See Comments; PTT 39 sec (26 - 36)
[2017-01-05] MEDS ORDERED: MAGNESIUM SULF 1 GM/DEXTROSE 100 ML IV ONE ×2 (14:34→15:15)
--- NOTE | 2017-01-05 15:07 | GOP ---
[f rep st] OPERATIVE REPORT DATE OF OPERATION: 12/28/2016 SURGEON: Jas Francois MD WAD COMPRESSOR OPERATOR ADJUSTER: Carmina Jean-Baptiste PA-C. ANESTHESIOLOGIST: Dr. Bergman. PREOPERATIVE DIAGNOSIS: Small bowel obstruction. POSTOPERATIVE DIAGNOSIS: Small bowel obstruction, with interloop abdominal abscess. PROCEDURE PERFORMED: Patient was taken to the operating room where he received satisfactory general endotracheal anesthesia by Dr. Bergman, and he was placed in supine position and prepped and draped in the usual sterile fashion. A midline abdominal incision was made and carried through the linea alba and through the old previous incision. The abdomen was carefully entered. Adhesions were taken down . He had a large amount of filmy adhesions, which were easily dissected free. The bowel was totally exposed from the ligament of Treitz to the ileocecal valve, and a clear junction between dilated bow el and decompressed bowel was identified. Working down to this area, a small abscess was encountered . This was cultured and freed up. Bowel loops were completely freed, and this allowed equalization of the 2 segments of the bowel with material flowing into the nondilated bowel. The wound was copiou sly irrigated. Hemostasis was assured. Multiple peritoneal nodules were then dissected free and rem ruben for biopsy. Wound was irrigated. Hemostasis was assured. The abdomen was then closed in layer s using a running #1 PDS suture for the linea alba and skin lion for the skin. Wound was infiltra linus with 0.5% Marcaine. A large amount of ascitic fluid had been suctioned clear. Blood loss from t he procedure was less than 50 cc. There were no complications. He was taken to the recovery room in good condition. FINDINGS: Patient was found to have a small abscess in the interloop area causing a constriction and small-bowel obstruction, in addition to diffuse to cheesy-white nodules throughout the peritoneal jarquin rfaces in the mesentery, consistent with granulomata. There was no major bleeding or other signs of infection. DESCRIPTION OF PROCEDURE: /[id number]/MODL
--- NOTE | 2017-01-05 17:22 | ASMTCMCOM ---
CM Note CM Note Notes: Today after checking in with Pt. several times, Pt. informed SWer he wants to go to [facility] at d/c. Let Qian at know. She will submit for auth tomorrow. SWer sent updated progress notes and therapy notes today. Will send non-triggering PASRR tomorrow. Date Signed: 01/05/2017 05:21 PM Electronically Signed By:Kati Cruz LCSW
[2017-01-05] MEDS: DOCUSATE SODIUM 100 MG CAP PO SCH (20:07)
[2017-01-05] MEDS: GABAPENTIN 300 MG CAP PO SCH (20:08)
[2017-01-06] MEDS: oxyCODONE IR 5 MG TAB PO PRN ×4 (01:37→21:02)
[2017-01-06] MEDS: HYDROmorphONE/DILAUDID 1 MG/ML INJ IVP PRN (04:04)
[2017-01-06 05:24] LABS: % IMMATURE GRANULYOCYTES 1.1 % (0.0-1.1); ABSOLUTE IMMATURE GRANULOCYTES 0.03 10^3/uL (0.00-0.10); ADD DIFF? NO; ADD MORPH? NO; ADD SCAN? NO; ATYPICAL LYMPHOCYTE FLAG 0 (0-99); FRAGMENT RBC FLAG 0 (0-99); HEMATOCRIT 27.2 % (40.0-51.0); HEMOGLOBIN 9.3 g/dL (13.7-17.5); LEFT SHIFT FLG 50 (0-99); LIPEMIA HEMOLYSIS FLAG 90 (0-99); MEAN CELL HEMOGLOBIN 32.3 pg (27.9-34.1); MEAN CELL HEMOGLOBIN CONCENTR. 34.2 g/dL (32.4-36.7); MEAN CELL VOLUME 94.4 fL (81.5-99.8); MEAN PLATELET VOLUME 11.1 fL (8.7-11.7); PLATELET CLUMPS FLAG 0 (0-99); PLATELET COUNT 161 10^3/uL (150-400); RED BLOOD CELL COUNT 2.88 10^6/uL (4.40-6.38); RED CELL DISTRIBUTION WIDTH 15.3 % (11.5-15.2)
[2017-01-06 06:53] LABS: MAGNESIUM 2.1 mg/dL (1.6-2.3); POTASSIUM 4.2 mEq/L (3.5-5.2)
[2017-01-06] MEDS: ONDANSETRON DISINTEGRATING 4 MG TAB PO PRN (10:22)
[2017-01-06] MEDS: SULFAMETHOX/TMP 400/80 MG 1 TAB PO SCH (10:45)
[2017-01-06] MEDS: predniSONE 20 MG TAB PO SCH (10:45)
[2017-01-06] MEDS: morphINE SR 15 MG TAB PO SCH ×2 (10:45→21:02)
[2017-01-06] MEDS: GABAPENTIN 300 MG CAP PO SCH ×3 (10:46→21:01)
--- NOTE | 2017-01-06 10:59 | HOSPPROG ---
Hospitalist Progress Note Assessment/Plan: 41-year-old with a and disseminated MAC/IRIS is admitted with small-bowel obstruction due to abscess. Cultures negative currently. Postop course complicated by acute on chronic anemia. From a GI and surgical perspective, he is tolerating a regular diet and having BM's. Surgery signed off on 01/05. Prednisone was started 01/03 for IRIS and since starting had had no further fever. Overall WBC, Hgb, and platelets are increasing. Pain has been the biggest acute issue and this is improving since starting MS contin on 01/05. He also had Bilateral LE neuropathy and I will again increase Gabapentin today to 900mg TID Discharge to [facility] when medically stable. This is being arranged by CM. From a pain perspective, I dont think he will agree to discharge until tomorrow. # small-bowel obstruction likely due to disseminated MAC status post surgery. * cultures unremarkable, on abx for MAC and antiretrovirals. # AIDS, CD4 equal 24 with low viral. * Continue antivirals * Bactrim for PCP prophylaxis # Fever on 01/01, none since: Patient is clinically improving. ? due to IRIS. Now on steroids * Cont Prednisone with taper per ID # Acute on chronic Pain Syndrome. Per above. Cont with short acting, increased Neurontin, cont MS Contin. 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 K. Possibly secondary to severe vitamin K deficiency. * consider mixing study to rule out inhibitor as cause. * Continue to follow and continue vitamin K. * no history of clots to suggest anticardiolipin ab. * Oozing from wound has stopped. * Continue K replacement # lower extremity neuropathy. On Neurontin # Chronic anemia/neutropenia may be related to chronic dMAC. Past w/u: 10/10 bone marrow flow cytometric analysis of bone marrow biopsy showed no evidence of monoclonal T-cell population in conjunction with analysis of CD3, CD4 and CD7 ; markedly hypocellular marrow with scant trilineage hematopoiesis. Low haptoglobin, nl adrianne, CMV load negative, parvo Ab not suggestive of acute dz, PNH negative # acute anemia likely multifactorial due to some expected surgical blood loss, additionally patient has severe bone marrow suppression and hypo cellularity likely making it difficult for him to replace red blood cells. * Transfuse 2 units and continue to monitor her anemia. * No indication for repeat transfusion # elevated blood pressure postop, resolved # Generalized Weakness: Cont with PT/OT. # Hypokalemia: replace PRN PPx. High risk, SCDs, hold pharm given bleeding Subjective: Still with LE neuropathy. Still with abd pain, but improved. Tolerating PO. + BM Objective: Vital Signs Temp Pulse Resp BP Pulse Ox 35.7 C L 62 12 123/83 H 97 01/06/17 08:00 01/06/17 08:00 01/06/17 08:00 01/06/17 08:00 01/06/17 08:00 Laboratory Results 01/06/17 04:46 01/06/17 04:46 01/05/17 01/06/17 01/07/17 05:59 05:59 05:59 Intake Total 1450 240 Output Total 1250 2000 400 Balance 200 -1760 -400 PT 13.0 sec H 01/02/17 04:35 INR 1.2 01/02/17 04:35 - Physical Exam Constitutional: no apparent distress, appears nourished Eyes: PERRL, EOMI Ears, Nose, Mouth, Throat: moist mucous membranes, hearing normal Cardiovascular: regular rate and rhythym, no murmur, rub, or gallop, No edema Respiratory: no respiratory distress, no rales or rhonchi, clear to auscultation Gastrointestinal: normoactive bowel sounds, soft, non-tender abdomen Skin: warm Neurologic: AAOx3 Psychiatric: interacting appropriately, not anxious, not encephalopathic ICD10 Worksheet Patient Problems: Problems Problem Status Onset Ascites Acute Bowel obstruction Acute Pneumatosis of intestines Acute Febrile illness Acute HIV (human immunodeficiency virus infection) Acute
[2017-01-06] MEDS: AZITHROMYCIN 250 MG TAB PO SCH (11:16)
[2017-01-06] MEDS: DOCUSATE SODIUM 100 MG CAP PO SCH ×2 (11:16→21:02)
[2017-01-06] MEDS: ETHAMBUTOL HCL 400 MG TAB PO SCH (11:16)
[2017-01-06] MEDS: PANTOPRAZOLE SODIUM 40 MG TAB PO SCH (11:16)
[2017-01-06] MEDS: DARUNAVIR ETHANOLATE 800 MG TAB PO SCH (11:22)
[2017-01-06] MEDS: EMTRICITABINE/TENOFOVIR 200MG/300MG TAB PO SCH (11:22)
[2017-01-06] MEDS: RIFABUTIN 150 MG CAP PO SCH (11:22)
[2017-01-06] MEDS: RITONAVIR 100 MG TAB PO SCH (11:23)
[2017-01-06] MEDS: PHYTONADIONE 2.5 MG/2.5 ML ORAL UDL PO SCH (11:24)
--- NOTE | 2017-01-06 12:39 | ASMTCMCOM ---
CM Note CM Note Notes: Today SWer and consulted via phone. After seeing Pt. today, states Pt. will be ready for d/c tomorrow. Plan is to d/c to [facility] for rehab. Authorization is complete for Monday, Monday, and Monday. Non triggering PASRR completed and "fax attached" to [email or web address] today. Sent PASRR via [email or web address] to [facility] today. Franca let Qian at know about d/c tomorrow. Also let colleague RADHA NOEL know about d/c tomorrow. Date Signed: 01/06/2017 12:38 PM Electronically Signed By:Kati Cruz LCSW
[2017-01-06 14:16] LABS: TOXOPLASMA IGG ANTIBODY Negative (Negative); TOXOPLASMA IGG VALUE <3 IU/mL
--- NOTE | 2017-01-06 15:07 | PCMIDPN ---
Assessment/Plan: #SBO due to abscess likely due to dMAC/IRIS s/p surgery. Cx remain negative. + flatus today but still some abdominal distension. Suspect low grade temp may be due to IRIS to dMAC. All AFB cx from OR remain negative --will start prednisone for possible component of IRIS. Selected lower dose at 40mg due to interaction with ritonavir increasing prednisone levels. Tentatively plan taper over 4ish weeks. 40x 5days, 20n0oewo, 20x5 days, 10x 5 days, 5x 5 days; (generally recommended: 20 to 40 mg prednisone for four to eight weeks) --continue MAC therapy --will continue to monitor --does not want to be discharged until Monday #AIDS CD4=24 (16%) with very low VL (29, essentially viral suppression): --continue DRV/r/TDF/FTC --continue bactrim SS --set up follow up with me 01/17/17 10am #dMAC --continue rifabutin/ethambutol/azitho. 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 Objective: Vital Signs Temp Pulse Resp BP Pulse Ox 35.5 C L 61 12 129/91 H 97 01/06/17 11:11 01/06/17 11:11 01/06/17 11:11 01/06/17 11:11 01/06/17 11:11 Laboratory Results 01/06/17 04:46 01/06/17 04:46 01/05/17 01/06/17 01/07/17 05:59 05:59 05:59 Intake Total 1450 240 Output Total 1250 2000 400 Balance 200 -1760 -400 - Physical Exam General Appearance: alert, no apparent distress EENT: pale conjunctiva, No scleral icterus Neck: supple Cardiac/Chest: regular rate, rhythm Extremities: No pedal edema Abdomen: normal bowel sounds, non-tender, soft, other (midline incision healing well) Neuro/Psych: alert, normal mood/affect, oriented x 3 - Time Spent With Patient Time Spent with Patient: greater than 35 minutes (reviewed path) Time Spent with Patient: Greater than 35 minutes spent on this patients care, greater than 50% of time spent counseling, educating, and coordinating care regarding the above mentioned plan. ICD10 Worksheet Patient Problems: Problems Problem Status Onset Ascites Acute Bowel obstruction Acute Pneumatosis of intestines Acute Febrile illness Acute HIV (human immunodeficiency virus infection) Acute
--- NOTE | 2017-01-06 15:26 | ASMTCMCOM ---
CM Note CM Note Notes: Franca learned later in day today that Dr. Alberto plans for Monday d/c of Pt. Franca let [facility] know. did not anticipate problems at this point in time. Date Signed: 01/06/2017 03:26 PM Electronically Signed By:Kati Cruz LCSW
[2017-01-06 18:55] LABS: POTASSIUM 3.8 mEq/L (3.5-5.2)
[2017-01-06] MEDS ORDERED: POTASSIUM CL 10 MEQ TAB PO ONE (19:44)
[2017-01-07] MEDS: oxyCODONE IR 5 MG TAB PO PRN ×5 (01:58→19:31)
[2017-01-07 06:17] LABS: MAGNESIUM 2.1 mg/dL (1.6-2.3); POTASSIUM 4.1 mEq/L (3.5-5.2)
[2017-01-07] MEDS: ONDANSETRON DISINTEGRATING 4 MG TAB PO PRN (09:46)
[2017-01-07] MEDS: AZITHROMYCIN 250 MG TAB PO SCH (10:07)
[2017-01-07] MEDS: SULFAMETHOX/TMP 400/80 MG 1 TAB PO SCH (10:08)
[2017-01-07] MEDS: GABAPENTIN 300 MG CAP PO SCH ×3 (10:09→21:00)
[2017-01-07] MEDS: DARUNAVIR ETHANOLATE 800 MG TAB PO SCH (10:09)
[2017-01-07] MEDS: PANTOPRAZOLE SODIUM 40 MG TAB PO SCH (10:09)
[2017-01-07] MEDS: RITONAVIR 100 MG TAB PO SCH (10:09)
[2017-01-07] MEDS: morphINE SR 15 MG TAB PO SCH ×2 (10:12→20:59)
--- NOTE | 2017-01-07 10:45 | HOSPPROG ---
Hospitalist Progress Note Assessment/Plan: 41-year-old with a and disseminated MAC/IRIS is admitted with small-bowel obstruction due to abscess. Cultures negative currently. Postop course complicated by acute on chronic anemia. From a GI and surgical perspective, he is tolerating a regular diet and having BM's. Surgery signed off on 01/05. Prednisone was started 01/03 for IRIS and since starting had had no further fever. Overall WBC, Hgb, and platelets are increasing. Pain has been the biggest acute issue and this is improving since starting MS contin on 01/05. He also had Bilateral LE neuropathy and Gabapentin was increased 900mg TID on 01/07. EMG as an outpatient. Discharge to [facility] when medically stable. Per the most recent CM note, this has been set up for Monday. Nutrition eval today # small-bowel obstruction likely due to disseminated MAC status post surgery. * cultures unremarkable, on abx for MAC and antiretrovirals. # AIDS, CD4 equal 24 with low viral. * Continue antivirals * Bactrim for PCP prophylaxis # Fever on 01/01, none since: Patient is clinically improving. ? due to IRIS. Now on steroids * Cont Prednisone with taper per ID # Acute on chronic Pain Syndrome. Per above. Cont with short acting, Neurontin , cont MS Contin. 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 K. Possibly secondary to severe vitamin K deficiency. * consider mixing study to rule out inhibitor as cause. * Continue to follow and continue vitamin K. * no history of clots to suggest anticardiolipin ab. * Oozing from wound has stopped. # lower extremity neuropathy. On Neurontin # Chronic anemia/neutropenia may be related to chronic dMAC. Past w/u: 10/10 bone marrow flow cytometric analysis of bone marrow biopsy showed no evidence of monoclonal T-cell population in conjunction with analysis of CD3, CD4 and CD7 ; markedly hypocellular marrow with scant trilineage hematopoiesis. Low haptoglobin, nl adrianne, CMV load negative, parvo Ab not suggestive of acute dz, PNH negative # acute anemia likely multifactorial due to some expected surgical blood loss, additionally patient has severe bone marrow suppression and hypo cellularity likely making it difficult for him to replace red blood cells. * Transfuse 2 units and continue to monitor her anemia. * No indication for repeat transfusion # elevated blood pressure postop, resolved # Generalized Weakness: Cont with PT/OT. # Hypokalemia: replace PRN PPx. High risk, SCDs, hold pharm given bleeding Subjective: Feels better. Still with LE neuropathy. Requesting a nutrition eval. Objective: Vital Signs Temp Pulse Resp BP Pulse Ox 36.7 C 61 14 134/93 H 97 01/07/17 08:00 01/07/17 08:00 01/07/17 08:00 01/07/17 08:00 01/07/17 08:00 Laboratory Results 01/06/17 04:46 01/07/17 04:46 01/06/17 01/07/17 01/08/17 05:59 05:59 05:59 Intake Total 240 1050 Output Total 2000 1750 Balance -1760 -700 PT 13.0 sec H 01/02/17 04:35 INR 1.2 01/02/17 04:35 - Physical Exam Constitutional: no apparent distress Eyes: PERRL Ears, Nose, Mouth, Throat: moist mucous membranes, hearing normal Cardiovascular: No edema Respiratory: no respiratory distress Gastrointestinal: No distension Neurologic: AAOx3 Psychiatric: interacting appropriately, not anxious, not encephalopathic, thought process linear ICD10 Worksheet Patient Problems: Problems Problem Status Onset Ascites Acute Bowel obstruction Acute Pneumatosis of intestines Acute Febrile illness Acute HIV (human immunodeficiency virus infection) Acute
[2017-01-07] MEDS: EMTRICITABINE/TENOFOVIR 200MG/300MG TAB PO SCH (11:23)
[2017-01-07] MEDS: predniSONE 20 MG TAB PO SCH (11:23)
[2017-01-07] MEDS: DOCUSATE SODIUM 100 MG CAP PO SCH ×2 (11:23→20:59)
[2017-01-07] MEDS: RIFABUTIN 150 MG CAP PO SCH (11:23)
[2017-01-07] MEDS: ETHAMBUTOL HCL 400 MG TAB PO SCH (11:23)
[2017-01-07] MEDS: PHYTONADIONE 2.5 MG/2.5 ML ORAL UDL PO SCH (11:24)
[2017-01-07 18:28] LABS: POTASSIUM 4.2 mEq/L (3.5-5.2)
[2017-01-08] MEDS: oxyCODONE IR 5 MG TAB PO PRN ×8 (00:02→23:57)
[2017-01-08 05:30] LABS: ALANINE AMINOTRANSFERASE 30 IU/L (21-72); ALBUMIN 2.8 g/dL (3.5-5.0); ALKALINE PHOSPHATASE 103 IU/L (38-126); ANION GAP 9 mEq/L (8-16); ASPARTATE AMINOTRANSFERASE 22 IU/L (17-59); BILIRUBIN,TOTAL 0.8 mg/dL (0.1-1.4); CALCIUM 8.6 mg/dL (8.5-10.4); CARBON DIOXIDE 22 mEq/l (22-31); CHLORIDE 109 mEq/L (97-110); CREATININE 0.8 mg/dL (0.7-1.3); GLOMERULAR FILTRATION RATE > 60; GLUCOSE 111 mg/dL (70-100); SODIUM 140 mEq/L (134-144); TOTAL PROTEIN 6.1 g/dL (6.3-8.2)
[2017-01-08 05:38] LABS: PREALBUMIN 15.7 mg/dL (17.6-36.0)
[2017-01-08] MEDS: ONDANSETRON 4 MG/2 ML VIAL IVP PRN (08:22)
[2017-01-08] MEDS: predniSONE 20 MG TAB PO SCH (08:46)
[2017-01-08] MEDS: morphINE SR 15 MG TAB PO SCH ×2 (08:47→20:49)
[2017-01-08] MEDS: RITONAVIR 100 MG TAB PO SCH (08:47)
[2017-01-08] MEDS: PANTOPRAZOLE SODIUM 40 MG TAB PO SCH (08:47)
[2017-01-08] MEDS: SULFAMETHOX/TMP 400/80 MG 1 TAB PO SCH (08:47)
[2017-01-08] MEDS: EMTRICITABINE/TENOFOVIR 200MG/300MG TAB PO SCH (08:47)
[2017-01-08] MEDS: GABAPENTIN 300 MG CAP PO SCH ×3 (09:38→20:48)
[2017-01-08] MEDS: AZITHROMYCIN 250 MG TAB PO SCH (09:38)
[2017-01-08] MEDS: DARUNAVIR ETHANOLATE 800 MG TAB PO SCH (09:38)
[2017-01-08] MEDS: DOCUSATE SODIUM 100 MG CAP PO SCH ×2 (09:38→20:49)
[2017-01-08] MEDS: ETHAMBUTOL HCL 400 MG TAB PO SCH (09:39)
[2017-01-08] MEDS: RIFABUTIN 150 MG CAP PO SCH (09:45)
[2017-01-08] MEDS: PHYTONADIONE 2.5 MG/2.5 ML ORAL UDL PO SCH (09:45)
--- NOTE | 2017-01-08 14:08 | HOSPPROG ---
Hospitalist Progress Note Assessment/Plan: 41-year-old with a and disseminated MAC/IRIS is admitted with small-bowel obstruction due to abscess. Cultures negative currently. Postop course complicated by acute on chronic anemia. From a GI and surgical perspective, he is tolerating a regular diet and having BM's. Surgery signed off on 01/05. Prednisone was started 01/03 for IRIS and since starting had had no further fever. Overall WBC, Hgb, and platelets have increased Pain has been the biggest acute issue and this is improving since starting MS contin on 01/05. He also had Bilateral LE neuropathy and Gabapentin was increased 900mg TID on 01/07. EMG as an outpatient. Discharge to [facility] when medically stable. Per the most recent note, this has been set up for Monday. No changes to mgmt today, await discharge tomorrow # small-bowel obstruction likely due to disseminated MAC status post surgery. * cultures unremarkable, on abx for MAC and antiretrovirals. # AIDS, CD4 equal 24 with low viral. * Continue antivirals * Bactrim for PCP prophylaxis # Fever on 01/01, none since: Patient is clinically improving. ? due to IRIS. Now on steroids * Cont Prednisone with taper per ID # Acute on chronic Pain Syndrome. Per above. Cont with short acting, Neurontin , cont MS Contin. 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 K. Possibly secondary to severe vitamin K deficiency. * consider mixing study to rule out inhibitor as cause. * Continue to follow and continue vitamin K. * no history of clots to suggest anticardiolipin ab. * Oozing from wound has stopped. # lower extremity neuropathy. On Neurontin # Chronic anemia/neutropenia may be related to chronic dMAC. Past w/u: 10/10 bone marrow flow cytometric analysis of bone marrow biopsy showed no evidence of monoclonal T-cell population in conjunction with analysis of CD3, CD4 and CD7 ; markedly hypocellular marrow with scant trilineage hematopoiesis. Low haptoglobin, nl adrianne, CMV load negative, parvo Ab not suggestive of acute dz, PNH negative # acute anemia likely multifactorial due to some expected surgical blood loss, additionally patient has severe bone marrow suppression and hypo cellularity likely making it difficult for him to replace red blood cells. * Transfuse 2 units and continue to monitor her anemia. * No indication for repeat transfusion # elevated blood pressure postop, resolved # Generalized Weakness: Cont with PT/OT. # Hypokalemia: replace PRN PPx. High risk, SCDs, hold pharm given bleeding Subjective: doing well. Pain is better controlled. No CP or SOB. tolerating diet. Still with Neuropathy Objective: Vital Signs Temp Pulse Resp BP Pulse Ox 36.7 C 65 16 111/76 96 01/08/17 11:22 01/08/17 11:22 01/08/17 11:22 01/08/17 11:22 01/08/17 11:22 Laboratory Results 01/06/17 04:46 01/08/17 04:53 01/07/17 01/08/17 01/09/17 05:59 05:59 05:59 Intake Total 1050 800 Output Total 1750 1300 675 Balance -700 -500 -675 PT 13.0 sec H 01/02/17 04:35 INR 1.2 01/02/17 04:35 - Physical Exam Constitutional: no apparent distress Eyes: PERRL, EOMI Ears, Nose, Mouth, Throat: moist mucous membranes, hearing normal Cardiovascular: regular rate and rhythym, no murmur, rub, or gallop Respiratory: no respiratory distress Gastrointestinal: normoactive bowel sounds, soft, non-tender abdomen Skin: warm Psychiatric: interacting appropriately, not anxious, not encephalopathic ICD10 Worksheet Patient Problems: Problems Problem Status Onset Ascites Acute Bowel obstruction Acute Pneumatosis of intestines Acute Febrile illness Acute HIV (human immunodeficiency virus infection) Acute
[2017-01-09] MEDS: oxyCODONE IR 5 MG TAB PO PRN ×7 (03:25→22:15)
[2017-01-09] MEDS: ONDANSETRON DISINTEGRATING 4 MG TAB PO PRN (07:39)
[2017-01-09] MEDS: DARUNAVIR ETHANOLATE 800 MG TAB PO SCH (08:03)
[2017-01-09] MEDS: AZITHROMYCIN 250 MG TAB PO SCH (08:03)
[2017-01-09] MEDS: DOCUSATE SODIUM 100 MG CAP PO SCH ×2 (08:03→20:35)
[2017-01-09] MEDS: EMTRICITABINE/TENOFOVIR 200MG/300MG TAB PO SCH (08:04)
[2017-01-09] MEDS: ETHAMBUTOL HCL 400 MG TAB PO SCH (08:04)
[2017-01-09] MEDS: GABAPENTIN 300 MG CAP PO SCH ×3 (08:05→20:35)
[2017-01-09] MEDS: morphINE SR 15 MG TAB PO SCH ×2 (08:06→20:35)
[2017-01-09] MEDS: PHYTONADIONE 2.5 MG/2.5 ML ORAL UDL PO SCH (09:32)
[2017-01-09] MEDS: predniSONE 20 MG TAB PO SCH (09:32)
[2017-01-09] MEDS: RIFABUTIN 150 MG CAP PO SCH (09:33)
[2017-01-09] MEDS: RITONAVIR 100 MG TAB PO SCH (09:33)
[2017-01-09] MEDS: SULFAMETHOX/TMP 400/80 MG 1 TAB PO SCH (09:33)
[2017-01-09] MEDS: PANTOPRAZOLE SODIUM 40 MG TAB PO SCH (09:34)
--- NOTE | 2017-01-09 11:06 | PDIAF ---
- Diagnosis Code Status: Full Code - Medication Management Discharge Medications: Medications to Continue on Transfer Darunavir Ethanolate [Prezista] 800 mg PO DAILY 04/29/16 [Last Taken 12/26/16] Emtricitabine/Tenofovir [Truvada 200MG/300MG (*)] 1 tab PO DAILY 04/29/16 [Last Taken 12/26/16] Ferrous Sulfate [Ferrous Sulf 325 MG (*)] 325 mg PO DAILY 04/29/16 [Last Taken 12/26/16] Ritonavir [Norvir] 100 mg PO DAILY 04/29/16 [Last Taken 12/26/16] Azithromycin [Zithromax] 500 mg PO DAILY 12/28/16 [Last Taken 12/26/16] Multivitamins [Multivitamin (*)] 1 each PO DAILY 12/28/16 [Last Taken Unknown] Rifabutin 150 mg PO DAILY 12/28/16 [Last Taken 12/26/16] Docusate Sodium [Colace 100 MG (*)] 100 mg PO BID #60 cap 01/09/17 [Last Taken Unknown] Ethambutol HCl [Myambutol 400 MG (*)] 800 mg PO DAILY tab 01/09/17 [Last Taken Unknown] Gabapentin [Neurontin 300 MG (*)] 900 mg PO TID #90 cap 01/09/17 [Last Taken Unknown] Sulfamethox/Tmp 400/80 mg [Sulfamethoxazole-Tmp SS] 1 ea PO DAILY #30 tab [Last Taken Unknown] morphINE SR [Ms Contin/Oramorph 15 mg (*)] 15 mg PO BID #20 tab 01/09/17 [Last Taken Unknown] oxyCODONE IR [Oxycodone Ir (*)] 5 mg PO Q3H PRN #30 tab 01/09/17 [Last Taken Unknown] predniSONE 20 mg PO DAILY #60 tablet 01/09/17 [Last Taken Unknown] Nursing Home Antibiotics: see med list, PCP/ID is Dr Alberto Discharge Medications: Refer to the Discharge Home Medication list for PRN reason. - Orders Services needed: Home Care, Registered Nurse, Certified Technical Support Specialist, Physical Therapy, Occupational Therapy Home Care Face to Face: I certify that this patient was under my care and that I had the required [id number] encounter meeting the encounter requirements on the discharge day. My findings support the fact that the patient is homebound as defined in Home Care Face to Face Continued: CMS Chapter 7 Medicare Benefits Manual 30.1.1 , The condition of the patient is such that there exists a normal inability to leave home and consequently, leaving home would require a considerable and taxing effort. Isolation Type: none Oxygen: none Diet Recommendation: no restrictions on diet Diet Texture: Regular Texture Diet Tube feeding: n/a Wound Care Instructions: please contact Dr Francois office for instructions, needs FU appt also Activity/Weight Bearing Restrictions: per PT/OT evals/recommendations - Follow Up Care Current Providers and Referrals: Eloina Alberto MD [Primary Care Provider] - 01/17/17 10:00 am Jas Francois MD [Medical Doctor] - follow up in 1 week
--- NOTE | 2017-01-09 14:35 | ASMTCMCOM ---
CM Note CM Note Notes: CM spoke w/ pt regarding d/c POC. Pt reports that he is not interested in going to [facility] because he is unable to go back and forth to his apartment. CM notified Qian at [facility] of this. Pt is appealing his discharge. CM explained to pt if Medicare doesn't find that it was necessary for him to stay in the hospital he would be charged. Pt reports that if he gets charged he will "have some tea and laugh about it". Pt would like to d/c home w/ [facility], HC (PT, OT, RN). CM called [facility] and made the referral. [facility] can follow pt at time of d/c. CM to follow. Date Signed: 01/09/2017 02:34 PM Electronically Signed By:DINA Mckinnon
[2017-01-09] MEDS: ACETAMINOPHEN 325 MG TAB PO PRN (16:05)
--- NOTE | 2017-01-09 16:53 | HOSPPROG ---
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 Surgery signed off on 01/05. -plan was to discharge to [facility], pt refused today, then wanted to be discharged home, then refused discharge at all today, discussed with CM -see CM notes -will review with CM and pt in AM, discharge cancelled # AIDS, CD4 equal 24 with low viral. -Continue antivirals, bactrim for PCP prophylaxis per ID recs (Dr Alberto is PCP/primary ID) # Fever on 01/01, none since: Patient is clinically improving. ? due to IRIS. Now on steroids -Cont Prednisone with taper per ID for IRIS # Acute on chronic Pain Syndrome. -says pain OK with current regimen -Cont with short acting prn, Neurontin, MS Contin, and bowel regimen # disseminated MAC -currently on rifabutin, ethambutol and Zithromax per ID recs # Coagulopathy with elevated PT and PTT, improved with vit. K. Possibly secondary to severe vitamin K deficiency. -Oozing from wound has stopped. # lower extremity neuropathy -On Neurontin # Chronic anemia/neutropenia may be related to chronic dMAC. -Past w/u: 10/10 bone marrow flow cytometric analysis of bone marrow biopsy showed no evidence of monoclonal T-cell population in conjunction with analysis of CD3, CD4 and CD7; markedly hypocellular marrow with scant trilineage hematopoiesis. Low haptoglobin, nl adrianne, CMV load negative, parvo Ab not suggestive of acute dz, PNH negative # acute anemia likely multifactorial due to some expected surgical blood loss, additionally patient has severe bone marrow suppression and hypo cellularity likely making it difficult for him to replace red blood cells. -s/p transfuse 2 units -stable, No indication for repeat transfusion # elevated blood pressure postop, resolved # Generalized Weakness -Cont with PT/OT -[facility] referral at discharge # Hypokalemia, resolved Subjective: Was planning to discharge to SNF today, but he refused bc was told he could come and go from [facility] to his home. Discussed with him and CM, agreement to DC home with [facility]. Meds revwd with him, orders done, then told later in day that he refused discharge (see CM notes). Objective: Vital Signs Temp Pulse Resp BP Pulse Ox 97.8 F 77 18 119/79 97 01/09/17 14:52 01/09/17 14:52 01/09/17 14:52 01/09/17 14:52 01/09/17 14:52 Laboratory Results 01/06/17 04:46 01/08/17 04:53 01/08/17 01/09/17 01/10/17 11:59 11:59 11:59 Intake Total 800 800 Output Total 1975 1300 Balance -1175 -500 PT 13.0 sec H 01/02/17 04:35 INR 1.2 01/02/17 04:35 - Time Spent With Patient Time Spent with Patient: greater than 35 minutes Time Spent with Patient: Greater than 35 minutes spent on this patients care, greater than 50% of time spent counseling, educating, and coordinating care regarding the above mentioned plan. - Physical Exam Constitutional: no apparent distress, appears nourished, not in pain Psychiatric: not encephalopathic, thought process linear ICD10 Worksheet Patient Problems: Problems Problem Status Onset Ascites Acute Bowel obstruction Acute Pneumatosis of intestines Acute Febrile illness Acute HIV (human immunodeficiency virus infection) Acute
[2017-01-10] MEDS: oxyCODONE IR 5 MG TAB PO PRN ×8 (00:55→21:47)
[2017-01-10 05:23] LABS: % IMMATURE GRANULYOCYTES 1.8 % (0.0-1.1); ABSOLUTE IMMATURE GRANULOCYTES 0.08 10^3/uL (0.00-0.10); ADD DIFF? NO; ADD MORPH? NO; ADD SCAN? NO; ATYPICAL LYMPHOCYTE FLAG 0 (0-99); FRAGMENT RBC FLAG 0 (0-99); HEMOGLOBIN 9.4 g/dL (13.7-17.5); LEFT SHIFT FLG 30 (0-99); LIPEMIA HEMOLYSIS FLAG 80 (0-99); MEAN CELL HEMOGLOBIN 32.2 pg (27.9-34.1); MEAN CELL HEMOGLOBIN CONCENTR. 33.6 g/dL (32.4-36.7); MEAN CELL VOLUME 95.9 fL (81.5-99.8); MEAN PLATELET VOLUME 10.9 fL (8.7-11.7); PLATELET CLUMPS FLAG 0 (0-99); PLATELET COUNT 230 10^3/uL (150-400); RED BLOOD CELL COUNT 2.92 10^6/uL (4.40-6.38); RED CELL DISTRIBUTION WIDTH 15.4 % (11.5-15.2)
[2017-01-10 05:34] LABS: ANION GAP 9 mEq/L (8-16); CALCIUM 9.1 mg/dL (8.5-10.4); CARBON DIOXIDE 22 mEq/l (22-31); CHLORIDE 108 mEq/L (97-110); CREATININE 0.8 mg/dL (0.7-1.3); GLOMERULAR FILTRATION RATE > 60; GLUCOSE 119 mg/dL (70-100); POTASSIUM 4.5 mEq/L (3.5-5.2); SODIUM 139 mEq/L (134-144)
[2017-01-10] MEDS: ONDANSETRON 4 MG/2 ML VIAL IVP PRN (07:54)
[2017-01-10] MEDS: EMTRICITABINE/TENOFOVIR 200MG/300MG TAB PO SCH (08:41)
[2017-01-10] MEDS: DARUNAVIR ETHANOLATE 800 MG TAB PO SCH (08:41)
[2017-01-10] MEDS: morphINE SR 15 MG TAB PO SCH (08:41)
[2017-01-10] MEDS: ETHAMBUTOL HCL 400 MG TAB PO SCH (08:41)
[2017-01-10] MEDS: GABAPENTIN 300 MG CAP PO SCH ×3 (08:41→20:59)
[2017-01-10] MEDS: DOCUSATE SODIUM 100 MG CAP PO SCH ×2 (08:41→20:59)
[2017-01-10] MEDS: AZITHROMYCIN 250 MG TAB PO SCH (08:41)
[2017-01-10] MEDS: predniSONE 20 MG TAB PO SCH (10:06)
[2017-01-10] MEDS: SULFAMETHOX/TMP 400/80 MG 1 TAB PO SCH (10:07)
[2017-01-10] MEDS: PHYTONADIONE 2.5 MG/2.5 ML ORAL UDL PO SCH (10:07)
[2017-01-10] MEDS: RIFABUTIN 150 MG CAP PO SCH (10:07)
[2017-01-10] MEDS: PANTOPRAZOLE SODIUM 40 MG TAB PO SCH (10:07)
[2017-01-10] MEDS: RITONAVIR 100 MG TAB PO SCH (10:07)
--- NOTE | 2017-01-10 14:30 | ASMTCMCOM ---
CM Note CM Note Notes: Pts request for an appeal has been denied [facility]. According to Medicare pt is allowed to stay until tomorrow at 12pm. Pt is requesting to stay until then. CM notified Chiara, manager media of this. Vivi from [employer] has spoken to pt about this matter. CM to follow. Date Signed: 01/10/2017 02:29 PM Electronically Signed By:DINA Mckinnon
--- NOTE | 2017-01-10 14:49 | GOP ---
[f rep st] OPERATIVE REPORT DATE OF OPERATION: 12/28/2016 SURGEON: Jas Francois MD PREVENTATIVE MAINTENANCE TECHNICIAN: Carmina Jean-Baptiste PA-C ANESTHESIOLOGIST: Dr. Bergman. PREOPERATIVE DIAGNOSIS: Small bowel obstruction. POSTOPERATIVE DIAGNOSIS: Small bowel obstruction with interloop abdominal abscess. PROCEDURE PERFORMED: Laparotomy with adhesiolysis, drainage of abscess, multiple mesenteric biopsies , and cultures. FINDINGS: The patient was found to have a small residual abscess causing inflammatory reaction, whic h created a complete small bowel obstruction. In addition, he had diffuse cheesy white nodules throu ghout his mesentery and abdominal wall. There was a fair amount of ascitic fluid in the abdomen as w ell DESCRIPTION OF PROCEDURE: The patient was taken to the operating room and received satisfactory gene ral endotracheal anesthesia by Dr. Bergman. He was placed in a supine position, prepped and draped in the usual sterile fashion. A midline abdominal incision was made through his previous old incision a nd extended up somewhat above that incision. The abdomen was carefully entered. Free space was enco untered above the old incision. Adhesions were then tediously taken down throughout the abdomen. Fo rtunately, they were quite filmy and easy to take down. The small bowel was dissected off the old in cision, and the incision was steadily enlarged until adequate exposure was obtained and the bowel was markedly dilated. However, transition point was identified. Dissection extended down to that point , where a small liquid abscess was encountered, less than 5 cc in size, that was cultured and evacuat ed. The adhesions continued to be lysed, and then the transition point between the dilated and small bowel was lost after freeing up the adhesions. The bowel functioned normally. The entire bowel was run from the ligament of Treitz to the colonic area. All adhesions were taken down. There were no difficulties. Wounds were irrigated. There were no other abscess areas. There was a fair amount of fluid in the abdomen. Multiple nodules off the abdominal wall and the mesentery of the small bowel were biopsied and sent for both culture and histology. Wound was copiously irrigated. Hemostasis wa s assured. The midline abdominal incision was then closed with a running #1 PDS suture, reinforced w ith #1 Vicryl interrupted sutures. The skin was closed with skin lion. The wound was infiltrated with 0.5% Marcaine. He tolerated the procedure well. Taken to the recovery room in good condition. /[id number]/MODL
--- NOTE | 2017-01-10 14:55 | HOSPPROG ---
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 Surgery signed off on 01/05. -plan was to discharge to [facility], pt refused [facility] yesterday, then wanted to be discharged home, then refused discharge at all yesterday. Again, revwd discharge today, processed discharge, then informed later in the day that he is refusing again. Discussed with CM, and with Dr Alberto. She will see him tomorrow, and she requests that MS contin be stopped, OK to continue with prn. Discharge cancelled. MS contin discontinued. -see CM notes -BCAP advocate to contact him also per Dr Alberto # AIDS, CD4 equal 24 with low viral. -Continue antivirals, bactrim for PCP prophylaxis per ID recs (Dr Alberto is PCP/primary ID) # Fever on 01/01, none since: Patient is clinically improving. ? due to IRIS. Now on steroids -Cont Prednisone with taper per ID for IRIS # Acute on chronic Pain Syndrome. -says pain OK with current regimen but Dr Alberto requests to stop long acting pain meds -Cont with short acting prn, Neurontin, and bowel regimen # disseminated MAC -currently on rifabutin, ethambutol and Zithromax per ID recs # Coagulopathy with elevated PT and PTT, improved with vit. K. Possibly secondary to severe vitamin K deficiency. -Oozing from wound has stopped. # lower extremity neuropathy -On Neurontin # Chronic anemia/neutropenia may be related to chronic dMAC. -Past w/u: 10/10 bone marrow flow cytometric analysis of bone marrow biopsy showed no evidence of monoclonal T-cell population in conjunction with analysis of CD3, CD4 and CD7; markedly hypocellular marrow with scant trilineage hematopoiesis. Low haptoglobin, nl adrianne, CMV load negative, parvo Ab not suggestive of acute dz, PNH negative # acute anemia likely multifactorial due to some expected surgical blood loss, additionally patient has severe bone marrow suppression and hypo cellularity likely making it difficult for him to replace red blood cells. -s/p transfuse 2 units -stable, No indication for repeat transfusion # elevated blood pressure postop, resolved # Generalized Weakness -Cont with PT/OT -HHC referral at discharge # Hypokalemia, resolved Subjective: Denies any questions/concerns this AM. Objective: Vital Signs Temp Pulse Resp BP Pulse Ox 98.6 F 70 16 125/85 H 97 01/10/17 07:20 01/10/17 07:20 01/10/17 07:20 01/10/17 07:20 01/10/17 07:20 Microbiology 12/28/16 15:36 Mycobacterial Smear (JERONIMO) - Final Abdomen - Eswab 12/28/16 15:36 Mycobacterial Smear (JERONIMO) - Final Abdomen - Tissue Laboratory Results 01/10/17 04:43 01/10/17 04:43 01/09/17 01/10/17 01/11/17 11:59 11:59 11:59 Intake Total 800 400 Output Total 1300 600 150 Balance -500 -200 -150 PT 13.0 sec H 01/02/17 04:35 INR 1.2 01/02/17 04:35 - Time Spent With Patient Time Spent with Patient: greater than 35 minutes Time Spent with Patient: Greater than 35 minutes spent on this patients care, greater than 50% of time spent counseling, educating, and coordinating care regarding the above mentioned plan. - Physical Exam Constitutional: no apparent distress, not in pain Ears, Nose, Mouth, Throat: moist mucous membranes Cardiovascular: regular rate and rhythym Respiratory: no respiratory distress, no rales or rhonchi Gastrointestinal: normoactive bowel sounds Psychiatric: interacting appropriately, not anxious ICD10 Worksheet Patient Problems: Problems Problem Status Onset Ascites Acute Bowel obstruction Acute Pneumatosis of intestines Acute Febrile illness Acute HIV (human immunodeficiency virus infection) Acute
[2017-01-10 22:50] VITALS: O2SAT 97
[2017-01-11] MEDS: oxyCODONE IR 5 MG TAB PO PRN ×3 (01:25→08:20)
[2017-01-11 07:56] VITALS: BP 123/86; PULSE 90; RESP 18; TEMP 98
[2017-01-11] MEDS: ONDANSETRON 4 MG/2 ML VIAL IVP PRN (08:19)
[2017-01-11] MEDS: EMTRICITABINE/TENOFOVIR 200MG/300MG TAB PO SCH (09:26)
[2017-01-11] MEDS: DARUNAVIR ETHANOLATE 800 MG TAB PO SCH (09:26)
[2017-01-11] MEDS: SULFAMETHOX/TMP 400/80 MG 1 TAB PO SCH (09:26)
[2017-01-11] MEDS: RITONAVIR 100 MG TAB PO SCH (09:26)
[2017-01-11] MEDS: predniSONE 20 MG TAB PO SCH (09:26)
[2017-01-11] MEDS: ETHAMBUTOL HCL 400 MG TAB PO SCH (09:26)
[2017-01-11] MEDS: RIFABUTIN 150 MG CAP PO SCH (09:27)
[2017-01-11] MEDS: AZITHROMYCIN 250 MG TAB PO SCH (09:27)
[2017-01-11] MEDS: GABAPENTIN 300 MG CAP PO SCH (09:27)
[2017-01-11] MEDS: DOCUSATE SODIUM 100 MG CAP PO SCH (09:27)
[2017-01-11] MEDS: PANTOPRAZOLE SODIUM 40 MG TAB PO SCH (09:27)
[2017-01-11] MEDS: PHYTONADIONE 2.5 MG/2.5 ML ORAL UDL PO SCH (09:28)
--- NOTE | 2017-01-11 10:28 | PDIAF ---
- Diagnosis Diagnosis: SBO/HIV Code Status: Full Code - Medication Management Discharge Medications: Medications to Continue on Transfer Darunavir Ethanolate [Prezista] 800 mg PO DAILY 04/29/16 [Last Taken 12/26/16] Emtricitabine/Tenofovir [Truvada 200MG/300MG (*)] 1 tab PO DAILY 04/29/16 [Last Taken 12/26/16] Ferrous Sulfate [Ferrous Sulf 325 MG (*)] 325 mg PO DAILY 04/29/16 [Last Taken 12/26/16] Ritonavir [Norvir] 100 mg PO DAILY 04/29/16 [Last Taken 12/26/16] Azithromycin [Zithromax] 500 mg PO DAILY 12/28/16 [Last Taken 12/26/16] Multivitamins [Multivitamin (*)] 1 each PO DAILY 12/28/16 [Last Taken Unknown] Rifabutin 150 mg PO DAILY 12/28/16 [Last Taken 12/26/16] Docusate Sodium [Colace 100 MG (*)] 100 mg PO BID #60 cap 01/09/17 [Last Taken Unknown] Ethambutol HCl [Myambutol 400 MG (*)] 800 mg PO DAILY tab 01/09/17 [Last Taken Unknown] Gabapentin [Neurontin 300 MG (*)] 900 mg PO TID #90 cap 01/09/17 [Last Taken Unknown] Sulfamethox/Tmp 400/80 mg [Sulfamethoxazole-Tmp SS] 1 ea PO DAILY #30 tab [Last Taken Unknown] morphINE SR [Ms Contin/Oramorph 15 mg (*)] 15 mg PO BID #20 tab 01/09/17 [Last Taken Unknown] oxyCODONE IR [Oxycodone Ir (*)] 5 mg PO Q3H PRN #30 tab 01/09/17 [Last Taken Unknown] predniSONE 20 mg PO DAILY #60 tablet 01/09/17 [Last Taken Unknown] Strap Sewer Antibiotics: see med list, PCP/ID is Dr Alberto Discharge Medications: Refer to the Discharge Home Medication list for PRN reason. - Orders Services needed: Home Care, Registered Nurse, Certified State Federal Relations Deputy Director, Physical Therapy, Occupational Therapy Home Care Face to Face: I certify that this patient was under my care and that I had the required [id number] encounter meeting the encounter requirements on the discharge day. My findings support the fact that the patient is homebound as defined in Home Care Face to Face Continued: CMS Chapter 7 Medicare Benefits Manual 30.1.1 , The condition of the patient is such that there exists a normal inability to leave home and consequently, leaving home would require a considerable and taxing effort. Oxygen: none Diet Recommendation: no restrictions on diet Diet Texture: Regular Texture Diet Tube feeding: n/a Wound Care Instructions: please contact Dr Francois office for instructions, needs FU appt also Activity/Weight Bearing Restrictions: per PT/OT evals/recommendations - Labs/Radiology CBC Date: 01/13/17 (send to Dr Alberto) - Follow Up Care Current Providers and Referrals: Jas Francois MD [Medical Doctor] - follow up in 1 week Eloina Alberto MD [Primary Care Provider] - 01/17/17 10:00 am
--- NOTE | 2017-01-11 11:29 | GDS ---
[f rep st] DISCHARGE SUMMARY PROCEDURES: Laparotomy with adhesiolysis, drainage of abscess, and mesenteric biopsies by Dr. Francois on 12/28/2016, with noted abscess causing a small-bowel obstruction and diffuse cheesy white nodules of mesentery. ALL RELEVANT IMAGING: Abdominal CT on 12/28/2016 showing small bowel obstruction. ALL DIAGNOSES: 1. Acute small-bowel obstruction status post adhesiolysis, likely due to disseminated Mycobacterium avium complex. 2. Acquired immune deficiency syndrome with CD4 equal to 24 and low viral load. 3. 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 4. Acute on chronic pain syndrome. 5. Disseminated Mycobacterium avium complex. 6. Coagulopathy due to vitamin K deficiency. 7. Lower extremity neuropathy. 8. Anemia/neutropenia. 9. Acute blood loss anemia, postoperative. 10. General weakness. 11. Hypokalemia. HOSPITAL COURSE: A 41-year-old man, with a history of AIDS, presented with a small-bowel obstruction. He underwent operative surgery for this including adhesiolysis. He was found to have an intraabdominal abscess which was causing the small-bowel obstruction. Cultures from this have remained negative though suspicion is that this is from MAC. He does have a known diagnosis of disseminated MAC, followed by Dr. Alberto. He had a fever a few days postoperatively, thought to be due to immune reconstitution syndrome. He has been treated with prednisone for this. He did well postoperatively other than some significant debility. He has been mobilizing well, working with PT/OT. He is tolerating p.o. at this point without issue. HIV/AIDS: Will continue his triple antiretroviral therapy. Last CD4 count was low with a low viral load. He will follow with Dr. Alberto. Disseminated MAC: Continue rifabutin, ethambutol, and azithromycin. He has been treated with this as an outpatient. 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 He will be followed by Dr. Alberto as an outpatient. Chronic anemia/neutropenia: Thought to be related disseminated MAC/IRIS: Has improved with a short course of therapy as an inpatient. Will check CBC 2 days after discharge and send this to Dr. Alberto. FOLLOWUP: 1. Dr. Francois for postoperative followup. 2. Dr. Alberto for ongoing management of his disseminated MAC and HIV. DISPOSITION: He will be discharged home with home care. BILLING: I spent more than 30 minutes on the day of discharge coordinating care. /[id number]/MODL MTDD
--- NOTE | 2017-01-11 11:51 | ASDISCHSUM ---
Discharge Information Plan Status:Home with Home Health Medically Cleared to Leave:01/09/2017 Discharge Date:01/11/2017 11:42 AM CM D/C Disposition:Home Health Service ADT D/C Disposition:Home Health Service Projected Discharge Date:01/11/2017 11:59 AM Transportation at D/C:Cab Voucher Discharge Delay Reason: Follow-Up Date:01/11/2017 11:59 AM Discharge Slot: Final Diagnosis: Placement Information Referral Type:*Assisted/SNF Referral ID:[id number] Provider Name: Address 1: Phone Number: Address 2: Fax Number: City: Selection Factors: State: Referral Type:*Home Health Care Services Referral ID:[id number] Provider Name:[facility] Address 1:[address] [facility] [address] Address 2: City:[place] Selection Factors: State:[place] Patient Contact Information Contact Name:AMADEO Relationship: Address: Home Phone: Work Phone: City: Alternate Phone: [facility]/Zip Code: Email: Financial Information Financial Class:Medicare Advantage Plans Primary Plan Desc:[facility] [employer] Primary Plan Number:[id number] Secondary Plan Desc: Secondary Plan Number: Assessment Information [facility] CM Progress Note CM Note CM Note Notes: Pt. is a 41-year-old disabled man admitted for a small bowel obstruction. Pt. having pain. Had surgery. Pt. w/ hx. of HIV, AIDS, neuropathy. Works with Dr. Alberto on an outpatient basis. PT and OT are consulted. Await their recommendations. SHEMAR/SADIE to follow. Date Signed: 12/29/2016 03:01 PM Electronically Signed By:Kati Cruz LCSW [facility] CM Progress Note CM Note CM Note Notes: PT and OT both recommending SNF rehab at this time. Bedside RN states Pt. interested in SNF and OK with options outside [place]. Pt. has [employer] Medicare insurance. SWer sent [employer] referrals to [facility], [facility], and [facility] [place]. If indicated, PASRR will need to be completed. CM to follow for d/c POC. Date Signed: 12/30/2016 03:10 PM Electronically Signed By:Kati Cruz LCSW [facility] CM Progress Note CM Note CM Note Notes: [facility] and [facility] are considering for SNF d/c. Ctr at will do onsite visit tomorrow. [facility] has accepted pt. Date Signed: 01/01/2017 03:27 PM Electronically Signed By:TYRON Diaz [facility] CM Progress Note CM Note CM Note Notes: CM met w/ pt for dispo planning. Pt is interested in going to [facility] because there is long-term care attached to that facility. 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 Qian in this AM to meet w/ pt. Pt continues to be on clear liquids at this time. CM to follow. Date Signed: 01/02/2017 01:55 PM Electronically Signed By:Katie Isabela, CLERK TO JUSTICE [facility] CM Progress Note CM Note CM Note Notes: CM met w/ pt for dispo planning. Pt would like more information on [facility] and [facility]. CM provided pt w/ info on both facilities. CM also provided pt w/ phone number for liason for [facility]. Pt reports that he will let CM know as soon as he has come to a decision. PT notes from yesterday still indicate that the recommendation is SNF. CM sent updated info to both facilities. CM to follow. Date Signed: 01/04/2017 02:00 PM Electronically Signed By:DINA Mckinnon [facility] CM Progress Note CM Note CM Note Notes: Today after checking in with Pt. several times, Pt. informed SWer he wants to go to [facility] at d/c. Let Qian at know. She will submit for auth tomorrow. SWer sent updated progress notes and therapy notes today. Will send non-triggering PASRR tomorrow. Date Signed: 01/05/2017 05:21 PM Electronically Signed By:Kati Cruz LCSW [facility] CM Progress Note CM Note CM Note Notes: Today SWeboy and MD consulted via phone. After seeing Pt. today, MD states Pt. will be ready for d/c tomorrow. Plan is to d/c to [facility] for rehab. Authorization is complete for Monday, Monday, and Monday. Non triggering PASRR completed and "fax attached" to [employer] today. Sent PASRR via [employer] to [facility] today. Franca let Qian at know about d/c tomorrow. Also let colleague RADHA NOEL know about d/c tomorrow. Date Signed: 01/06/2017 12:38 PM Electronically Signed By:Kati Cruz LCSW [facility] SADIE Progress Note CM Note SADIE Note Notes: Franca learned later in day today that Dr. Alberto plans for Monday d/c of Pt. Franca let [facility] know. did not anticipate problems at this point in time. Date Signed: 01/06/2017 03:26 PM Electronically Signed By:Kati Cruz LCSW [facility] SADIE Progress Note CM Note CM Note Notes: SADIE spoke w/ pt regarding d/c POC. Pt reports that he is not interested in going to [facility] because he is unable to go back and forth to his apartment. SADIE notified Qian at [facility] of this. Pt is appealing his discharge. SADIE explained to pt if Medicare doesn't find that it was necessary for him to stay in the hospital he would be charged. Pt reports that if he gets charged he will "have some tea and laugh about it". Pt would like to d/c home w/ [facility], [facility] (PT, OT, RN). CM called [facility] and made the referral. [facility] can follow pt at time of d/c. CM to follow. Date Signed: 01/09/2017 02:34 PM Electronically Signed By:DINA Mckinnon [facility] Progress Note CM Note CM Note Notes: Pts request for an appeal has been denied from [employer]. According to Medicare pt is allowed to stay until tomorrow at 12pm. Pt is requesting to stay until then. notified Chiara, community development manager of this. Vivi from [facility] [employer] has spoken to pt about this matter. CM to follow. Date Signed: 01/10/2017 02:29 PM Electronically Signed By:DINA Mckinnon Intervention Information Intervention Type:*IM-Signed Date of Service:01/06/2017 02:36 PM Patient Type:Inpatient Staff Member:Vivi Rivero Hours: Discipline: Severity: Comment: Intervention Type:*IM-Signed Date of Service:01/09/2017 11:57 AM Patient Type:Inpatient Staff Member:Vivi Rivero Hours: Discipline: Severity: Comment:
[2017-01-14] MEDS ORDERED: predniSONE 20 MG TAB PO SCH (09:00)
== END 2017-01-11 11:42 | disposition home health service (06) | DRG 335 ==
LOC: EDUNIT# → F2N 13:58 → F3E 18:03
PROVIDERS: ADMIT Internal Medicine; ATTEND Internal Medicine
DX: K65.1 Peritoneal abscess (principal); B20 Human immunodeficiency virus [HIV] disease; A31.0 Pulmonary mycobacterial infection; D62 Acute posthemorrhagic anemia; G89.29 Other chronic pain; E56.1 Deficiency of vitamin K; G62.9 Polyneuropathy, unspecified; D70.9 Neutropenia, unspecified; E87.6 Hypokalemia
CPT/HCPCS: 82947-QW; 84134-90; 85240-90; 85250-90; 85270-90; 85280-90; 85670-90; 86777-90; 97112-GP; 97116-GP; 97162-GP; 97165-GO; 97530-GO; 97530-GP; 97535-GO; G8978-GP-CL; G8979-GP-CI; G8980-GP-CI; G8987-GO-CM; G8989-GO-CJ; J0330; J0694; J1170; J2001; J2250; J2405; J2550; J2704; J2765; J3010; J3430; J3475; J3490; P9016; P9017; Q9967

== ENCOUNTER 2017-09-29 02:03 | Emergency (ER) | payer OTHER ==
[2017-09-29 02:15] VITALS: BP 155/96
[2017-09-29] MEDS ORDERED: oxyCODONE IR 5 MG TAB PO ONE (02:24)
--- NOTE | 2017-09-29 02:27 | EDPHY ---
H & P Stated Complaint: lazaro feet pain, hx neuropathy Time Seen by Provider: 09/29/17 02:39 HPI/ROS: HPI The patient presents with bilateral leg pain which begins in his feet and radiates up throughout his legs which is described as a tingling discomfort. He has a diagnosis of neuropathy, likely related to underlying HIV disease. As he has been taking OxyContin 10 mg four times daily for the last 7 months. He ran out of his medication 2 days ago and since then his pain has become worse. He says he does not have a prescription refill and gets this medication from his infectious disease doctor Dr. Alberto. He does not have any skin changes. He is brought in by ambulance. REVIEW OF SYSTEMS Constitutional: No fever, no chills. Eyes: No discharge. ENT: No sore throat. Cardiovascular: No chest pain, no palpitations. Respiratory: No cough, no shortness of breath. Gastrointestinal: No abdominal pain, no vomiting. Genitourinary: No hematuria. Musculoskeletal: No back pain. Skin: No rashes. Neurological: No headache. PMHx: HIV Soc Hx: Currently staying at a hotel in [facility] PHYSICAL General Appearance: Alert, no distress Eyes: Pupils equal and round no pallor or injection ENT, Mouth: Mucous membranes moist Respiratory: There are no retractions, lungs are clear to auscultation Cardiovascular: Regular rate and rhythm Gastrointestinal: Abdomen is soft and non-tender, no masses, bowel sounds normal Neurological: A&O, moves all extremities Skin: Warm and dry, both feet with scaling of the skin, 2+ DP pulses, full range of motion of toes Musculoskeletal: Neck is supple non tender Extremities: symmetrical, full range of motion Psychiatric: Patient is oriented X 3, there is no agitation Source: Patient Exam Limitations: No limitations - Personal History Current Tetanus Diphtheria and Acellular Pertussis (TDAP): No - Medical/Surgical History Hx Asthma: No Hx Chronic Respiratory Disease: No Hx Diabetes: No Hx Cardiac Disease: No Hx Renal Disease: No Hx Cirrhosis: No Hx Alcoholism: Yes Hx HIV/AIDS: Yes Hx Splenectomy or Spleen Trauma: No Other PMH: HIV+, MAC?, ETOH abuse, Drug abuse. abd surgery for "abscess", neuropathy - Social History Smoking Status: Current some day smoker Constitutional: Initial Vital Signs Temperature (C) 37.0 C 09/29/17 02:13 Heart Rate 99 09/29/17 02:13 Respiratory Rate 18 09/29/17 02:13 Blood Pressure 155/96 H 09/29/17 02:13 O2 Sat (%) 98 09/29/17 02:13 O2 Delivery Mode Room Air Allergies/Adverse Reactions: decongestant's Allergy (Uncoded 09/29/17 02:08) Other-Enter Comments Home Medications: Medication Instructions Recorded Darunavir Ethanolate [Prezista] 800 mg PO DAILY 04/29/16 Emtricitabine/Tenofovir [Truvada 1 tab PO DAILY 04/29/16 200MG/300MG (*)] Ferrous Sulfate [Ferrous Sulf 325 325 mg PO DAILY 04/29/16 MG (*)] Ritonavir [Norvir] 100 mg PO DAILY 04/29/16 Azithromycin [Zithromax] 500 mg PO DAILY 12/28/16 Multivitamins [Multivitamin (*)] 1 each PO DAILY 12/28/16 Rifabutin 150 mg PO DAILY 12/28/16 Docusate Sodium [Colace 100 MG (*)] 100 mg PO BID #60 cap 01/09/17 Ethambutol HCl [Myambutol 400 MG 800 mg PO DAILY tab 01/09/17 (*)] Gabapentin [Neurontin 300 MG (*)] 900 mg PO TID #90 cap 01/09/17 Sulfamethox/Tmp 400/80 mg 1 ea PO DAILY #30 tab 01/09/17 [Sulfamethoxazole-Tmp SS] morphINE SR [Ms Contin/Oramorph 15 15 mg PO BID #20 tab 01/09/17 mg (*)] oxyCODONE IR [Oxycodone Ir (*)] 5 mg PO Q3H PRN #30 tab 01/09/17 predniSONE 20 mg PO DAILY #60 tablet 01/09/17 Medical Decision Making Differential Diagnosis: 42-year-old male with HIV and neuropathy presents with bilateral foot pain which is associated with paresthesias and feels like pain from his neuropathy, exacerbated since running out of his OxyContin 2 days ago. On exam, he has no signs of infection, his pulses are normal. I told him I can give him a tab of OxyContin here, however I cannot give him any pain medication to go home with or refill of his prescription, this will have to come from his primary treating physician. He is happy with this plan. He will be discharged from the emergency department. 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 We cannot refill pain medication prescriptions from the emergency department. Referrals: Eloina Alberto MD [Medical Doctor] - As per Instructions
== END 2017-09-29 02:44 | disposition home or self-care (01) ==
LOC: EDUNIT#
DX: M79.671 Pain in right foot (principal); M79.672 Pain in left foot; G62.9 Polyneuropathy, unspecified; B20 Human immunodeficiency virus [HIV] disease; F17.200 Nicotine dependence, unspecified, uncomplicated

== ENCOUNTER 2018-04-17 07:21 | Emergency (ER) | payer OTHER ==
[2018-04-17] MEDS ORDERED: KETOROLAC 30 MG/1 ML SDV IM ONE (07:32)
[2018-04-17] MEDS ORDERED: ONDANSETRON DISINTEGRATING 4 MG TAB PO ONE (07:33)
[2018-04-17 07:36] VITALS: BP 111/74
--- NOTE | 2018-04-17 07:42 | EDPHY ---
H & P Time Seen by Provider: 04/17/18 07:27 HPI/ROS: HPI Foot pain. 43-year-old male, homeless, by ambulance. He has a history of peripheral neuropathy and chronic pain in his feet because of this. He states that he is currently taking oxycodone for his pain. He reports that he has tried gabapentin in the past and has not had relief with this medication. He presents to the emergency department complaining of pain associated with his peripheral neuropathy in his feet. He reports this is the same pain he has been having for years. He also reports that he has had some nausea and intermittent vomiting over the last 2 weeks. There is no history of trauma. He denies fever. He has been at the custodial and denies prolonged exposure to the weather/elements. ROS: Constitutional: No fever, no chills. As above. Eyes: No discharge. No changes in vision. ENT: No sore throat. No nasal congestion or rhinorrhea. Respiratory: No cough. No shortness of breath. Cardiac: No chest pain, no palpitations. Gastrointestinal: No abdominal pain, as above, no diarrhea. Genitourinary: No hematuria. No dysuria or increased frequency with urination. Musculoskeletal: No back pain. No neck pain. As above. Skin: No rashes. Neurological: No headache. No new focal weakness or altered sensation. Past medical history: HIV positive, multiple abdominal surgeries, abdominal abscess, alcohol abuse, polysubstance abuse, peripheral neuropathy. Homeless. Social history: Homeless. Smoker. As above. Here by himself. Physical Exam: General Appearance: Alert, no distress. He has his headphones on and is listening to music. This patient is responding to questions appropriately and in full sentences. This patient appears well-hydrated and well-nourished. Eyes: Pupils equal and round no pallor or injection. No lid edema, erythema or injection. Respiratory: There are no retractions, lungs are clear to auscultation with good air movement bilaterally. Cardiovascular: Regular rate and rhythm. No murmur. Gastrointestinal: Abdomen is soft and nontender on deep palpation throughout, no masses, bowel sounds normal. No focal tenderness at McBurney's point. No Noriega sign. Neurological: Motor sensory function is grossly intact. Cranial nerves are normal. Cerebellar function is normal. Skin: Warm and dry, no rashes. Examination of his feet specifically, he does have some dry and flaky skin, this looks consistent with a mild dermatitis, there are no ulcerations, no evidence of immersion foot or frostbite. No significant erythema or warmth. No masses. He has capillary refill in all of his digits. Musculoskeletal: Neck is supple and nontender. Extremities are symmetrical. All joints range without pain or impingement. Psychiatric: No agitation. No depression. Database: EKG: Imaging: Procedures: Emergency department course: Triage vital signs reviewed. This patient has a benign abdomen. He has a normal creatinine from 2018 and has no contraindications to NSAIDs. Specifically he denies gastric ulcers or kidney dysfunction. He declines Neurontin. I will give him a 1 time intramuscular dose of Toradol. He also received oral Zofran for mild nausea. I explained to him that peripheral neuropathy is difficult to treat. I explained the most important thing for him is to keep his feet warm and dry. He does feel comfortable being discharged. I do not feel that any further emergent see medical workup is required at this time. Will provide him with transport to the custodial. He is in agreement with this plan. I stressed close follow-up with his primary care physician for re- evaluation and ongoing management. Return to emergency department precautions discussed. All of his questions were answered. He was discharged from the emergency department in good condition. Differential Diagnosis: The differential diagnosis on this patient includes but is not limited to peripheral neuropathy. Immersion foot, frostbite, cellulitis, surgical etiology of vomiting and abdominal pain unlikely. This represents a partial list of diagnoses considered. These considerations are based on history, physical exam, past history, reassessment and diagnostic testing. Smoking Status: Current every day smoker Constitutional: Initial Vital Signs Temperature (C) 36.9 C 04/17/18 07:27 Heart Rate 70 04/17/18 07:27 Respiratory Rate 18 04/17/18 07:27 Blood Pressure 111/74 04/17/18 07:27 O2 Sat (%) 95 04/17/18 07:27 O2 Delivery Mode Room Air Allergies/Adverse Reactions: "sleep med" Allergy (Uncoded 10/15/17 10:03) decongestant's Allergy (Uncoded 09/29/17 02:08) Other-Enter Comments Home Medications: Medication Instructions Recorded Ritonavir [Norvir] 100 mg PO DAILY 04/29/16 Azithromycin [Zithromax] 500 mg PO DAILY 12/28/16 Rifabutin 150 mg PO DAILY 12/28/16 Ethambutol HCl [Myambutol 400 MG 800 mg PO DAILY tab 01/09/17 (*)] Gabapentin [Neurontin 300 MG (*)] 900 mg PO TID #90 cap 01/09/17 Sulfamethox/Tmp 400/80 mg 1 ea PO DAILY #30 tab 01/09/17 [Sulfamethoxazole-Tmp SS] oxyCODONE IR [Oxycodone Ir (*)] 5 mg PO Q3H PRN #30 tab 01/09/17 predniSONE 20 mg PO DAILY #60 tablet 01/09/17 Departure - Departure Disposition: Home, Routine, Self-Care Clinical Impression: Peripheral neuropathy Condition: Good Instructions: Peripheral Neuropathy (ED) Additional Instructions: Read and follow provided instructions. Follow-up with your primary care physician at [facility] in 1-2 days for re -evaluation as discussed. Take your medication as prescribed. Do not drink alcohol. Return to the emergency department for worsening pain, blisters or ulcerations on her feet, discoloration or significant swelling on your feet or other serious concerns. Referrals: [facility],. [Clinic] - As per Instructions
== END 2018-04-17 08:25 | disposition home or self-care (01) ==
LOC: EDBD → EDUNIT#
DX: G62.9 Polyneuropathy, unspecified (principal); B20 Human immunodeficiency virus [HIV] disease; F17.200 Nicotine dependence, unspecified, uncomplicated; Z59.0 Homelessness
CPT/HCPCS: 96372; 99284; J1885

== ENCOUNTER 2018-07-31 02:14 | Emergency (ER) | payer OTHER ==
[2018-07-31] MEDS ORDERED: ACETAMINOPHEN 500 MG TAB ONE (02:23)
[2018-07-31] MEDS ORDERED: ACETAMINOPHEN 500 MG TAB PO ONE (02:24)
--- NOTE | 2018-07-31 02:27 | EDPHY ---
H & P Stated Complaint: chronic bilateral LE and back pain Time Seen by Provider: 07/31/18 02:17 HPI/ROS: Chief Complaint: Leg and back pain HPI: 43-year-old HIV-positive male with a history of neuropathy is presenting complaining of leg and back pain. Patient states he ran out of his oxycodone prescription several days ago. He does not have an appointment with his infectious disease doctor until tomorrow. He has not taken any other medications. Denies any new symptoms. No fevers or chills. He is compliant with his other medications. He does not know his viral load for cell counts but says the last time he discussed with Dr. Chin told they were "good". No recent falls. No other injuries. I have reviewed the prescription drug monitoring program web site. He had 120 oxycodone filled on the 27 of June. These have should have gotten him through the 27 of July. He also had 15 additional tablets filled on the 23 of July. If he had been taking them as prescribed he would have had enough to get him through August 01, the day of his appointment with his infectious disease doctor. ROS: 10 systems were reviewed and were negative except those elements noted in the HPI. PMH: HIV, neuropathy Social History: No smoking, no alcohol, currently homeless Family History: non-contributory Physical Exam: Gen: Awake, Alert, No Distress HEENT: Nose: no rhinorrhea Eyes: PERRLA, EOMI Mouth: Moist mucosa Neck: Supple, no JVD Chest: nontender, lungs clear to auscultation Heart: S1, S2 normal, no murmur Abd: Soft, non-tender, no guarding Back: no CVA tenderness, no midline tenderness Ext: no edema, non-tender Skin: no rash Neuro: CN II-XII intact, decreased sensation bilateral lower extremities. No rash, no erythema, Strength 5/5 in bilateral upper and lower extremities - Personal History Current Tetanus Diphtheria and Acellular Pertussis (TDAP): Unsure - Medical/Surgical History Hx Asthma: No Hx Chronic Respiratory Disease: No Hx Diabetes: No Hx Cardiac Disease: No Hx Renal Disease: No Hx Cirrhosis: No Hx Alcoholism: Yes Hx HIV/AIDS: Yes Hx Splenectomy or Spleen Trauma: No Other PMH: HIV+, MAC?, ETOH abuse, Drug abuse. abd surgery for "abscess", neuropathy - Social History Smoking Status: Former smoker Constitutional: Initial Vital Signs Temperature (C) 36.6 C 07/31/18 02:17 Heart Rate 62 07/31/18 02:17 Respiratory Rate 16 07/31/18 02:17 Blood Pressure 136/100 H 07/31/18 02:17 O2 Sat (%) 97 07/31/18 02:17 O2 Delivery Mode Room Air Allergies/Adverse Reactions: "sleep med" Allergy (Uncoded 07/31/18 02:17) decongestant's Allergy (Uncoded 07/31/18 02:17) Other-Enter Comments Home Medications: Medication Instructions Recorded Ritonavir [Norvir] 100 mg PO DAILY 04/29/16 Azithromycin [Zithromax] 500 mg PO DAILY 12/28/16 Rifabutin 150 mg PO DAILY 12/28/16 Ethambutol HCl [Myambutol 400 MG 800 mg PO DAILY tab 01/09/17 (*)] Gabapentin [Neurontin 300 MG (*)] 900 mg PO TID #90 cap 01/09/17 Sulfamethox/Tmp 400/80 mg 1 ea PO DAILY #30 tab 01/09/17 [Sulfamethoxazole-Tmp SS] oxyCODONE IR [Oxycodone Ir (*)] 5 mg PO Q3H PRN #30 tab 01/09/17 predniSONE 20 mg PO DAILY #60 tablet 01/09/17 Medical Decision Making ED Course/Re-evaluation: 43-year-old male presenting complaining of his usual neuropathic pain. He states he ran out of his oxycodone. Had a been taking MS prescribed he would have had planning to get to the next couple of days to his appointment. I am not going to give him any opiates this morning. I have offered him Tylenol which she is taking. He will follow up with his infectious disease doctor as scheduled. Departure - Departure Disposition: Home, Routine, Self-Care Clinical Impression: Neuropathy Condition: Good Instructions: Peripheral Neuropathy (ED) Additional Instructions: Follow up with your infectious disease doctor tomorrow as scheduled. Referrals: Eloina Alberto MD [Medical Doctor] - As per Instructions
[2018-07-31 05:20] VITALS: BP 130/77
== END 2018-07-31 05:20 | disposition home or self-care (01) ==
LOC: EDUNIT#
DX: G62.9 Polyneuropathy, unspecified (principal)

== ENCOUNTER 2018-09-14 09:30 | Inpatient (IN) | payer OTHER | END 2018-09-20 15:39 | disposition home or self-care (01) | LOC: F3E 09-18 15:22 → F2W 13:45 ==